=== PATIENT | male | born 1960 | race African-American/Black ===

== ENCOUNTER 2017-02-12 04:05 | Emergency (ER) | payer OTHER ==
[~2017-02-12] VITALS: Ht 180.3 cm; Wt 78.6 kg
[2017-02-12 04:13] VITALS: TEMP 36.3; Ht 180.3 cm; Wt 78.6 kg
[2017-02-12] MEDS ORDERED: SODIUM CHLORIDE 0.9% 1000ML 1,000 ML IV STA (04:35)
[2017-02-12] MEDS ORDERED: ONDANSETRON INJ 2 MG/ML 2 ML VIAL IV STA (04:35)
[2017-02-12] MEDS ORDERED: MoRPHine SULFATE 10 MG/ML CARP/VIAL IV STA (04:35)
[2017-02-12 04:44] LABS: BASO % 0.1 %; BASO ABS # 0.01 K/uL (0-0.2); COMPLETE YES; EOS % 0.2 %; HEMATOCRIT 44.5 % (42-52); IG% 0.3 %; LYMPH % 14.3 %; LYMPH ABS # 1.44 K/uL (1.2-3.4); MEAN CELL VOLUME 84.4 fL (80-100); MEAN CORPUSCULAR HEMOGLOBIN 28.5 pg (25-34); MEAN CORPUSCULAR HGB CONC 33.7 g/dl (32-36); MEAN PLATELET VOLUME 10.6 fL (7.4-10.4); MONO % 3.9 %; NEUT % 81.2 %; PLATELET COUNT 302 K/uL (130-400); RED BLOOD COUNT 5.27 M/uL (4.7-6.1); WHITE BLOOD COUNT 10.08 K/uL (4.8-10.8)
[2017-02-12] MEDS ORDERED: OPTIRAY 320 IV PRN (04:45)
--- NOTE | 2017-02-12 05:08 | EMERGENCY ROOM VISIT NOTE ---
History First contact with patient: 04:23 Chief Complaint: ABDOMINAL PAIN Stated Complaint: ABDOMINAL PAIN/ EMISIS Nursing Triage Summary: pt presents by ems with c/o of abd pain that radiates to back that started yesterday,reports 1 episode of red tinged emesis but states drank grape juice earlier in the day, rates pain 10/10 History of Present Illness The patient is a 56 year old male who presents to the Emergency Room with complaints of abdominal pain which began yesterday. The patient reports he has had upper abdominal pain with radiation into the back which started yesterday morning when he woke up. He has been nauseous and had one episode of vomiting today. He believes there may have been a small amount of blood in the vomit, but is unsure. He states that he feels the abdominal pain as a cramping sensation and rates the discomfort a 7/10. He had some similar symptoms about 3 weeks ago which resolved without treatment. The patient does admit to fairly heavy alcohol use. He drinks at least one 24 ounce can of light beer per night , sometimes more. He denies any past medical history. He denies any fevers/ chills, chest pain/shortness of breath, changes in bowel movements or urinary symptoms. Review of Systems A complete 10 point review of systems was reviewed with the patient with pertinent positives and negatives as per history of present illness. All else were negative. Social History Smoking Status: Never Smoker Current/Historical Medications Scheduled Ciprofloxacin Hcl (Cipro), 500 MG PO BID Metronidazole (Flagyl), 500 MG PO TID Scheduled PRN Hydrocodone/Acetaminophen 5MG/325MG ([place] 5MG/325MG), 1-2 TABLET PO Q4H PRN for Pain Physical Exam Vital Signs Date Time Temp Pulse Resp B/P (MAP) Pulse Ox O2 Delivery O2 Flow Rate FiO2 02/12/17 09:12 71 18 138/85 99 02/12/17 07:35 67 16 144/92 98 Room Air 02/12/17 06:13 69 16 155/89 97 Room Air 02/12/17 04:13 36.3 64 15 177/102 99 Room Air Physical Exam VITALS: Vitals are noted on the nurse's note and reviewed by myself. Vital signs stable. GENERAL: This is a 56-year-old male, in no acute distress, nondiaphoretic, well- developed well-nourished. EARS: External auditory canals clear, tympanic membranes pearly garibay without erythema or effusion bilaterally. EYES: Pupils equal round and reactive to light and accommodation. MOUTH: Mucous membranes moist. Tonsils are not enlarged. Pharynx without erythema or exudate. NECK: Supple without nuchal rigidity. No lymphadenopathy. HEART: Regular rate and rhythm without murmurs gallops or rubs. LUNGS: Clear to auscultation bilaterally without wheezes, rales or rhonchi. No retractions or accessory muscle use. ABDOMEN: Positive bowel sounds x 4. Soft, generalized tenderness to palpation throughout the abdomen. No guarding or rebound tenderness. NEURO: Patient was alert and oriented to person place and time. Medical Decision & Procedures ER Provider Diagnostic Interpretation: CT SCAN OF THE ABDOMEN AND PELVIS WITH IV CONTRAST FINDINGS: Lung bases: The heart is normal in size and without pericardial effusion. The lung bases are clear. Liver: The contrast-enhanced liver is enlarged, measuring 19 cm in length. Liver demonstrates heterogeneous attenuation. The surface contour is normal. There is no intrahepatic biliary ductal dilatation. The hepatic veins and portal veins are patent. Mild periportal edema is observed. Gallbladder: Unremarkable. Spleen: Normal in size and attenuation. Pancreas: Unremarkable. Adrenal glands: Unremarkable. Kidneys: The contrast enhanced kidneys are normal in size and without hydronephrosis. The kidneys enhance symmetrically. Abdominal vasculature: The abdominal aorta is normal in course and caliber. Bowel: There is moderate diverticulosis of the right colon. There is inflammatory stranding identified around the cecum, likely representing mild acute diverticulitis of the right colon. No abscess is seen. No bowel obstruction is seen. The appendix is well-visualized and normal. Peritoneum: There is no intraperitoneal free air. Trace free fluid is seen in the right paracolic gutter. There is a small fat-containing umbilical hernia. Lymphadenopathy: There is a 3.4 x 2.0 cm necrotic appearing structure in the central mesentery seen on image 239. This likely represents an abnormal mesenteric lymph node. There are numerous additional mildly enlarged mesenteric lymph nodes with surrounding inflammatory stranding. A lead generation representative node is seen in the left upper quadrant on image #183 measuring 3.4 x 2.6 cm. Calcification containing nodes with stranding stranding are seen on image #215. A similar-appearing left external iliac chain node is seen on image #360. There is a 4.2 x 2.8 cm centrally necrotic appearing lymph node in the left groin seen on axial image #453. Pelvic viscera: The prostate gland is markedly enlarged and heterogeneous. There is median lobe hypertrophy. The bladder wall appears mildly thickened and trabeculated suggesting chronic outlet obstruction. Skeletal structures: There is mild lumbosacral spondylosis. No lytic or blastic lesions are seen. IMPRESSION: 1. Findings are consistent with mild acute diverticulitis of the right colon. No intraperitoneal free air is seen and there is no evidence of abscess. 2. There are numerous enlarged and abnormal appearing mesenteric lymph nodes, with similar-appearing enlarged nodes in the left iliac chain and left inguinal region. Several of these contain calcifications as well as central low attenuation which likely represents necrosis. The appearance is nonspecific, with both infectious and neoplastic etiologies in the differential. Mesenteric tuberculosis could have this appearance. Clinical correlation will be essential. 3. Hepatomegaly with evidence of periportal edema. 4. Prostatomegaly with evidence of chronic bladder outlet obstruction. 5. Additional findings as above. Laboratory Results 02/12/17 03:53 Red Blood Count 5.27, Mean Corpuscular Volume 84.4, Mean Corpuscular Hemoglobin 28.5, Mean Corpuscular Hemoglobin Concent 33.7, Mean Platelet Volume 10.6, Neutrophils (%) (Auto) 81.2, Lymphocytes (%) (Auto) 14.3, Monocytes (%) (Auto) 3.9, Eosinophils (%) (Auto) 0.2, Basophils (%) (Auto) 0.1, Neutrophils # (Auto) 8.19, Lymphocytes # (Auto) 1.44, Monocytes # (Auto) 0.39, Eosinophils # (Auto) 0.02, Basophils # (Auto) 0.01 02/12/17 03:53 Test 02/12/17 03:53 02/12/17 05:50 02/12/17 07:59 White Blood Count 10.08 K/uL (4.8-10.8) Red Blood Count 5.27 M/uL (4.7-6.1) Hemoglobin 15.0 g/dL (14.0-18.0) Hematocrit 44.5 % (42-52) Mean Corpuscular Volume 84.4 fL (80-100) Mean Corpuscular Hemoglobin 28.5 pg (25-34) Mean Corpuscular Hemoglobin Concent 33.7 g/dl (32-36) Platelet Count 302 K/uL (130-400) Mean Platelet Volume 10.6 fL (7.4-10.4) Neutrophils (%) (Auto) 81.2 % Lymphocytes (%) (Auto) 14.3 % Monocytes (%) (Auto) 3.9 % Eosinophils (%) (Auto) 0.2 % Basophils (%) (Auto) 0.1 % Neutrophils # (Auto) 8.19 K/uL (1.4-6.5) Lymphocytes # (Auto) 1.44 K/uL (1.2-3.4) Monocytes # (Auto) 0.39 K/uL (0.11-0.59) Eosinophils # (Auto) 0.02 K/uL (0-0.5) Basophils # (Auto) 0.01 K/uL (0-0.2) RDW Standard Deviation 46.1 fL (36.4-46.3) RDW Coefficient of Variation 14.9 % (11.5-14.5) Immature Granulocyte % (Auto) 0.3 % Immature Granulocyte # (Auto) 0.03 K/uL (0.00-0.02) Anion Gap 7.0 mmol/L (3-11) Est Creatinine Clear Calc Drug Dose 108.3 ml/min Estimated GFR () 115.6 Estimated GFR (Non- 99.8 BUN/Creatinine Ratio 11.8 (10-20) Calcium Level 9.0 mg/dl (8.5-10.1) Total Bilirubin 0.7 mg/dl (0.2-1) Aspartate Amino Transf (AST/SGOT) 19 U/L (15-37) Alanine Aminotransferase (ALT/SGPT) 29 U/L (12-78) Alkaline Phosphatase 80 U/L (45-117) Troponin I < 0.015 ng/ml (0-0.045) Total Protein 7.6 gm/dl (6.4-8.2) Albumin 3.7 gm/dl (3.4-5.0) Globulin 3.9 gm/dl (2.5-4.0) Albumin/Globulin Ratio 0.9 (0.9-2) Lipase 168 U/L (73-393) Chemistry Specimen Hemolysis Urine Color YELLOW Urine Appearance CLEAR (CLEAR) Urine pH 6.0 (4.5-7.5) Urine Specific [place] 1.031 (1.000-1.030) Urine Protein NEG (NEG) Urine Glucose (UA) NEG (NEG) Urine Ketones 2+ (NEG) Urine Occult Blood NEG (NEG) Urine Nitrite NEG (NEG) Urine Bilirubin NEG (NEG) Urine Urobilinogen NEG (NEG) Urine Leukocyte Esterase NEG (NEG) Bedside Lactic Acid Venous 0.71 mmol/L (0.90-1.70) Medications Administered Medications (Trade) Dose Ordered Sig/Tong Route Start Time Stop Time Status Last Admin Dose Admin Sodium Chloride 1,000 ml @ 999 mls/hr Q1H1M STAT IV 02/12/17 04:35 02/12/17 05:35 DC 02/12/17 05:48 999 MLS/HR Ondansetron HCl (Zofran Inj) 4 mg NOW STAT IV 02/12/17 04:35 02/12/17 04:37 DC 02/12/17 05:43 4 MG Morphine Sulfate (MoRPHine SULFATE INJ) 6 mg NOW STAT IV 02/12/17 04:35 02/12/17 04:37 DC 02/12/17 05:43 6 MG Tuberculin PPD 5 tu/Syringe 0.1 ml @ 0 mls/hr ONE ONCE INTRAD 02/12/17 08:15 02/12/17 08:16 DC 02/12/17 08:28 0.1 MLS/HR ECG Rate (beats per minute): 60 Rhythm: normal sinus Findings: no acute ischemic change, no ectopy Comparison ECG Date: no prior available ED Course The patient was evaluated as above. Labs were drawn and IV access was obtained. Patient was medicated with 1 L NSS, 6 mg morphine and [address] of the abdomen and pelvis was performed and read by radiology as above. The case was discussed with Dr. Tellez of radiology. Discharge instructions were reviewed with the patient. The patient verbalized understanding of my assessment and treatment plan and was discharged home in good condition. Medical Decision Differential diagnosis includes diverticulitis, appendicitis, pancreatitis, cholecystitis, small bowel obstruction, among others. The patient is a 56-year-old male who presents today complaining of upper abdominal pain and nausea. Labs revealed no leukocytosis, anemia, or concerning electrolyte abnormalities. LFTs and creatinine within normal limits. Lipase not elevated. Urinalysis was not suggestive of infection. CT scan was performed and did show acute diverticulitis. I feel is likely the cause of the patient's symptoms. However, CT also incidentally showed several necrotic lymph nodes as well as a mass concerning for malignancy or mesenteric tuberculosis. Point of care Lactic acid was obtained and was not elevated. I had a lengthy discussion with the patient. He does not seem to have any risk factors for tuberculosis. He has never been incarcerated for homeless. He does not work any healthcare facility. He has not traveled to any foreign countries. He denies any possible tuberculosis exposures. He denies any respiratory symptoms. The patient will certainly need a full workup for this, however he is not acutely ill and I feel this may be performed as an outpatient. Chest x-ray was performed does not show any pulmonary lesions. I do not feel that the patient has active TB based on this. He will have a PPD today which will be checked in 2 days. Case management was able to make the patient an appointment for follow-up with a primary care provider early next week. He will be treated with Cipro and Flagyl for his diverticulitis. Patient was informed not to drink alcohol while taking this medication. The patient's case was reviewed with Dr. Vang, ED attending physician, who agreed with my assessment and treatment plan. Based on the patient's presentation and work up, I feel the patient is stable for outpatient treatment. The patient was educated to return to the emergency department for any worsening of their current condition or new/concerning symptoms. He will follow up with [facility] primary care next week. Medication Reconcilliation Current Medication List: was personally reviewed by me Blood Pressure Screening Patient's blood pressure: Elevated blood pressure Blood pressure disposition: Elevated BP felt to be situational Impression Primary Impression: Acute diverticulitis Additional Impression: Intraabdominal mass Departure Information Dispostion Home / Self-Care Condition GOOD Prescriptions Hydrocodone/Acetaminophen 5MG/325MG ([place] 5MG/325MG) Tab 1-2 TABLET PO Q4H Y for Pain, #10 TAB For Initial Treatment Prov: Shirley Worthington PA-C 02/12/17 Metronidazole (Flagyl) 500 Mg Tab 500 MG PO TID for 10 Days, #30 TAB Prov: Shirley Worthington PA-C 02/12/17 Ciprofloxacin Hcl (CIPRO) 500 Mg Tab 500 MG PO BID for 10 Days, #20 TAB Prov: Shirley Worthington PA-C 02/12/17 Referrals Polly Bartlett D.O. (PCP) Patient Instructions My [facility] Additional Instructions You were prescribed ciprofloxacin to be taken as prescribed for 10 days. This is an antibiotic. All antibiotics have the potential to cause diarrhea. Stop this medication and contact a medical provider if you were to develop any significant adverse side effects including: wheezing, shortness of breath, passing out, vomiting, or a diffuse rash. Always take antibiotics as directed and COMPLETE the ENTIRE course regardless of the improvement of your symptoms. You were prescribed metronidazole to be taken as prescribed for 10 days. This is an antibiotic. All antibiotics have the potential to cause diarrhea. Stop this medication and contact a medical provider if you were to develop any significant adverse side effects including: wheezing, shortness of breath, passing out, vomiting, or a diffuse rash. Always take antibiotics as directed and COMPLETE the ENTIRE course regardless of the improvement of your symptoms. Do not drink any alcoholic taking this medication, Asacol severe nausea and vomiting. For pain control, you can use the following [id number] medicines (if >12 yo): - Regular strength (325mg/tab) Tylenol (acetaminophen) 2 tabs every 4-6 hours as needed. Do not exceed 12 tablets in a 24 hour period. Avoid taking more than 4 grams (4000 mg) of Tylenol per day. This includes any other sources of acetaminophen you may take on a regular basis. - Regular strength (200 mg/tab) Advil (ibuprofen) 1-2 tabs every 4-6 hours as needed. Do not exceed a dose of 3200 mg per day. You have been prescribed [place] to be used for pain control. Take 1-2 tablets every 4-6 hours as needed for pain. This is a narcotic medication. You cannot drive or consume alcohol while on this medicine. This medicine should only be used for pain that cannot be controlled with [id number] pain medicines. Return to the emergency department Wednesday or Wednesday to have your PPD (the injection in your arm) checked. Follow-up with a primary care provider as scheduled for you. Return to the emergency department with worsening pain, worsening vomiting, fevers or any other new/concerning symptoms. Problem Qualifiers
[2017-02-12 05:18] LABS: ALB/GLOB RATIO 0.9 (0.9-2); ALKALINE PHOSPHATASE 80 U/L (45-117); ALT/SGPT 29 U/L (12-78); AST/SGOT 19 U/L (15-37); BLOOD UREA NITROGEN 10 mg/dl (7-18); BUN/CREATININE RATIO 11.8 (10-20); CARBON DIOXIDE 29 mmol/L (21-32); CHLORIDE 100 mmol/L (98-107); CREATININE 0.83 mg/dl (0.60-1.40); GLUCOSE 104 mg/dl (70-99); POTASSIUM 3.5 mmol/L (3.5-5.1); SODIUM 136 mmol/L (136-145)
[2017-02-12 06:01] LABS: URINE APPEARANCE CLEAR (CLEAR); URINE BILIRUBIN NEG (NEG); URINE COLOR YELLOW; URINE NITRITE NEG (NEG); URINE SPECIFIC GRAVITY 1.031 (1.000-1.030); UROBILINOGEN NEG (NEG); ZZUR CULT IF INDIC CLEAN CATCH NO
[2017-02-12 06:03] LABS: MANUAL MICROSCOPIC REQUIRED? NO; REVIEW REQ? NO
--- NOTE | 2017-02-12 07:36 | DIAGNOSTIC IMAGING REPORT ---
CT SCAN OF THE ABDOMEN AND PELVIS WITH IV CONTRAST CLINICAL HISTORY: Generalized abdominal pain. COMPARISON STUDY: No priors. TECHNIQUE: Following the IV administration of 94 cc of Optiray 320, CT scan of the abdomen and pelvis is performed from the lung bases to the proximal femora. Images are reviewed in the axial, sagittal, and coronal planes. IV contrast was administered without complication. A dose lowering technique was utilized adhering to the principles of ALARA. CT DOSE: 371.04 mGy.cm FINDINGS: Lung bases: The heart is normal in size and without pericardial effusion. The lung bases are clear. Liver: The contrast-enhanced liver is enlarged, measuring 19 cm in length. Liver demonstrates heterogeneous attenuation. The surface contour is normal. There is no intrahepatic biliary ductal dilatation. The hepatic veins and portal veins are patent. Mild periportal edema is observed. Gallbladder: Unremarkable. Spleen: Normal in size and attenuation. Pancreas: Unremarkable. Adrenal glands: Unremarkable. Kidneys: The contrast enhanced kidneys are normal in size and without hydronephrosis. The kidneys enhance symmetrically. Abdominal vasculature: The abdominal aorta is normal in course and caliber. Bowel: There is moderate diverticulosis of the right colon. There is inflammatory stranding identified around the cecum, likely representing mild acute diverticulitis of the right colon. No abscess is seen. No bowel obstruction is seen. The appendix is well-visualized and normal. Peritoneum: There is no intraperitoneal free air. Trace free fluid is seen in the right paracolic gutter. There is a small fat-containing umbilical hernia. Lymphadenopathy: There is a 3.4 x 2.0 cm necrotic appearing structure in the central mesentery seen on image 239. This likely represents an abnormal mesenteric lymph node. There are numerous additional mildly enlarged mesenteric lymph nodes with surrounding inflammatory stranding. A accounts receivable representative node is seen in the left upper quadrant on image #183 measuring 3.4 x 2.6 cm. Calcification containing nodes with stranding stranding are seen on image #215. A similar-appearing left external iliac chain node is seen on image #360. There is a 4.2 x 2.8 cm centrally necrotic appearing lymph node in the left groin seen on axial image #453. Pelvic viscera: The prostate gland is markedly enlarged and heterogeneous. There is median lobe hypertrophy. The bladder wall appears mildly thickened and trabeculated suggesting chronic outlet obstruction. Skeletal structures: There is mild lumbosacral spondylosis. No lytic or blastic lesions are seen. IMPRESSION: 1. Findings are consistent with mild acute diverticulitis of the right colon. No intraperitoneal free air is seen and there is no evidence of abscess. 2. There are numerous enlarged and abnormal appearing mesenteric lymph nodes, with similar-appearing enlarged nodes in the left iliac chain and left inguinal region. Several of these contain calcifications as well as central low attenuation which likely represents necrosis. The appearance is nonspecific, with both infectious and neoplastic etiologies in the differential. Mesenteric tuberculosis could have this appearance. Clinical correlation will be essential. 3. Hepatomegaly with evidence of periportal edema. 4. Prostatomegaly with evidence of chronic bladder outlet obstruction. 5. Additional findings as above. Electronically signed by: Samuel Tellez M.D. 02/12/2017 7:35 AM Dictated Date/Time: 02/12/2017 7:03 AM
[2017-02-12] MEDS ORDERED: TUBERCULIN SKIN TEST 5 TU in SYRINGE 0 ML INTRAD ONE (08:15)
[2017-02-12] MEDS ORDERED: CIPR-255 PO (08:38)
[2017-02-12] MEDS ORDERED: HYDR-5688 PO (08:38)
[2017-02-12] MEDS ORDERED: METR-163 PO (08:38)
--- NOTE | 2017-02-12 08:42 | DIAGNOSTIC IMAGING REPORT ---
TWO VIEW CHEST CLINICAL HISTORY: Abnormal abdominal CT scan. Question of mesenteric tuberculosis. FINDINGS: PA and lateral chest radiographs are obtained. No prior studies are available for comparison at the time of dictation. The cardiomediastinal silhouette is unremarkable. The lungs and pleural spaces are clear. There is no pneumothorax. The bony thorax appears intact. IMPRESSION: The lungs are clear. Electronically signed by: Samuel Tellez M.D. 02/12/2017 8:41 AM Dictated Date/Time: 02/12/2017 8:38 AM
[2017-02-12 09:12] VITALS: BP 138/85; PULSE 71; O2SAT 99
== END 2017-02-12 09:12 | disposition home or self-care (01) ==
LOC: C.EDA 04:09
DX: K57.32 Diverticulitis of large intestine without perforation or abscess without bleeding (principal); R19.00 Intra-abdominal and pelvic swelling, mass and lump, unspecified site

== ENCOUNTER 2017-02-14 12:45 | Emergency (ER) | payer OTHER ==
[~2017-02-14] VITALS: Ht 180.3 cm; Wt 76.4 kg
[~2017-02-14 12:45] MED LIST: CIPR-255 PO; HYDR-5688 PO; METR-163 PO
[2017-02-14 12:48] VITALS: TEMP 36.7; Ht 180.3 cm; Wt 76.4 kg
--- NOTE | 2017-02-14 13:25 | EMERGENCY ROOM VISIT NOTE ---
History Report prepared by Keily: Dilia Fortune Under the Supervision of: Dr. Orlin King D.O. First contact with patient: 13:02 Chief Complaint: OTHER COMPLAINT Stated Complaint: CHECKING FOR TB History of Present Illness The patient is a 56 year old male who presents to the Emergency Room with complaints of needing a TB test read. He reports he had been experiencing abdominal pain recently, so after undergoing a CT scan, he had a PPD test placed. He was placed on antibiotics for an abdominal infection, which he states have helped his pain. Earlier today he noticed the PPD test placed on his right forearm was raised and red in color. The patient denies any recent cough or hemoptysis. He denies any history of time in longterm, known contacts with TB or ever living with someone with TB. He denies any recent travel. He has experienced some recent weight loss. 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 A total of 6 systems reviewed and were otherwise negative. Past Medical & Surgical Medical Problems: (1) No significant past medical history Social History Smoking Status: Never Smoker Alcohol Use: occasionally Drug Use: none Marital Status: Housing Status: lives with family Occupation Status: employed Current/Historical Medications Scheduled Ciprofloxacin Hcl (Cipro), 500 MG PO BID Metronidazole (Flagyl), 500 MG PO TID Scheduled PRN Hydrocodone/Acetaminophen 5MG/325MG (Taberg 5MG/325MG), 1-2 TABLET PO Q4H PRN for Pain Allergies Coded Allergies: No Known Allergies (Unverified , 02/12/17) Physical Exam Vital Signs Date Time Temp Pulse Resp B/P (MAP) Pulse Ox O2 Delivery O2 Flow Rate FiO2 02/14/17 14:56 86 18 165/99 97 Room Air 02/14/17 12:48 36.7 71 18 159/95 94 Room Air Physical Exam GENERAL: Patient is awake, alert, in no acute distress, patient is resting comfortably and showing no signs of anxiety EYES: The conjunctivae are clear. The pupils are round and reactive. EARS, NOSE, MOUTH AND THROAT: The nose is without any evidence of any deformity. Mucous membranes are moist tongue is midline RESPIRATORY: Normal respiratory effort is noted there is no evidence of wheezing rhonchi or rales CARDIOVASCULAR: Regular rate and rhythm noted there no murmurs rubs or gallops normal S1 normal S2 GASTROINTESTINAL: The abdomen is soft. Bowel sounds are present in all quadrants. Abdomen is nontender MUSCULOSKELETAL/EXTREMITIES: There is no evidence of gross deformity full range of motion is noted in the hips and shoulders SKIN: There is a reddened area on right forearm where PPD was placed. There is erythema about 1 to 15 cm in diameter and the area is minimally raised. There is no obvious evidence of any rash. There are no petechiae, pallor or cyanosis noted. NEUROLOGIC: Patient is awake alert and oriented x3 Medical Decision & Procedures Laboratory Results Test 02/14/17 14:32 Laboratory results per my review. ED Course 1305: The patient was evaluated in room D1. A complete history and physical examination were performed. 1400: I spoke with one of the ED health supervisor paper coating. She recommends blood work and I consult Infectious Disease. 1432: I discussed the patients case with Jose Jay Infectious Disease. She recommends follow up with his PCP and to return if his symptoms worsen. 1500: I reevaluated the patient. He is feeling well and resting comfortably. I discussed his results and discharge instructions and he verbalized complete understanding and agreement. Medical Decision Prior records/ancillary studies reviewed. Triage Nursing notes reviewed. The patient is a 56-year-old male who presented to the emergency department for an evaluation of a PPD which required reading today. This was placed 2 days ago after an abnormal CAT scan the abdomen and pelvis. The patient does not have any respiratory complaints including no fever or hemoptysis at this time. He has a normal chest x-ray. The patient had erythema and induration at the PPD site. I discussed this with the on-call infectious disease physician. At this time the patient had further blood work drawn for tuberculosis. Follow-up with his primary care physician for the results. He has a scheduled appointment this Wednesday. He was also encouraged to return to the emergency Department immediately if he develop any respiratory symptoms such as fever cough or hemoptysis difficulty breathing or if need arises. Medication Reconcilliation Current Medication List: was personally reviewed by me Blood Pressure Screening Patient's blood pressure: Elevated blood pressure Blood pressure disposition: Referred to PCP Consults Time Called: 1430 Consulting Physician: Jose Jay Infectious Disease Returned Call: 1432 I discussed the patients case with Dr. Piper, [facility] Infectious Disease. She recommends follow up with his PCP and to return if his symptoms worsen. Impression Primary Impression: Positive PPD Scribe Attestation The scribe's documentation has been prepared under my direction and personally reviewed by me in its entirety. I confirm that the note above accurately reflects all work, treatment, procedures, and medical decision making performed by me. Departure Information Dispostion Home / Self-Care Referrals Polly Bartlett D.O. (PCP) Patient Instructions My [facility], TB Screening Skin, Tuberculin purified protein derivative PPD injection Additional Instructions Continue all medications as prescribed. Follow-up with your family this week for reevaluation and for laboratory results. Return to the emergency apartment immediately if symptoms worsen or if need arises
[2017-02-14 14:56] VITALS: BP 165/99; PULSE 86; O2SAT 97
== END 2017-02-14 15:22 | disposition home or self-care (01) ==
LOC: C.EDB 12:47 → C.EDD 15:22
DX: R76.11 Nonspecific reaction to tuberculin skin test without active tuberculosis (principal); R03.0 Elevated blood-pressure reading, without diagnosis of hypertension

== ENCOUNTER → 2017-05-26 | Outpatient (CLI) | payer OTHER ==
[~2017-05-26] MED LIST changes: -METR-163 PO
--- NOTE | 2017-05-26 12:13 | DIAGNOSTIC IMAGING REPORT ---
PET/CT SKULL-THIGH HISTORY: Lymphoma LYMPHOMA TECHNIQUE: PET/CT was performed from the base of the skull through the pelvis following the intravenous administration of 15.2 mCi of F18-FDG. Non-contrast CT imaging was performed over the same range without breath-hold for attenuation correction of PET images and anatomic correlation, but not for primary interpretation as it is not of standard diagnostic quality. CT DOSE: COMPARISON: CT abdomen and pelvis 02/12/2017 FINDINGS: HEAD AND NECK: There is no FDG-avid disease or significant lymphadenopathy in the imaged portions of the head and the neck. CHEST: Physiologic activity within the myocardium. No metabolically active hilar or mediastinal adenopathy. Bulky right axillary adenopathy with the largest right axillary node measuring 3 cm. SUV characteristics are benign 0.3. Prakash pathology a more superior location as a moderate increase in metabolic activity characteristics of the 2.5 or less. Maximum linear dimension in superior right axilla is 2 cm. No significant left axillary adenopathy is appreciated. ABDOMEN/PELVIS: Within the abdomen and pelvis are unremarkable activity characteristics of liver and spleen. Numerous omental and mesenteric prakash changes are present. Celiac axis prakash pathology measures 2.4 cm with metabolic activity characteristics of the 3.5. Left central prakash pathology measures up to 3.5 cm with SUV characteristics of 11. Nodes within the left mid abdominal region are somewhat matted and extending in an inferior fashion. Additional for nodes are also appreciated. Activity characteristics of the kidneys and urinary tracts appear unremarkable. There are findings of increased metabolic activity of known pathology in the right lower quadrant SUVs of 8.4. Maximum dimension is approximately 5.6 cm. Several left pelvic sidewall nodes are present measuring up to 2.6 cm and demonstrating SUV characteristics of 8. The inguinal regions are considered negative for significant pathologic prakash change. MUSCULOSKELETAL: There is no FDG-avid or destructive bone lesion. IMPRESSION: 1. 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 2. The largest prakash complexes involving the right axilla, periaortic region, with bulky adenopathy noted throughout the omental and mesenteric regions as described above. 3. Base to the prior study this would indicate moderately progressive disease. The above report was generated using voice recognition software. It may contain grammatical, syntax or spelling errors. Electronically signed by: Festus Rendon M.D. 05/26/2017 12:12 PM Dictated Date/Time: 05/26/2017 11:52 AM
== END | disposition home or self-care (01) ==
LOC: C.PET 09:05
PROVIDERS: ATTEND Internal Medicine Hematology
DX: C83.33 Diffuse large B-cell lymphoma, intra-abdominal lymph nodes (principal)

== ENCOUNTER 2024-07-11 12:35 | Observation (INO) ==
--- NOTE | 2024-07-11 12:45 | Emergency Department Note ---
Impression & Plan Abnormal EKG, Lymphoma in remission, SOB (shortness of breath) on exertion, Bilateral lower extremity edema, Hypokalemia ED Provider Note NAME: IVANNA GARCIA AGE: 63 SEX: M : 1960 ARRIVES VIA: Walk-In INFORMANT: Patient, ED PROVIDER(S): Jimi Martin MD CHIEF COMPLAINT: Shortness of breath MEDICAL DECISION MAKING: Patient presents with the above. IV was established and blood work was obtained. I did review the patient's outpatient EKG and this was repeated here. The patient does have diffuse T wave versions in the anterior lateral leads as well as inferiorly with an associated trace elevation of V2. No obvious STEMI criteria as this is not in contiguous leads. Patient without active chest pain. IV was established and blood work was obtained. Mild leukopenia and anemia with a white count of 4.09 and hemoglobin 11.4 respectively. Platelet count is unremarkable. Kidney function unremarkable. Troponin negative BNP not elevated. Urinalysis does not show evidence of obvious infection. Patient's chest x-ray does not show obvious volume overload. DVT ultrasound negative. Given the patient's abnormal EKG do believe the patient would benefit from at minimum continued cardiac testing as well as an echocardiogram with further discussion with cardiology. I did speak with the on-call hospitalist service SHELL Munguia and the patient was admitted by Dr. Schmidt. Discussion w/ other healthcare providers: SHELL Munguia and Dr. Schmidt inpatient medicine service Prior /Outside records reviewed: None Differential diagnosis: Cardiac ischemia, aortic dissection, pulmonary embolism, pneumothorax, pneumonia, pericarditis, myocarditis, GERD, cholecystitis, pancreatitis, musculoskeletal, as well as other pathologies were considered. Diagnostics, as interpreted by me: ECG: Normal sinus rhythm, rate of 67, wide QRS, left axis deviation, slight elevation in V2 although not in contiguous leads. T wave inversions noted inferiorly and laterally. T wave inversions in lead III appear to be old although more pronounced in 2 and aVF and T wave versions in the lateral leads are new for comparison. ST elevation in V2 also a change from comparison EKG from January 14, 2022 Cardiac monitoring: An order was placed for continuous cardiac monitoring. The monitor shows a rate of 69 with sinus rhythm. Patient was placed on pulse oximetry Medical decision rules: None Imaging studies: I informally interpreted the patient's chest x-ray does not show obvious pneumonia or pneumothorax with formal report to follow. HPI: Patient presents due to concern for outpatient referral and abnormal EKG. Patient states that he does have occasional chest pains but is not necessarily exertional. The patient reports that he initially presented as he was noticing some foot swelling which was initially in the right foot but seem to progress to a be in bilateral feet and has noticed some bilateral leg swelling. Patient denies any history of prior DVT or PE. Prior history of lymphoma and does still follow with Dr. Arredondo. Patient states that he has not undergone treatment in some time. Prior history of diuretic use but has not used in about 6 months in duration. The patient states that he is noticed more exertional dyspnea in the last 2 weeks. No falls or trauma. No history of DVT or PE. He has noted some left-sided calf pain. PAST MEDICAL HISTORY: See Below PAST SURGICAL HISTORY: See Below SOCIAL HISTORY: See Below HOME MEDICATIONS: See Below ALLERGIES: See Below VITALS: See Below PHYSICAL EXAMINATION: GENERAL: NAD, non-toxic. EYE EXAM: Normal conjunctiva. PERRL, no anisocoria and EOM's grossly intact w/o pain. OROPHARYNX: Moist mucus membranes, grossly normal dentition. NECK: Trachea midline, no stridor. Supple, no nuchal rigidity, no adenopathy, non-tender. No signs of meningismus. FROM of the neck with good chin to chest and neck extension. LUNGS: Clear to auscultation. Normal chest wall mechanics. HEART: NSR, no MRG. ABDOMEN: Abdomen soft, non-tender, no masses, no rebound or guarding. BACK: No CVA TTP. SKIN: No rashes and no bruising. UPPER EXTREMITIES: Upper extremities are grossly normal. LOWER EXTREMITIES: Grossly normal, no edema. NEURO EXAM: A&O x3, cranial nerves II-XII grossly intact, normal speech, moves all 4 extremities. Past Med/Surg History Problem List (Updated 07/12/24 @ 16:32 by Jimi Martin MD) Hydronephrosis, left Abnormal EKG (Acute) Hypertensive urgency Anemia Hypokalemia (Acute) Bilateral lower extremity edema (Acute) Chest pain SOB (shortness of breath) on exertion (Acute) Lymphoma in remission (Acute) Lumbar radiculopathy Hyperlipidemia Hypertension Medical History History of diverticulitis Positive PPD Acute diverticulitis Intraabdominal mass Lymphoma Surgical History No pertinent past surgical history Social History Smoking Status: Never smoker Hx Alcohol Use: No Hx Substance Use: No Preferred Language: [place] Leonean Communication Ability: Effective Stitchdown Thread Laster Required: No Beliefs That Will Affect Care: None marital status: Current Living Situation: Significant Other Other Information That Helps Us Care for You: No Feels Safe at Home: Yes Safety Concerns: Feels Safe At This Time Assistive Devices: None Allergies Allergies Allergy/AdvReac Type Severity Reaction Status Date / Time No Known Allergies Allergy Verified 01/14/22 22:51 Home Meds Home Medications Medication Instructions Recorded Confirmed cetirizine 10 mg tablet 10 mg PO DAILY 07/11/24 07/11/24 diclofenac sodium 1 % topical gel 1 ea topical BID PRN Pain 07/11/24 07/11/24 gabapentin 100 mg capsule 200 mg PO HS 07/11/24 07/11/24 ibuprofen 800 mg tablet 800 mg PO TID 07/11/24 07/11/24 lisinopril 40 mg tablet 40 mg PO DAILY 07/11/24 07/11/24 rosuvastatin 10 mg tablet 10 mg PO HS 07/11/24 07/11/24 Results & Data (ED) Vital Signs Vital Signs - 24 hr 07/11/24 12:38 07/11/24 12:52 Temperature 36.7 C Temperature Source Temporal Artery Scan Pulse Rate 71 69 Respiratory Rate 18 Respiratory Effort / Characteristics Non-Labored Spontaneous Respiratory Depth Normal Respiratory Pattern Regular Blood Pressure 184/106 H Blood Pressure Mean 132 Pulse Oximetry 99 Oxygen Delivery Method Room Air Sepsis Recent Fever Within 48 Hours No Sepsis New/Unexplained Change in Mental Status N/A Sepsis Action Taken by Nursing No Action Required Home Medications Current Medication List: was personally reviewed by me Laboratory Data Attestation: I reviewed the patient's lab results. 07/12/24 07:36 07/12/24 07:36 Lab Results 07/11/24 07/11/24 Range/Units 13:14 15:00 WBC 4.09 L (4.8-10.8) K/ul RBC 4.12 L (4.70-6.10) M/uL Hgb 11.4 L (14.0-18.0) g/dl Hct 34.9 L (42.0-52.0) % MCV 84.7 (80.0-100.0) fL MCH 27.7 (25.0-34.0) pg MCHC 32.7 (32.0-36.0) g/dL RDW Std Deviation 50.8 H (36.4-46.3) fL RDW Coeff of Josh 16.5 H (11.5-14.5) % Plt Count 164 (130-400) K/uL MPV 9.3 L (9.4-12.4) fL Immature Gran % (Auto) 0.5 % Neut % (Auto) 63.1 % Lymph % (Auto) 28.1 % Mcdonough % (Auto) 7.6 % Eos % (Auto) 0.5 % Baso % (Auto) 0.2 % Neut # (Auto) 2.58 (1.40-6.50) K/uL Lymph # (Auto) 1.15 L (1.20-3.40) K/uL Mcdonough # (Auto) 0.31 (0.11-0.59) K/uL Eos # (Auto) 0.02 (0.00-0.50) K/uL Baso # (Auto) 0.01 (0.00-0.20) K/uL Immature Gran # (Auto) 0.02 (0.01-0.20) K/uL PT 11.3 (9.0-12.0) Seconds INR 1.0 (0.9-1.1) APTT 30 (21-31) Seconds PTT Ratio 1.1 Sodium 143 (136-145) mmol/L Potassium 3.2 L (3.5-5.1) mmol/L Chloride 107 (98-107) mmol/L Carbon Dioxide 31 (21-32) mmol/L Anion Gap 5 (3-11) BUN 11 (6-23) mg/dl Creatinine 1.05 (0.6-1.4) mg/dl Est Cr Clr Drug Dosing 84.1 ml/min eGFR 80.76 BUN/Creatinine Ratio 10.5 (10-20) Glucose 90 (70-99(Fasting)) mg/dl Calcium 8.9 (8.6-10.3) mg/dl Magnesium 1.8 (1.7-2.4) mg/dl Total Bilirubin 1.1 H (0.2-1.0) mg/dl AST 12 L (13-39) U/L ALT 12 (7-52) U/L Alkaline Phosphatase 55 (34-104) U/L Troponin I High Sens < 2.3 (0-20) pg/ml B-Natriuretic Peptide 55 (0-100) pg/ml Total Protein 6.3 (6.0-8.3) gm/dl Albumin 3.9 (3.4-5.0) gm/dl Globulin 2.4 L (2.5-4.0) gm/dl Albumin/Globulin Ratio 1.6 (0.9-2) Urine Color Yellow Urine Appearance Clear (Clear) Urine pH 6.5 (4.5-7.5) Ur Specific [place] 1.014 (1.000-1.030) Urine Protein Negative (Negative) Urine Glucose (UA) Negative (Negative) Urine Ketones 1+ H (Negative) Urine Blood Negative (Negative) Urine Nitrite Negative (Negative) Urine Bilirubin Negative (Negative) Urine Urobilinogen Negative (Negative) Ur Leukocyte Esterase Negative (Negative) Administered Medications Acetaminophen (Acetaminophen 325 Mg Tab) 650 mg PO Q4H [facility] Stop: 08/10/24 19:10 Last Admin: 07/12/24 16:20 Dose: 650 mg Documented By: Admin: 07/12/24 11:18 Dose: 650 mg Documented By: Admin: 07/12/24 06:11 Dose: 650 mg Documented By: Admin: 07/12/24 05:34 Dose: Not Given Documented By: Admin: 07/12/24 01:01 Dose: Not Given Documented By: Admin: 07/11/24 20:23 Dose: 650 mg Documented By: KRT Cetirizine HCl (Cetirizine Hcl 10 Mg Tablet) 10 mg PO DAILY JER Stop: 08/11/24 08:59 Last Admin: 07/12/24 09:54 Dose: 10 mg Documented By: AM Enoxaparin Sodium (Enoxaparin Inj 40 Mg/0.4 Ml Syr) 40 mg SQ Q24H JER Stop: 08/10/24 19:10 Last Admin: 07/11/24 20:24 Dose: 40 mg Documented By: KRT Furosemide (Furosemide Inj 20 Mg/2 Ml Vial) 20 mg IV DAILY JER Stop: 08/11/24 08:59 Last Admin: 07/12/24 09:54 Dose: 20 mg Documented By: AM Gabapentin (Gabapentin 100 Mg Cap) 200 mg PO HS JER Stop: 08/10/24 20:59 Last Admin: 07/11/24 20:26 Dose: 200 mg Documented By: KRT Hydralazine HCl (Hydralazine Hcl 20 Mg/Ml Vial) 10 mg IV Q4 PRN PRN Reason: Hypertension Stop: 08/10/24 15:51 Last Admin: 07/11/24 17:25 Dose: 10 mg Documented By: KATIUSKA Lisinopril (Lisinopril 40 Mg Tab) 40 mg PO DAILY JER Stop: 08/11/24 08:59 Last Admin: 07/12/24 09:53 Dose: 40 mg Documented By: AM Oxycodone HCl (Oxycodone Hcl Ir 5 Mg Tab (Immediate Release)) 5 mg PO Q6 PRN PRN Reason: Mod-Sev Pain (Scale 4-10) Stop: 07/25/24 19:10 Last Admin: 07/12/24 09:54 Dose: 5 mg Documented By: AM Rosuvastatin Calcium (Rosuvastatin Calcium 10 Mg Tab) 10 mg PO HS [facility] Stop: 08/10/24 20:59 Last Admin: 07/11/24 20:26 Dose: 10 mg Documented By: KRT Spironolactone (Spironolactone 12.5 Mg Tab) 12.5 mg PO DAILY JER Stop: 08/11/24 10:14 Last Admin: 07/12/24 11:16 Dose: 12.5 mg Documented By: AM Discontinued Medications Aspirin (Aspirin Chew 324 Mg) 324 mg PO NOW STA Stop: 07/11/24 14:56 Last Admin: 07/11/24 14:58 Dose: 324 mg Documented By: Furosemide (Furosemide Inj 20 Mg/2 Ml Vial) 20 mg IV ONE ONE Stop: 07/11/24 16:27 Last Admin: 07/11/24 17:27 Dose: 20 mg Documented By: KATIUSKA Ioversol (Optiray 320 125ml) 115 ml IV ONCE ONE Stop: 07/11/24 16:07 Last Admin: 07/11/24 16:07 Dose: 115 ml Documented By: NOREEN Lisinopril (Lisinopril 40 Mg Tab) 40 mg PO ONE ONE Stop: 07/11/24 15:55 Last Admin: 07/11/24 16:24 Dose: 40 mg Documented By: KATIUSKA Potassium Chloride (Potassium Chloride Crtab 20 Meq Tabcr) 40 meq PO NOW STA Stop: 07/11/24 15:58 Last Admin: 07/11/24 16:25 Dose: 40 meq Documented By: KATIUSKA Potassium Chloride (Potassium Chloride Crtab 20 Meq Tabcr) 20 meq PO TODAY@1800 ONE Stop: 07/11/24 18:01 Last Admin: 07/11/24 17:25 Dose: 20 meq Documented By: KATIUSKA Imaging Data Radiologist's Impression: Chest X-Ray 07/11/24 13:05 XR chest 1V portable CLINICAL HISTORY: Dyspnea COMPARISON STUDY: None FINDINGS: There is mild cardiomegaly without pulmonary vascular congestion. No effusion, consolidation, or pneumothorax. IMPRESSION: No acute findings. ACT 112: Negative or not required by law. Electronically signed by: Elie Rainey M.D. 07/11/2024 1:42 PM Venous Doppler Study 07/11/24 13:05 Technique: Venous ultrasound evaluation was performed utilizing grayscale, color Doppler and wave form evaluation. Images were also obtained with and without compression Findings: The left common femoral, superficial femoral, popliteal, and visualized calf veins demonstrate normal anechoic lumens with full compressibility. Normal flow is seen on color Doppler images. Expected waveforms were produced with augmentation maneuvers Impression: No evidence of left leg deep venous thrombosis Electronically signed by Roger Busch 07-11-2024 4:09 PM Chest CTA 07/11/24 15:52 Technique: Axial computed tomography images were obtained of the chest after the administration of intravenous contrast according to the CT angiogram protocol Findings: There is no definite sign of pulmonary embolism. There is subsegmental atelectasis in both lower lobes. The lungs otherwise appear clear without infiltrate or mass. There is no pleural effusion or pneumothorax. There is no sign of pulmonary fibrosis or other diffuse interstitial process. No endobronchial lesion is seen There is no mediastinal, hilar, or axillary adenopathy. The thoracic aorta appears unremarkable with no sign of aneurysm or dissection. There is no pericardial effusion There is partially visualized left hydronephrosis. No fracture is seen. No focal osseous lesion is evident Impression: 1. No definite sign of pulmonary embolism 2. Mild bilateral lower lobe atelectasis 3. Partially visualized left hydronephrosis. CT of the abdomen and pelvis could be considered for further evaluation ACT 112: Positive. There are findings on this exam that require communication between the performing entity and the patient following Patient Test Result Information Act ([place] ACT 112) guidelines. Electronically signed by Roger Busch 07-11-2024 4:35 PM Discharge Plan Visit Data Chief Complaint: Chest Pain Stated Complaint: CHEST PAIN ED Provider: Jimi Martin Discharge Problem: Abnormal EKG, Lymphoma in remission, SOB (shortness of breath) on exertion, Bilateral lower extremity edema, Hypokalemia Patient Disposition: Admitted As Inpatient Discharge Instructions Interventions: ED Discharge Assessment Last Done: 07/11/24 18:29
--- NOTE | 2024-07-11 13:43 | XRay Report ---
XR chest 1V portable CLINICAL HISTORY: Dyspnea COMPARISON STUDY: None FINDINGS: There is mild cardiomegaly without pulmonary vascular congestion. No effusion, consolidatio n, or pneumothorax. IMPRESSION: No acute findings. ACT 112: Negative or not required by law. Electronically signed by: Elie Rainey M.D. 07/11/2024 1:42 PM
[2024-07-11 13:46] LABS: Basophils # (auto) 0.01 K/uL (0.00-0.20); Basophils % (auto) 0.2 %; Eosinophils # (auto) 0.02 K/uL (0.00-0.50); Eosinophils % (auto) 0.5 %; Hematocrit (blood only) 34.9 % (42.0-52.0); Hemoglobin 11.4 g/dl (14.0-18.0); Immature Granulocytes # (auto) 0.02 K/uL (0.01-0.20); Immature Granulocytes % (auto) 0.5 %; Lymphocytes # (auto) 1.15 K/uL (1.20-3.40); Lymphocytes % (auto) 28.1 %; Mean Corpuscular Hemoglobin 27.7 pg (25.0-34.0); Mean Corpuscular Hgb Conc 32.7 g/dL (32.0-36.0); Mean Corpuscular Volume 84.7 fL (80.0-100.0); Mean Platelet Volume 9.3 fL (9.4-12.4); Monocytes # (auto) 0.31 K/uL (0.11-0.59); Monocytes % (auto) 7.6 %; Neutrophils # (auto) 2.58 K/uL (1.40-6.50); Neutrophils % (auto) 63.1 %; Partial Thromboplastin Ratio 1.1; Partial Thromboplastin Time 30 Seconds (21-31); Platelet Count 164 K/uL (130-400); Prothrombin Time 11.3 Seconds (9.0-12.0); RDW Coefficient of Variation 16.5 % (11.5-14.5); RDW Standard Deviation 50.8 fL (36.4-46.3); Red Blood Count 4.12 M/uL (4.70-6.10); White Blood Count 4.09 K/ul (4.8-10.8)
[2024-07-11 13:49] LABS: Albumin Level 3.9 gm/dl (3.4-5.0); Anion Gap 5 (3-11); Bilirubin,Total 1.1 mg/dl (0.2-1.0); Calcium 8.9 mg/dl (8.6-10.3); Carbon Dioxide 31 mmol/L (21-32); Chloride 107 mmol/L (98-107); Magnesium 1.8 mg/dl (1.7-2.4); Potassium 3.2 mmol/L (3.5-5.1); Sodium 143 mmol/L (136-145)
[2024-07-11 13:55] LABS: Alanine Aminotransferase 12 U/L (7-52); Albumin Globulin Ratio 1.6 (0.9-2); Alkaline Phosphatase 55 U/L (34-104); Aspartate Aminotransferase 12 U/L (13-39); BUN Creatinine Ratio 10.5 (10-20); Blood Urea Nitrogen 11 mg/dl (6-23); Creatinine Clr Calc Pharmacy 84.1 ml/min; Globulin 2.4 gm/dl (2.5-4.0); Glucose 90 mg/dl (70-99(Fasting)); Total Protein 6.3 gm/dl (6.0-8.3)
[2024-07-11 14:06] LABS: Troponin I High Sensitivity < 2.3 pg/ml (0-20)
[2024-07-11] MEDS: ASPIRIN CHEW 324 MG PO STA (14:58)
--- NOTE | 2024-07-11 15:02 | History & Physical Report ---
Date of Service July 11, 2024 Assessment & Plan (1) Chest pain: (2) SOB (shortness of breath) on exertion: (3) Bilateral lower extremity edema: (4) Hypertensive urgency: (5) Hypokalemia: (6) Anemia: (7) Hyperlipidemia: (8) Lumbar radiculopathy: (9) Lymphoma in remission: Plan 63 year old male with PMH of HTN, HLD, degeneration of intervertebral disc of lumbar region with radiculopathy, and lymphoma s/p bone marrow transplant who presented to the ED with an abnormal EKG at his PCP office today and is being admitted for work up of chest pain, SOB on exertion, bilateral LE edema, and hypertensive urgency. Chest pain, SOB on exertion, bilateral LE edema Differentials include NSTEMI, HF, PE, DVT, PNA EKG with T wave inversions in lateral and inferior leads Labs remarkable for anemia and hypokalemia Work up thus far includes negative CXR, venous doppler, BNP, troponin CT chest negative for PE but revealed partially visualized left hydronephrosis - ordered CT abdomen Echo pending Trend troponin IV lasix 20mg x1 and daily TEDs stockings Cardiology consult Hypertensive urgency BPs 170-180/90-100s in ED Patient did not take BP meds this am Lisinopril x1 and continue daily per home dosing PRN hydralazine per dose instructions Hypokalemia KCl 60meq x1 Recheck BMP in am Anemia Baseline Hgb 12-13 per records Patient asymptomatic Monitor, recheck CBC in am Hyperlipidemia Continue statin per home dosing Lumbar radiculopathy Follows with interventional pain MRI of lumbar spine in May 2024 demonstrating disc protrusion at L3-L4 Recently started on gabapentin - continue per home dosing Takes ibuprofen tid at home - holding while inpt Scheduled tylenol and PRN oxycodone for pain control Lymphoma in remission Surveillance Follows with Dr Xie yearly DVT Prophylaxis: subQ lovenox Code Status: FULL CODE - As per discussion at bedside with the patient. PCP: Dr Festus Coyle MD Disposition: admit to tele under observation Patient seen in collaboration with Dr Schmidt. Please see addendum. I spent a total of 75 minutes coordinating, documenting and providing care for this patient excluding time spent in the performance of separately billed services or time spent by another provider/QHP. Admission and Anticipated Discharge Date Admission Date: 07/11/2024 History of Present Illness Chief Complaint: chest pain Primary Care Provider: Marsha Mccoy MD 63 year old male with PMH of HTN, HLD, degeneration of intervertebral disc of lumbar region with radiculopathy, and lymphoma s/p bone marrow transplant who presented to the ED with an abnormal EKG at his PCP office today. Patient states he noticed lower extremity edema that has been worsening over the last month. He called his PCP office to see if he could get a refill on his lasix (previously took for lymphoma but has not taken in over a year) and it was advised that he be seen. His PCP referred him to the ED after patient explained he has been having chest pain and SOB concerning for angina with an abnormal EKG in the office. Patient reports that he has been having intermittent left lower chest pain only when taking a deep breath for the last week. He has also been having SOB with exertion for the last month. He walks as much as he is able to with his lumbar back pain and found himself getting increasingly SOB when walking uphill. The SOB improves when he slows his pace down. His lower extremity edema started in his left leg about a month ago and has since progressed to his right leg as well. He notes that the edema improves when he elevates his legs. He has had persistent left leg pain from his hip to knee related to his lumbar disc protrusion that he uses ibuprofen and voltaren gel for. He was recently prescribed gabapentin for this but notes no other changes in his medications. He has not had any recent surgery or travel. He denies fevers, chills, cough, cold symptoms, abdominal pain, N/V/D, dysuria and hematochezia. He denies any recent sick contacts. He lives at home with his and two sons. Allergies Allergy/AdvReac Type Severity Reaction Status Date / Time No Known Allergies Allergy Verified 01/14/22 22:51 Home Medications Medication Instructions Recorded Confirmed Type cetirizine 10 mg tablet 10 mg PO DAILY 07/11/24 07/11/24 History diclofenac sodium 1 % topical gel 1 ea topical BID PRN Pain 07/11/24 07/11/24 History gabapentin 100 mg capsule 200 mg PO HS 07/11/24 07/11/24 History ibuprofen 800 mg tablet 800 mg PO TID 07/11/24 07/11/24 History lisinopril 40 mg tablet 40 mg PO DAILY 07/11/24 07/11/24 History rosuvastatin 10 mg tablet 10 mg PO HS 07/11/24 07/11/24 History Past Med/Surg History Problem List (Updated 07/11/24 @ 16:37 by SHELL Sanz) Hypertensive urgency Anemia Hypokalemia Bilateral lower extremity edema Chest pain SOB (shortness of breath) on exertion Lymphoma in remission Lumbar radiculopathy Hyperlipidemia Hypertension Medical History (Updated 07/11/24 @ 16:37 by SHELL Sanz) History of diverticulitis Positive PPD Acute diverticulitis Intraabdominal mass Lymphoma Surgical History No pertinent past surgical history Social History (Updated 07/11/24 @ 16:34 by SHELL Sanz) Smoking Status: Never smoker Hx Alcohol Use: No Hx Substance Use: No Preferred Language: Chinese marital status: Current Living Situation: Spouse Feels Safe at Home: Yes Assistive Devices: None Review of Systems Review of Systems: All systems reviewed & are unremarkable except as noted in HPI & below Physical Exam Physical Exam: General/Psych: WD/WN, sitting up in bed, NAD, conversing easily, euthymic affect Head: normocephalic, atraumatic Eyes: normal inspection, PERRL, conjunctivae pink, anicteric sclerae ENT: external ear and nose normal, oropharynx normal Neck: normal visual inspection, trachea midline, no thyromegaly Respiratory: normal respiratory effort, lungs clear to auscultation, no wheeze/rales/rhonchi, no accessory muscle use Cardiovascular: regular rate and rhythm, no murmur/rub/gallop, no JVD Extremities: no cyanosis or clubbing, normal peripheral pulses, 1+ pitting edema of right LE and 2+ pitting edema of left LE Abdomen/GI: normal bowel sounds, soft, nontender, no hepatosplenomegaly Neurologic/MSK: A+Ox3, motor strength 5/5, moves all extremities Skin: no rashes, normal color, warm and dry Results & Data Results & Data Vital Signs (Past 12 Hours) Vital Signs Temp Pulse Resp BP Pulse Ox O2 Del Method 07/11/24 14:48 56 L 14 173/97 H 96 Room Air 07/11/24 14:20 59 L 14 96 Room Air 07/11/24 13:59 96 Room Air 07/11/24 13:59 96 Room Air 07/11/24 13:14 64 20 167/114 H 98 Room Air 07/11/24 12:52 69 07/11/24 12:38 36.7 C 71 18 184/106 H 99 Room Air Laboratory Results Short CBC 07/11/24 Range/Units 13:14 WBC 4.09 L (4.8-10.8) K/ul Hgb 11.4 L (14.0-18.0) g/dl Hct 34.9 L (42.0-52.0) % Plt Count 164 (130-400) K/uL BMP 07/11/24 13:14 Sodium 143 Potassium 3.2 L Chloride 107 Carbon Dioxide 31 BUN 11 Creatinine 1.05 Glucose 90 Calcium 8.9 Liver Function 07/11/24 Range/Units 13:14 Total Bilirubin 1.1 H (0.2-1.0) mg/dl AST 12 L (13-39) U/L ALT 12 (7-52) U/L Alkaline Phosphatase 55 (34-104) U/L Albumin 3.9 (3.4-5.0) gm/dl Urine 07/11/24 Range/Units 15:00 Urine Color Yellow Urine Appearance Clear (Clear) Urine pH 6.5 (4.5-7.5) Ur Specific Merrill 1.014 (1.000-1.030) Urine Protein Negative (Negative) Urine Glucose (UA) Negative (Negative) I have independently reviewed and interpreted patient's admitting labs including CBC, CMP, PTT, PT/INR, mag, troponin, BNP, UA. Medications Administered Current Inpatient Medications Furosemide (Furosemide Inj 20 Mg/2 Ml Vial) 20 mg IV ONE ONE Stop: 07/11/24 16:27 Hydralazine HCl (Hydralazine Hcl 20 Mg/Ml Vial) 10 mg IV Q4 PRN PRN Reason: Hypertension Stop: 08/10/24 15:51 Potassium Chloride (Potassium Chloride Crtab 20 Meq Tabcr) 20 meq PO TODAY@1800 ONE Stop: 07/11/24 18:01 ECG Additional Comments: I have independently reviewed and interpreted patient's admitting EKG which re vealed: NSR at a rate of 67bpm with T wave inversion in II, III, aVF, V5, V6 Code Status & VTE Plan Code Status Full Code Supervising Physician Co-Signing Physician Notes 63-year-old male with PMH of HLD, HTN, degenerative disc disease, diffuse large B-cell lymphoma, bone marrow transplant status presents to the ED at referral of outpatient office for abnormal EKG iso chest pain. Patient with occasional chest pains, not necessarily exertional, worse w/ deep breath and comes as left lower chest tightness. Per patient, he is off of chemotherapy for about 3-4 years and off of diuretics for about 1 year. Patient reporting exertional dyspnea for more than 2 weeks. Also complains of LE swelling following that. He states he had BLE swelling started before he was started on gabapentin about a week ago [employer]. He denies fall/flu like illness/fever. He denies acute changes in bowel or bladder habit. Labs and imagings reviewed. CBC/renal function fairly WNL, potassium 3.2replete 60 mill equivalent, INR 1.0, magnesium 1.8, LFT WNL, troponin less than 2.3, CXR with no acute finding. EKG with T wave abnormality query lateral ischemia. Active problems: Chest pain ro ACS vs ro PE vs ro infection: pt w/ occasional chest pain, noted to have St elevation in V2 and TWI in lat and inf lead. trop neg. trend trop, get echo, tele monitor, npo midnight, cardio consult, CTA Chest. Likely CHF unspecified: 2019 ECHO w/ EF of 57% and nl ventricular fxn, BNP here nl, symptoms are PALOMINO and BLE swelling, will get echo, possibly start him on lasix, start w/ 20 mg iv lasix daily. Mild bicytopenia: iso ho B cell lymphome, deemed in remission, follows dr xie. HTN urgency: iv hydralazine prn, c/w home lisinopril, will be adding iv lasix 20 mg daily for now. Chr back pain: recent MRI from OP reviewed (may 2024) - Left extraforaminal disc protrusion at L3-L4 abutting the exiting nerve root. c/w home gabapentin, tylenol elise, oxy prn. avoid nsaids until more cardiac tests results are available. On exam: GENERAL: Alert and oriented x3. NAD, on RA. HEENT: No pallor, no icterus. Pupils equal, round and reactive to light. Oral mucosa moist. NECK: No JVD, no neck masses. HEART: S1 and S2 heard. Regular rate and rhythm. No murmur, no gallop. RESPIRATORY SYSTEM: Normal AP diameter. No accessory muscle use. No wheezing, no crackles. decreased bb breath sounds. ABDOMEN: Soft, bowel sounds present, nontender, no distention. CENTRAL NERVOUS SYSTEM: No facial droop. Speech is clear. Obeys simple commands. Moves extremities. EXTREMITIES: no erythema seen. BLE pitting edema 1-2+ (L> R) I have seen and examined the patient and have discussed the case with the provider above. I agree with the assessment and plan as stated. Time spent independently: 30 min.
--- NOTE | 2024-07-11 15:19 | Electrocardiogram Report ---
Test Reason : Blood Pressure : */* mmHG Vent. Rate : 67 BPM Atrial Rate : 67 BPM P-R Int : 170 ms QRS Dur : 126 ms QT Int : 410 ms P-R-T Axes : 67 -33 -19 degrees QTcB Int : 433 ms Normal sinus rhythm Left axis deviation Left ventricular hypertrophy with QRS widening ( R in aVL ) Cannot rule out Septal infarct , age undetermined T wave abnormality, consider lateral ischemia Abnormal ECG When compared with ECG of 14-Jan-2022 21:38, QRS duration has increased Minimal criteria for Septal infarct are now Present T wave inversion now evident in Inferior leads T wave inversion now evident in Anterolateral leads Confirmed by Orlin Metzger ([id number]) on 07/11/2024 3:19:21 PM Referred By: Marsha Mccoy Confirmed By: Orlin Metzger
[2024-07-11] MEDS: OPTIRAY 320 125ml IV ONE (16:07)
--- NOTE | 2024-07-11 16:10 | Ultrasound Report ---
Technique: Venous ultrasound evaluation was performed utilizing grayscale, color Doppler and wave form evaluation. Images were also obtained with and without compression Findings: The left common femoral, superficial femoral, popliteal, and visualized calf veins demonstrate normal anechoic lumens with full compressibility. Normal flow is seen on color Doppler images. Expected waveforms were produced with augmentation maneuvers Impression: No evidence of left leg deep venous thrombosis Electronically signed by Roger Busch 07-11-2024 4:09 PM
[2024-07-11 16:13] LABS: Appearance Urine Clear (Clear); Bilirubin Urine Negative (Negative); Blood Urine Negative (Negative); Color Urine Yellow; Glucose Urine UA Negative (Negative); Ketones Urine 1+ (Negative); Leukocyte Esterase Urine Negative (Negative); Nitrite Urine Negative (Negative); Protein Urine Negative (Negative); Specific Gravity Urine 1.014 (1.000-1.030); Urobilinogen Urine Negative (Negative); pH Urine 6.5 (4.5-7.5)
[2024-07-11] MEDS: lisinopril 40 MG TAB PO ONE (16:24)
[2024-07-11] MEDS: POTASSIUM CHLORIDE CRTAB 20 MEQ TABCR PO STA (16:25)
--- NOTE | 2024-07-11 16:36 | CT Scan Report ---
Technique: Axial computed tomography images were obtained of the chest after the administration of intravenous contrast according to the CT angiogram protocol Findings: There is no definite sign of pulmonary embolism. There is subsegmental atelectasis in both lower lobes. The lungs otherwise appear clear without infiltrate or mass. There is no pleural effusion or pneumothorax. There is no sign of pulmonary fibrosis or other diffuse interstitial process. No endobronchial lesion is seen There is no mediastinal, hilar, or axillary adenopathy. The thoracic aorta appears unremarkable with no sign of aneurysm or dissection. There is no pericardial effusion There is partially visualized left hydronephrosis. No fracture is seen. No focal osseous lesion is evident Impression: 1. No definite sign of pulmonary embolism 2. Mild bilateral lower lobe atelectasis 3. Partially visualized left hydronephrosis. CT of the abdomen and pelvis could be considered for further evaluation ACT 112: Positive. There are findings on this exam that require communication between the performing entity and the patient following Patient Test Result Information Act ([place] ACT 112) guidelines. Electronically signed by Roger Busch 07-11-2024 4:35 PM
[2024-07-11] MEDS: hydrALAZINE HCL 20 MG/ML VIAL IV PRN (17:25)
[2024-07-11] MEDS: POTASSIUM CHLORIDE CRTAB 20 MEQ TABCR PO ONE (17:25)
[2024-07-11] MEDS: FUROSEMIDE INJ 20 MG/2 ML VIAL IV ONE (17:27)
[2024-07-11] MEDS ORDERED: NITROGLYCERIN SL 0.4 MG/TAB TAB SL PRN (19:11)
[2024-07-11] MEDS ORDERED: POLYETHYLENE (MIRALAX) 17 GM PACK PO PRN (19:11)
--- OUTSIDE RECORDS SUMMARY | 2024-07-11 19:18 | External Medical Summary | Summary of Care ---
Author Name Unknown Organization [facility] Address [address] [place] [address] Phone [phone] Care Team Providers Care Cattle Dealer Name Role Phone Lazaro Coyle MD Primary Care Provider [phone] Reason for Visit * Reason Comments eRx-Medication Refill Encounter Details Date Type Department Care Team (Late st Contact Info) Description 06/10/2024 Refill [facility] [address] [place] [address] Lazaro Coyle MD [address] [place], [place] [phone] Allergies Active Allergy Reactions Criticality Noted Date Comments Amlodipine Tachycardia 07/12/2017 documented as of this encounter (statuses as of 06/10/2024) Medications Furosemide 40 MG Oral Tablet (Lasix)Indicatio ns:Edema of lower extremity,Histor y of diffuse large B-cell lymphoma TAKE ONE-HALF TABLET BY MOUTH DAILY NEEDED FOR SWELLING 15 Tablet 1 12/25/19 22 Active Diclofenac Sodium 1 % External Gel (Voltaren)Indica tions:Greater trochanteric bursitis of left hip Apply topically to affected area 2 times a day as needed for Pain, Mild. Apply 4 grams to left hip twice a day as needed - pain, . Apply to left hip twice a day as needed 150 g 2 01/15/20 23 Active Rosuvastatin Calcium 10 MG Oral Tablet (Crestor)Indicat ions:Hyperlipide inocencio with target LDL less than 100 TAKE 1 TABLET BY MOUTH DAILY IN THE EVENING 90 Tablet 12/19/19 24 Active hydroCHLOROthiaz abdoul 25 MG Oral Tablet (Hydrodiuril)Ind ications:HTN, goal below 140/90 Take 1 Tablet by mouth in the morning. 90 Tablet 3 03/29/19 25 Active Lisinopril 40 MG Oral TabletIndication s:HTN, goal below 140/90 TAKE 1 TABLET BY MOUTH EVERY DAY IN THE MORNING 90 Tablet 1 03/31/19 25 Active Cetirizine HCl 10 MG Oral Tablet (ZyrTEC) TAKE 1 TABLET BY MOUTH EVERY DAY IN THE MORNING 90 Tablet 2 04/04/19 25 Active Ibuprofen 800 MG Oral Tablet (Motrin) TAKE 1 TABLET IN THE MORNING AND 1 TABLET AT NOON AND 1 TABLET BEFORE BEDTIME. WITH FOOD FOR PAIN. 90 Tablet 3 06/11/19 25 Active Ibuprofen 800 MG Oral Tablet (Motrin) TAKE 1 TABLET IN THE MORNING AND 1 TABLET AT NOON AND 1 TABLET BEFORE BEDTIME. WITH FOOD FOR PAIN. 90 Tablet 3 02/16/20 24 025 Discontinued documented as of this encounter (statuses as of 06/10/2024) Active Problems Problem Noted Date Diagnosed Date Hyperlipidemia with target LDL less than 100 Diffuse large cell lymphoma in remission 023 History of diffuse large B-cell lymphoma 019 Bone marrow transplant status 03/11/2018 HTN, goal below 140/90 06/30/2017 Encounter for antineoplastic chemotherapy 2017 Diffuse large B-cell lymphom a of intra-abdominal lymph nodes 05/18/2017 Cancer Staging:Clinical stage from 06/10/2017:Stage III(Diffuse large B-cell lymphoma) - Signed by Mark Arredondo MD on 06/10/2017 documented as of this encounter (statuses as of 06/10/2024) Resolved Problems Problem Noted Date Diagnosed Date Resolved Date Antineoplastic chemotherapy induced pancytopenia 02/17/2018 12/08/2021 Food insecurity 11/02/2017 02/03/2024 Overview: Per [facility] Protocol Chemotherapy-induced neuropathy 09/13/2017 12/08/2021 documented as of this encounter (statuses as of 06/10/2024) Immunizations Name Administration Dates Next Due COVID-19 mRNA, LNP-s, No Pre serve, 2-Dose Series (Pfizer) 07/10/2020,06/19/2020 DTaP Dipth/Tet/Acell Pertussis (Infanrix), Peds 10/05/2019,05/18/2019,03/06/2019 HIB PRP-T, 4 Dose, PF, IM (H iberix, ActHib) 10/05/2019,05/18/2019,03/06/2019 Hepatitis B, 20+ yrs 10/05/2019,05/18/2019,03/06 IPV - Polio Virus Vaccine (Inact) 03/28/2020,,03/06/2019 MMR - Measles/Mumps/Rubella Vaccine 03/28/2020 Meningococcal MCV4O Conjugat e Vaccine (Menveo) 05/18/2019,03/06/2019 Pneumococcal Conjugate Vacc, 13 Valent (Prevnar) 03/06/2019,11/04/2018,09/28/2018 Pneumococcal Polysaccharide PPV23 (Pneumovax) 10/05/2019 Seasonal Influenza, PF, 6 M & above, IM , (FluLaval or Fluzone) 12/11/2022,01/28/2022,12/27/2020,02/12,02/13/2019 Seasonal Influenza, Trivalen t, (IIV3), PF, (Fluzone) 01/07/2024 Zoster Vaccine Recombinant (Shingrix) 11/04/2018 ,09/28/2018 documented as of this encounter Social History Tobacco Use Types Packs/Day Years Used Date Smoking Tobacco: Never Passive Smoke Exposure: Never Smokeless Tobacco: Never Alcohol Use Standard Drinks/Week Comments No 0 (1 standard drink = 0.6 oz pur e alcohol) AUDIT-C Answer Date Recorded Frequency of Alcohol Consumption Never 03/04/2018 Average Number of Drinks Not on file 018 Frequency of Binge Drinking Not on file 02/19 PHQ-2 Answer Date Recorded PHQ Adult Total Score 0 07/02/2023 Hunger Vital Sign Answer Date Recorded Within the past 12 months, y ou worried that your food would run out before you got the money to buy more. Never true 01/07/20 24 Within the past 12 months, t he food you bought just didn't last and you didn't have money to get more. Never true 01/07/2024 Childcare Answer Date Recorded Do you feel overwhelmed with taking care of a child, family member or friend? No 01/07/2024 Does your family need help f inding childcare? (Household - for ages 0-17 years) Not on file 01/07/2024 Clothing Answer Date Recorded Have you been unable to get clothing when it was really needed? No 01/07/2024 Is your family able to get c lothes or diapers when needed? (Household - for ages 0-17 years) Not on file 01/07/2024 Personal Safety Answer Date Recorded Do you feel unsafe or have concerns for your saf ety? No 01/07/2024 Do you have concerns for you r family's safety? (Household - for ages 0-17 years) Not on file 01/07/2024 Utilities Answer Date Recorded Do you have trouble paying y our heating, water, or electric bill? No 01/07/2024 Is your family able to pay t he heat, water, or electric bill? (Household - for ages 0-17 years) Not on file 01/07/2024 Does your family have access to good internet? (Household - for ages 0-17 years) Not on file 01/07/2024 Employment Status Answer Date Recorded Are you unemployed or without regular income? No 01/07/2024 Does the household have a re gular source of income? (Household - for ages 0-17 years) Not on file 01/07/2024 Social Connections Answer Date Recorded How often do you feel lonely or isolated from th ose around you? Never 01/07/2024 Financial Resource Strain Answer Date R ecorded Do you have any trouble payi ng for your medications, or do you think you might in the future? No 01/07/2024 Does your family have troubl e paying for medicine? (Household - for ages 0-17 years) Not on file 01/07/2024 Transportation Needs Answer Date Record ed Do you have trouble getting a ride to medical visits or work? (Adult - for ages 18 years and over) Not on file 01/07/2024 Does your family have a hard time getting a ride to doctors visits? (Household - for ages 0-17 years) Not on file 01/07/2024 Has lack of transportation k ept you from medical appointments, meetings, work, or from getting things needed for daily living? Check all that apply. No 01/07/2024 Do you (or your family) have trouble finding or paying for a ride (transportation)? (Household - for ages 0-17 years) Not on file 01/07/2024 Housing Stability Answer Date Recorded Do you currently live in a s helter or have no steady place to sleep at night? No 01/07/2024 Do you think you are at risk of becoming homeless? (Adult - for ages 18 years and over) Not on file 01/07/2024 Does your family worry about paying for your home or becoming homeless? (Household - for ages 0-17 years) Not on file 1 Are you homeless or worried that you might be in the future? No 01/07/2024 Are you (or your family) aleah eless or worried that you might be in the future? (Household - for ages 0-17 years) Not on file Food Insecurity Answer Date Recorded Do you need food for this week? No 01/07/2024 Are you able to get enough f ood for your family? (Household - for ages 0-17 years) Not on file 01/07/2024 Does your family need food t his week? (Household - for ages 0-17 years) Not on file 01/07/2024 Do you always have enough fo od for your family? (Household - for ages 0-17 years) Not on file 01/07/2024 Food Insecurity Answer Date Recorded Within the past 12 months, y ou worried that your food would run out before you got the money to buy more. Never true 01/07/20 24 Within the past 12 months, t he food you bought just didn't last and you didn't have money to get more. Never true 01/07/2024 Do you need food for this week? No 01/07/2024 Sex and Gender Information Value Date Recorded Sex Assigned at Male 03/29/2024 7:30 AM EST Legal Sex Male 4:24 PM EDT Gender Identity Male 03/29/2024 7:30 AM EST Sexual Orientation Straight 03/29/2024 7: 30 AM EST documented as of this encounter Functional Status * Are you deaf or do you have serious difficulty hearing? Answer Date of Assessment Author No 02/01/2018 11:40 AM Marbella Georges RN * Are you blind or do you have serious difficulty seeing, even when wearing glasses? Answer Date of Assessment Author No 02/01/2018 11:40 AM Marbella Georges RN * Do you have serious difficulty walking or climbing stairs? (5 years old or older) Answer Date of Assessment Author No 02/01/2018 11:40 AM Marbella Georges RN * Do you have difficulty dressing or bathing? (5 years old or older) Answer Date of Assessment Author No 02/01/2018 11:40 AM Marbella Georges RN * Because of a physical, mental, or emotional condition, do you have difficulty doing errands alone such as visiting a doctor’s office or shopping? (15 years old or older) Answer Date of Assessment Author No 02/01/2018 11:40 AM Marbella Georges RN documented as of this encounter Mental Status * Because of a physical, mental, or emotional condition, do you have serious difficulty concentrating, remembering, or making decisions? (5 years old or older) Answer Entry Date Author No 02/01/2018 11:40 AM Marbella Georges RN documented in this encounter Miscellaneous Notes * Telephone Encounter - Tonny Salcedo RPh - 06/10/2024 1:03 PM EDT Signed Prescriptions: Disp Refills Ibuprofen 800 MG Oral Tablet (Motrin) 90 Tab*3 Sig: TAKE 1 TABLET IN THE MORNING AND 1 TABLET AT NOON AND 1 TABLET BEFORE BEDTIME. WITH FOOD FOR PAIN.Authorizing Provider: LAZARO COYLE User: TONNY SALCEDO documented in this encounter Plan of Treatment Upcoming Encounters Date Type Department Care Team (Latest Contact Info) Description 07/07/2024 10:00 AM EDT [facility] [address] [place] [phone] Lazaro Coyle MD [address] [place] [address] 08/02/2024 2:00 PM EDT [facility] [address] [place] [address] Lazaro Coyle MD [address] [place] [address] 09/07/2024 11:45 AM EDT Hospital Encounter ENDO [facility], Endoscopy Room [facility] [address] [facility] [address] Rosalee Edmonds MD [address] [place] [address] 09/07/2024 11:45 AM EDT - 09/07/2024 12:15 PM EDT Surgery ENDO [facility], Endoscopy Room [facility] [address] [place] [address] Rosalee Edmonds MD [address] [place] [address] COLONOSCOPY FLEXIBLE PROXIMAL DIAGNOSTIC 05/03/2025 3:00 PM EST Office Visit Hematology/Oncology [employer] [address] [place] [phone] Mark Arredondo MD [address] [facility] [place] [address] Scheduled Procedures Name Priority Associated Diagnoses Date/Ti me COLONOSCOPY FLEXIBLE PROXIMAL DIAGNOSTIC History of colon polyps Special screening for malignant neoplasms, colon 09/07/2024 11:45 AM EDT Health Maintenance Due Date Last Done Comments Cologuard 07/31/2007 Fecal Occult Blood Test 07/31/2007 Sigmoidoscopy 07/31/2007 Colonoscopy 06/17/2022 06/17/2017, 06/17/2017 Colorectal Cancer Screening 06/17/2022 *NEPHROLOGY REFERRAL DUE TO RESISTANT HTN 04/10/2024 Depression Screening 07/01/2024 07/02/2023 Pneumococcal Vaccine: 50+ Years (3 of 3 - PPSV23, PCV20 or PCV21) 10/04/2024 10/05/2019, 03/06/2019, 11/04/2018, Additional history exists Hepatitis C Screening 01/06/2025 Postpo jovany from 1980 (Patient Declined After Education) GFR 05/03/2025 05/03/2024, 03/22, 01/07/2024, Additional history exists Albumin/Creatinine Ratio 04/07/2027 04/07/2024 Diabetes Screening 05/03/2027 05/03/2024, 0 04/07/2024, 01/07/2024, Additional history exists Lipid Panel 01/06/2029 01/07/2024, 10/20, 06/16/2022, Additional history exists DTap/Tdap Vaccines (4 - Tdap) 10/04/2029 10/05/2019, 05/18/2019, 03/06/2019 RETIRED - COLONOSCOPY-EVERY 5 YRS AGES 18-100 Discontinued 06/17/2017, 06/17/2017 Zoster Vaccines Completed 11/04/2018, 09/28/2018 MENINGOCOCCAL (MENACTRA/MENVEO) Aged Out 05/18/2019, 05/18/2019, 03/06/2019, Additional history exists No longer eligible based on patient's age to complete this topic Hepatitis B Vaccine Completed 10/05/2019, 05/18/2019, 03/06/2019 COVID-19 Vaccine Discontinued 07/10/2020, 06/19/2020 Influenza Vaccine (FLU shot) Completed 01/07/2024, 12/11/2022, 01/28/2022, Additional history exists HPV (Gardasil) Vaccine Aged Out No lo nger eligible based on patient's age to complete this topic Meningitis B Vaccine (Bexsero/Trumemba) Aged Out No longer eligible based on patient's age to complete this topic documented as of this encounter Medical Devices Implanted Type Area Law Professor Device Identifier Shelf Expiration Date Model / Serial / Lot Port Power Mri W/8fr Cath - [id number] Implanted:Qty : 1 on 05/31/2017 by Nir Bailey MD at OR [facility] Right: Internal Jugular CR BARD : PERIPHERAL VASCULAR 01/19/2019 [id number] / / [id number] documented as of this encounter Advance Directives * Full Code (Latest Code Status on File) Date Activated Date Inactivated Comments 02/01/2018 1:20 PM 02/20/2018 5:00 PM This order reflects the patients wishes and were consensually agreed upon. Question Answer Comments Discussion of Advance Directives occurred with: Patient Does the patient have a Living Will? No Does the patient have Health Care Power of Attor lissette? No Care Teams Cattle Dealer Relationship Specialty Start Date End Date Lazaro Colye MD [address] [place] [address] PCP - General Family Medicine 03/03/24 documented as of this encounter
--- OUTSIDE RECORDS SUMMARY | 2024-07-11 19:18 | External Medical Summary ---
Author Name Unknown Address Unknown Organization K09:[facility] [place] [address] Laboratory Report Ordering Provider Test Date Status DESIREE PRAKASH 05/03/2024 15:05:03 Final Observation Date Value Abnormality Reference (Units ) Status SYNC LEUKOCYTES IN BLOOD BY AUTOMATED COUNT 05/03/2024 15:05:03 6.25 4.00-10.80 (K/uL) Final Segs 05/03/2024 15:05:03 59.6 40.0-75.0 (%) Final Lymphs % 05/03/2024 15:05:03 32.2 18.0-42.0 (%) Final Monos 05/03/2024 15:05:03 7.7 1.0-11.0 (%) Final Eosinophils 05/03/2024 15:05:03 0.5 0.0-6.0 (%) Final Basos 05/03/2024 15:05:03 0.0 0.0-2.0 (%) Final Absolute Segs 05/03/2024 15:05:03 3.73 1.80-7.70 (K/uL) Final Lymphs, absolute 05/03/2024 15:05:03 2.01 1.00-4.80 (K/ul) Final Monos, Abs 05/03/2024 15:05:03 0.48 0.00-1.10 (K/uL) Final Eos, Abs 05/03/2024 15:05:03 0.03 0.00-0.70 (K/uL) Final Basos, Abs 05/03/2024 15:05:03 0.00 0.00-0.20 (K/uL) Final Performing Location [facility] [place] [address]
--- OUTSIDE RECORDS SUMMARY | 2024-07-11 19:18 | External Medical Summary | Summary of Care ---
Author Name Unknown Organization [facility] Address [address] [place] [address] Phone [phone] Care Team Providers Care Psychiatric Orderly Name Role Phone Festus Coyle MD Primary Care Provider [phone] Reason for Visit * Reason Onset Date Comments Appointment 06/05/2024 Encounter Details Date Type Department Care Team (Late st Contact Info) Description 06/05/2024 Telephone [address] [place] [address] Cheryl Mccall, RT (R) Appointment Allergies Active Allergy Reactions Criticality Noted Date Comments Amlodipine Tachycardia 07/12/2017 documented as of this encounter (statuses as of 06/05/2024) Medications Furosemide 40 MG Oral Tablet (Lasix)Indication s:Edema of lower extremity,History of diffuse large B-cell lymphoma TAKE ONE-HALF TABLET BY MOUTH DAILY NEEDED FOR SWELLING 15 Tablet 1 2 Active Diclofenac Sodium 1 % External Gel (Voltaren)Indicat ions:Greater trochanteric bursitis of left hip Apply topically to affected area 2 times a day as needed for Pain, Mild. Apply 4 grams to left hip twice a day as needed - pain, . Apply to left hip twice a day as needed 150 g 2 3 Active Rosuvastatin Calcium 10 MG Oral Tablet (Crestor)Indicati ons:Hyperlipidemi a with target LDL less than 100 TAKE 1 TABLET BY MOUTH DAILY IN THE EVENING 90 Tablet 09/29/202 4 Active Ibuprofen 800 MG Oral Tablet (Motrin) TAKE 1 TABLET IN THE MORNING AND 1 TABLET AT NOON AND 1 TABLET BEFORE BEDTIME. WITH FOOD FOR PAIN. 90 Tablet 3 4 Active hydroCHLOROthiazi de 25 MG Oral Tablet (Hydrodiuril)Desire cations:HTN, goal below 140/90 Take 1 Tablet by mouth in the morning. 90 Tablet 3 5 Active Lisinopril 40 MG Oral TabletIndications :HTN, goal below 140/90 TAKE 1 TABLET BY MOUTH EVERY DAY IN THE MORNING 90 Tablet 1 5 Active Cetirizine HCl 10 MG Oral Tablet (ZyrTEC) TAKE 1 TABLET BY MOUTH EVERY DAY IN THE MORNING 90 Tablet 2 5 Active documented as of this encounter (statuses as of 06/05/2024) Active Problems Problem Noted Date Diagnosed Date [...] as of this encounter (statuses as of 06/05/2024) Resolved Problems Problem Noted Date Diagnosed Date Resolved Date Antineoplastic chemotherapy induced pancytopenia 02/17/2018 12/08/2021 Food insecurity 11/02/2017 02/03/2024 Overview: Per [facility] Protocol Chemotherapy-induced neuropathy 09/13/2017 12/08/2021 documented as of this encounter (statuses as of 06/05/2024) Immunizations Name Administration Dates Next Due COVID-19 mRNA, LNP-s, No Pre serve, 2-Dose Series ([employer]) 07/10/2020,06/19/2020 DTaP Dipth/Tet/Acell Pertussis (Infanrix), Peds 10/05/2019,05/18/2019,03/06/2019 [...] 01/07/2024 Does the household have a re lar source of income? (Household - for ages [...] of Assessment Author No 02/01/2018 11:40 AM EST Marbella Pinzon, ENEIDA * Are you blind or do you [...] encounter Miscellaneous Notes * Telephone Encounter - Cheryl Mccall RT (R) - 06/05/2024 9:16 AM EDT Name: Jaime Giordano Do you have any of the following: Pacemaker, stents, heart valves, aneurysm clips? No Have you ever worked with metal or have you ever gotten metal in your eyes? No Have you had a colonoscopy in the last 30 days? No On dialysis? No Do you have any dermals or body piercing's? No or ? Do you wear an insulin pump or diabetic monitor? no RT Dakota Aguilar) documented in this encounter Plan of Treatment Upcoming Encounters Date Type Department Care Team (Latest Contact Info) Description 06/07/2024 11:00 AM EDT Imaging Radiology [address] [place] [phone] 07/07/2024 10:00 AM EDT Office Visit [facility], [address] [place], [place] [address] Festus Coyle MD [address] [place] [address] 07/28/2024 9:00 AM EDT Office Visit [facility] [place] [address] [place] [address] Festus Coyle MD [address] [place] [address] 09/07/2024 11:45 AM EDT Hospital Encounter ENDO [facility], Endoscopy Room [facility] [address] [place], [place] [phone] Rosalee Edmonds MD [address] [place] [id number] 09/07/2024 11:45 AM EDT - 09/07/2024 12:15 PM EDT Surgery ENDO [facility], Endoscopy Room [facility] [address] [facility] [place] [phone] Rosalee Edmonds MD [address] [place] [address] COLONOSCOPY FLEXIBLE PROXIMAL DIAGNOSTIC 05/03/2025 3:00 PM EST Office Visit Hematology/Oncology [facility] [place] [address] [place], [place] [phone] Mark Arredondo MD [address] [place] [address] Scheduled Procedures Name Priority Associated Diagnoses Date/Ti [...] this encounter Medical Devices Implanted Type Area Master Cosmetologist Device Identifier Shelf Expiration Date Model / Serial / Lot Port Power Mri W/8fr Cath - [id number] Implanted:Qty : 1 on 05/31/2017 by Nir Bailey MD at OR [facility] Right: Internal Jugular CR BARD : PERIPHERAL VASCULAR 01/19/2019 [id number] / / [id number] documented as of this encounter Advance Directives [...] Power of Attor lissette? No Care Teams Psychiatric Orderly Relationship Specialty Start Date End Date Festus Coyle MD [address] [place] [address] PCP - General Family Medicine 03/03/24 documented as of this encounter
--- OUTSIDE RECORDS SUMMARY | 2024-07-11 19:18 | External Medical Summary | Summary of Care ---
Author Name Unknown Organization [facility] Address [address] [place] [address] Phone [phone] Care Team Providers Care General Merchandise Salesperson Name Role Phone Festus Coyle MD Primary Care Provider [phone] Reason for Referral * Precert (Within 10 days (routine)) - Pending Review Specialty Diagnoses / Procedures Referred By Contellie t Referred To Contact Radiology Diagnoses Left leg pain Procedures MRI L SPINE W CONTRAST Mary Garcia CRNP [address] [place] [address] Phone: tel: fax: Referral ID Status Reason Start Date Expiration Date V isits Requested Visits Authorized [id number] Pending Review 05/10/2024 999 999 Reason for Visit * Reason Comments Follow Up 1y Encounter Details Date Type Department Care Team (Late st Contact Info) Description 05/03/2024 2:30 PM EST Office Visit [facility]ematology/On[facility] [place] [address] [facility] [phone] Mary Garcia CRNP [address] [place] [id number] Left leg pain*; Diffuse large B-cell lymphoma of intra-abdominal lymph nodes (HCC) Allergies Active Allergy Reactions Criticality Noted Date Comments Amlodipine Tachycardia 07/12/2017 documented as of this encounter (statuses as of 05/04/2024) Medications Furosemide 40 MG Oral Tablet (Lasix)Indication [...] MOUTH DAILY IN THE EVENING 90 Tablet 4 Active Ibuprofen 800 MG Oral Tablet [...] as of this encounter (statuses as of 05/04/2024) Active Problems Problem Noted Date Diagnosed Date [...] as of this encounter (statuses as of 05/04/2024) Resolved Problems Problem Noted Date Diagnosed Date Resolved Date Antineoplastic chemotherapy induced pancytopenia 02/17/2018 12/08/2021 Food insecurity 11/02/2017 02/03/2024 Overview: Per [facility] Protocol Chemotherapy-induced neuropathy 09/13/2017 12/08/2021 documented as of this encounter (statuses as of 05/04/2024) Immunizations Name Administration Dates Next Due COVID-19 [...] AM EST documented as of this encounter Last Filed Vital Signs Vital Sign Reading Time Taken Comments Blood Pressure 144/86 05/03/2024 2:28 PM EST Pulse 81 05/03/2024 2:28 PM EST Temperature 36.5 °C (97.7 °F) 05/03/2024 2:28 PM ES T Respiratory Rate 16 05/03/2024 2:28 PM EST Oxygen Saturation 97% 05/03/2024 2:28 PM EST Inhaled Oxygen Concentration - - Weight 89.3 kg (196 lb 12.8 oz) 05/03/2024 2:28 PM EST Height - - Body Mass Index 29.27 03/29/2024 7:27 AM EST documented in this encounter Functional Status * Are you [...] Marbella Georges RN documented in this encounter Progress Notes * Mary Garcia CRNP - 05/03/2024 2:30 PM EST Hematology/Oncology Outpatient Clinic note [facility] Name: Jaime Giordano Date: 05/03/2024 CHIEF COMPLAINT: Jaime Giordano is a 63 year old male patient here today for f/u visit. DIAGNOSIS: Diffuse large B-cell lymphoma, germinal center subtype (left inguinal region, intra-abdominal lymphadenopathy, right axillary lymphadenopathy) - BCL 6 rearrangement--> detected - MYC rearrangement-> detected This suggest evidence of double hit lymphoma. -MYC amplification--> not detected -t (14;18) translocation--> not detected CURRENT TREATMENT: Surveillance PRIOR TREATMENT: D+41 s/p BEAM/PBSCT for NHL (double hit in near CR1)- Day 0- 02/07/18. EPOCH-R with Neulasta support- started 06/21/17 09/13/2017--> has come the clinic for 5th cycle of chemotherapy with EPOCH-R (decided to hold chemotherapy because of active MRSA infection in the left axilla, he was treated with Bactrim antibiotic) 09/13/2017--> he has neuropathy symptoms involving the upper extremities involving the both hands, causing some trouble doing routine activities including buttoning and buttoning. I would like to discontinue vincristine as a part of the chemotherapy protocol. He underwent BEAM and then had PBSCT on 02/07/18. DIAGNOSTIC WORKUP: Earlier in January, he complained of the abdominal pain, [facility], -CT scan of the abdomen pelvis done with intravenous contrast on 02/12/2017--> enlarged liver measuring up to 19 cm, no focal liver lesion noted no biliary ductal dilatation noted, echo diverticulitis involving the right-sided colon noted. Numerous enlarged an abnormal appearing mesenteric lymphnodes, left iliac chain lymph node, left inguinal regional lymph node noted. Some lymph nodes showsevidence of necrosis and calcification. (3.4 x 2 cm central mesenteric lymph node, 4.4 x 2.6 cm left upper quadrant lymph node, left the external iliac lymph node measuring 4.2 x 3.8 cm) no splenomegaly no bone lesions noted, enlarged prostate noted. He was treated with the antibiotic treatment for the diverticulitis with improvement of the abdominal pain. Seen by Dr. Bailey recently, underwent excisional biopsy of the left inguinal lymph node on 04/12/2017, final pathology--> diffuse large B-cell lymphoma, germinal center subtype, proliferation rate is about 50%. -BCL 6 rearrangement--> detected - MYC rearrangement-> detected This suggest evidence of double hit lymphoma. -MYC amplification--> not detected -t (14;18) translocation--> not detected -Bone marrow examination --> No lymphoma involvement (05/25/2017) PET-CT scan done on 05/26/2017 at [facility] showed metabolically active right axillary lymphadenopathy measuring 3 cm, no hilar or mediastinal lymphadenopathy noted, metabolic activeomental and mesenteric melissa masses, celiac axis lymph node measuring 2.4 cm, multiple intra-abdominal lymph nodes noted, right lower quadrant lymphadenopathy measuring 5.6 cm, left pelvic sidewall lymphadenopathy measuring 2.6 cm. No definite inguinal lymphadenopathy. No bone lesions. HIV negative -PET-CT scan done after 4 cycles of chemotherapy (09/08/2017)--> single right suprahilar lymph node measuring 1.3 x 1.1 cm with SUV of 3.6 (it was 1.2 x 0.8 cm earlier with SUV of 2.6), decrease inthe right axillary lymph node now measuring 3.1 x 1.5 cm which is not metabolic active, (it was 5 x2.8 cm earlier). No FDG avid the mediastinal hilar lymphadenopathy. Left lower lobe 1.4 cm nodular focus which is not metabolic active, no pleural pericardial effusion noted, left axillary cutaneous focus appears to be infectious injury (on physical examination he has signs of infection , MRSA infection) interval decrease in size of retroperitoneal, mesenteric, pelvic and left inguinal lymph nodes which are not metabolic active, dominant mesenteric lymph node measuring 3 x 1.5 cm (it was 4.6 x 2.9 cm earlier close. Diffuse bone marrow uptake related to the Neulasta injection. HISTORY OF PRESENT ILLNESS: Jaime Giordano is a 63 year old male with a history as outlined above. Currently here for f/u visit today. Last visit with Dr. Arredondo 08/25/22 He denies fever, chills or night sweats. No reported weight loss. No headaches or dizziness. Denieschest pain. Mild shortness of breath with exertion. Denies abdominal pain,cramping,constipation or diarrhea. No urinary issues. Has had pain in left leg and lower lower back for "awhile". Pain in left leg is increasing. Pain rated 8/10. Pain radiates down left leg and ends in the left knee. Burning sensation in left knee area. Rates pain 8/10. Using Voltaren and Ibuprofen. Pain is also noted in left lower back. Left leg has been giving out "a lot over last week" No urinary incontinence. Past Medical History: Diagnosis Date Diffuse large B cell lymphoma (HCC) Hypertension No known health problems Past Surgical History: Procedure Laterality Date BX LYMPH NODE-SUPERFIC Left 04/12/2017 BIOPSY LYMPH NODE OPEN SUPERFICIAL performed by Nir Bailey MD at OR [facility] COLONOSCOPY COLONOSCOPY, DIAGNOSTIC (RECTUM) 06/17/2017 adenomatous polyp, diverticulosis, repeat 5 yrs/COLONOSCOPY FLEXIBLE PROXIMAL DIAGNOSTIC performed by Hilda Luevano DO at ENDOSCOPY [facility] INSER TUNN ACC DEV;5 YRS/OLDER 05/31/2017 INSERT TUNNELED CENTRAL VENOUS ACCESS WITH SUBQ PORT performed by Nir Bailey MD at OR [facility] PROCEDURE - GENERAL Left 04/26/2023 removal of chemo port from the left chest. REMOVAL OF TONSILS, UNDER AGE 14 Social History Socioeconomic History Marital status: Spouse name: Not on file Number of children: Not on file Years of education: Not on file Highest education level: Not on file Occupational History Not on file Tobacco Use Smoking status: Never Passive exposure: Never Smokeless tobacco: Never Vaping Use Vaping status: Not on file Substance and Sexual Activity Alcohol use: No Drug use: No Sexual activity: Never Other Topics Concern Not on file Social History Narrative Not on file Social Needs Financial Resource Strain: Low Risk (01/07/2024) Financial Resource Strain Do you have any trouble paying for your medications, or do you think you might in the future? (Adult - for ages 18 years and over): No Does your family have trouble paying for medicine? (Household - for ages 0-17 years): Not on file Food Insecurity: Not on file (01/07/2024) Transportation Needs: No Transportation Needs (01/07/2024) Transportation Needs Do you have trouble getting a ride to medical visits or work? (Adult - for ages 18 years and over):Not on file Does your family have a hard time getting a ride to doctors’ visits? (Household - for ages 0-17 years): Not on file Has lack of transportation kept you from medical appointments, meetings, work, or from getting things needed for daily living? Check all that apply. (Adult - for ages 18 years and over): No Do you (or your family) have trouble finding or paying for a ride (transportation)? (Household - for ages 0-17 years): Not on file Social Connections: Socially Integrated (01/07/2024) Social Connections How often do you feel lonely or isolated from those around you? (Adult - for ages 18 years and over): Never Housing Stability: Low Risk (01/07/2024) Housing Stability Do you currently live in a mcfp or have no steady place to sleep at night? (Adult - for ages 18 years and over): No Do you think you are at risk of becoming homeless? (Adult - for ages 18 years and over): Not on file Does your family worry about paying for your home or becoming homeless? (Household - for ages 0-17 years): Not on file Are you homeless or worried that you might be in the future? (Adult - for ages 18 years and over): No Are you (or your family) homeless or worried that you might be in the future? (Household - for ages0-17 years): Not on file Review of patient's allergies indicates: Allergen Reactions Amlodipine Tachycardia Current Outpatient Medications Medication Sig Dispense Refill Furosemide 40 MG Oral Tablet (Lasix) TAKE ONE-HALF TABLET BY MOUTH DAILY NEEDED FOR SWELLING 15 Tablet 1 Diclofenac Sodium 1 % External Gel (Voltaren) Apply topically to affected area 2 times a day as needed for Pain, Mild. Apply 4 grams to left hip twice a day as needed - pain, . Apply to left hip twice a day as needed 150 g 2 Rosuvastatin Calcium 10 MG Oral Tablet (Crestor) TAKE 1 TABLET BY MOUTH DAILY IN THE EVENING 90 Tablet 0 Ibuprofen 800 MG Oral Tablet (Motrin) TAKE 1 TABLET IN THE MORNING AND 1 TABLET AT NOON AND 1 TABLET BEFORE BEDTIME. WITH FOOD FOR PAIN. 90 Tablet 3 hydroCHLOROthiazide 25 MG Oral Tablet (Hydrodiuril) Take 1 Tablet by mouth in the morning. 90 Tablet 3 Lisinopril 40 MG Oral Tablet TAKE 1 TABLET BY MOUTH EVERY DAY IN THE MORNING 90 Tablet 1 Cetirizine HCl 10 MG Oral Tablet (ZyrTEC) TAKE 1 TABLET BY MOUTH EVERY DAY IN THE MORNING 90 Tablet2 No current facility-administered medications for this visit. REVIEW OF SYSTEMS: Review of Systems Constitutional: Positive for fatigue. Negative for appetite change, chills and fever. HENT: Negative for mouth sores, sore throat and trouble swallowing. Respiratory: Positive for shortness of breath. Negative for chest tightness and cough. Short of breath with going up hills--early [place] Cardiovascular: Negative for chest pain, leg swelling and palpitations. Gastrointestinal: Negative for abdominal pain, blood in stool, constipation, diarrhea, nausea and vomiting. Genitourinary: Negative for difficulty urinating. Musculoskeletal: Positive for back pain and gait problem. Skin: Negative. Neurological: Positive for gait problem. Negative for dizziness, headaches and light-headedness. Rarely headache on/ off Persistent left leg pain since 11/11. Using Voltaren gel and Ibuprofen Pain from left lower back that radiates into left leg Pain increasing Left leg giving out on him No N/T in left food Burning sensation in left knee Rates pain 10/29 Hematological: Does not bruise/bleed easily. Psychiatric/Behavioral: Negative for sleep disturbance. OBJECTIVE: Filed Vitals: 05/03/24 1428 BP: 144/86 Pulse: 81 Resp: 16 Temp: 36.5 °C (97.7 °F) TempSrc: Tympanic SpO2: 97% Weight: 89.3 kg (196 lb 12.8 oz) Wt Readings from Last 5 Encounters: 05/03/24 89.3 kg (196 lb 12.8 oz) 03/29/24 90.9 kg (200 lb 4.8 oz) 01/07/24 91 kg (200 lb 9.6 oz) 07/02/23 87 kg (191 lb 12.8 oz) 04/23/23 86.8 kg (191 lb 6.4 oz) PHYSICAL EXAM: ECOG: Performance Status 0 = 100% Normal Activity General Appearance: Normal - Healthy appearing patient in no acute distress HEENT: Normal - No oral or pharyngeal masses, ulceration or thrush noted, no sinus tenderness Lymph Nodes: Normal - No palpable lymph nodes in the neck or supraclavicular areas Lungs/Thorax: Normal - Clear to auscultation Heart: Normal - Regular rate and rhythm, normal S1, S2, no appreciable murmurs, rubs, gallops Pulses/Extremities: Normal - 2+ throughout and symmetrical, no edema Abdomen: Normal - Soft, nontender, bowel sounds present, no appreciable hepatosplenomegaly, no palpable masses Musculoskeletal: Normal - No pain on palpation over bony prominence, no joint or bony deformity Neurologic: Normal - Grossly intact Strength LE 5+ Reflexes equal bilateral LABS: pending IMAGING: MRI L Spine ordered IMPRESSION: Diffuse large B-dyllan lymphoma Left lower back pain with radiation of pain into left leg -lab today -MRI lumbar spine in near future. -RTC 1 year Arnulfo GOFF documented in this encounter Nursing Notes * Bella Yeager LPN - 05/03/2024 2:29 PM EST Patient identifed by name and birthdate Do you have any concerns about pain management for today's visit? Yes. Patient instructed to discuss pain concerns with provider during the visit today Living Will or Advance Directive for Health Care as noted on the problem list. [facility] is a way you can talk to your provider on line through e-mail. Would you like to sign up? I can activate it for you? ALREADY ACTIVE Filed Vitals: 05/03/24 1428 BP: 144/86 Pulse: 81 Resp: 16 Temp: 36.5 °C (97.7 °F) TempSrc: Tympanic SpO2: 97% Weight: 89.3 kg (196 lb 12.8 oz) Patient was instructed to not get up on the exam table/exam chair until directed and assisted by their provider; patient is to remain seated in the chair/ wheelchair/ exam table/ exam chair for fall prevention and safety reasons. Patient is aware to have assistance to step down off exam table/exam chair with personnel. Patient voiced full comprehension of instructions. documented in this encounter Plan of Treatment Upcoming Encounters Date Type Department Care Team (Latest Contact Info) Description 05/17/2024 3:15 PM EST Imaging Radiology [address] [place] [phone] 07/07/2024 10:20 AM EDT [facility] [address] [place] [phone] Festus Coyle MD [address] [place] [address] 07/28/2024 9:00 AM EDT [facility] [address] [place] [phone] Festus Coyle [facility] [address] [facility] [place] [address] 09/07/2024 11:45 AM EDT Hospital Encounter ENDO [facility], Endoscopy Room [facility] [address] [place] [phone] Rosalee Edmonds MD [address] [place] [address] [place] [id number] 09/07/2024 11:45 AM EDT - 09/07/2024 12:15 PM EDT Surgery ENDO [facility], Endoscopy Room [facility] [address] [facility] [place] [phone] Rosalee Edmonds MD [address] [place] [phone] COLONOSCOPY FLEXIBLE PROXIMAL DIAGNOSTIC 05/03/2025 3:00 PM EST [facility] [place] [facility] [place] [phone] Mark Arredondo MD [address] [place] [address] Scheduled Orders Name Type Priority Associated Diagnoses Orde r Schedule MRI L SPINE W CONTRAST Medical Imaging Routine Left leg pain Expected: 05/10/2024, Expires: 05/31/2025 Scheduled Procedures Name Priority Associated Diagnoses Date/Ti [...] this encounter Medical Devices Implanted Type Area Audiovisual Tech Device Identifier Shelf Expiration Date Model / Serial / Lot Port Power Mri W/8fr Cath - [id number] Implanted:Qty : 1 on 05/31/2017 by Nir Bailey MD at [facility] Right: Internal Jugular CR BARD : PERIPHERAL VASCULAR 01/19/2019 [id number] / / [id number] documented as of this encounter Results * (ABNORMAL) COMPREHENSIVE METABOLIC PANEL (05/03/2024 3:05 PM EST) BUN 36(H) 6 - 20 mg/dL 05/03/2024 3:41 PM EST [facility] CREATININE 1.4(H) 0.6 - 1.2 mg/dL 05/03/2024 3:41 PM EST [facility] EGFR 56(L) >=60 mL/min 05/03/2024 3:41 PM EST [facility] Comment:eGFR is calculated b ased on the CKD-EPI 2020 equation. SODIUM 139 135 - 146 mmol/L 05/03/2024 3:41 PM EST [facility] POTASSIUM 4.1 3.5 - 5.1 mmol/L 05/03/2024 3:41 PM EST [facility] CHLORIDE 101 98 - 107 mmol/L 05/03/2024 3:41 PM [facility] 56-02 CO2 28 22 - 32 mmol/L 05/03/2024 3:41 PM [facility] 56-02 ANION GAP 10 7 - 15 mmol/L 05/03/2024 3:41 PM EST [facility] 56-02 GLUCOSE 92 70 - 120 mg/dL 05/03/2024 3:41 PM [facility] 56-02 Albumin 4.4 3.8 - 5.0 g/dL 05/03/2024 3:41 PM [facility] 56-02 AST 22 10 - 50 U/L 05/03/2024 3:41 PM [facility] 56-02 Alkaline Phosphatase 74 35 - 130 U/L 05/03/2024 3:41 PM [facility] 56-02 Bilirubin, Total 0.5 <=1.2 mg/dL 05/03/2024 3:41 PM [facility] 56- CALCIUM 9.8 8.4 - 10.2 mg/dL 05/03/2024 3:41 PM [facility] 56-02 Protein 7.5 6.0 - 8.3 g/dL 05/03/2024 3:41 PM [facility] 56-02 ALT 30 10 - 50 U/L 05/03/2024 3:41 PM [facility] 56-02 Blood Venous blood specimen / Unknown Venipuncture / Unknown 05/03/2024 3:05 PM EST 05/03/2024 3:05 PM EST us Mary GOFF LAB BLOOD ORDERABLES Jo l Result [facility] 56-[address] [place] [address] * LD (05/03/2024 3:05 PM EST) LD 141 <=250 U/L 05/04/2024 3:3 1 AM EST [facility] Blood Venous blood specimen / Unknown Venipuncture / Unknown 05/03/2024 3:05 PM EST 05/03/2024 3:05 PM EST us Mary Garcia SHELL LAB BLOOD ORDERABLES Jo l Result [facility] [address] [facility] [place] [id number] documented in this encounter Visit Diagnoses Diagnosis Left leg pain- Primary Pain in limb Diffuse large B-cell lymphoma of intra-abdominal lymph nodes (HCC) Other malignant lymphomas of intra-abdominal lymph nodes History of colon polyps Personal history of colonic polyps Special screening for malignant neoplasms, colon documented in this encounter Advance Directives * Full Code [...] Power of Attor lissette? No Care Teams General Merchandise Salesperson Relationship Specialty Start Date End Date Festus Coyle MD [address] [facility] [place] [address] PCP - General Family Medicine 03/03/24 documented as of this encounter
--- OUTSIDE RECORDS SUMMARY | 2024-07-11 19:18 | External Medical Summary ---
Author Name Unknown Address Unknown Organization K[facility] [address] [place] [address] Laboratory Report Ordering Provider Test Date Status DESIREE PRAKASH 05/03/2024 15:05:03 Final Observation Date Value Abnormality Reference (Units ) Status BUN 05/03/2024 15:05:03 36 Above high normal 6-20 (mg/dL) Final Creatinine 05/03/2024 15:05:03 1.4 Above high normal 0.6-1.2 (mg/dL) Final Glomerular filtration rate/1.73 sq M.predicted [Volume Rate/Area] in Serum, Plasma or Blood by Creatinine-based formula (CKD-EPI) 05/03/2024 15:05:03 56 Below low normal >=60 (mL/min) Final eGFR is calculated based on the CKD-EPI 2020 equation. Sodium 05/03/2024 15:05:03 139 135-146 (m mol/L) Final Potassium 05/03/2024 15:05:03 4.1 3.5-5.1 (m mol/L) Final Cl 05/03/2024 15:05:03 101 98-107 (mm ol/L) Final CO2 05/03/2024 15:05:03 28 22-32 (mmo l/L) Final Anion gap 05/03/2024 15:05:03 10 7-15 (mmol /L) Final Glucose 05/03/2024 15:05:03 92 70-120 (mg /dL) Final Albumin 05/03/2024 15:05:03 4.4 3.8-5.0 (g /dL) Final AST (Aspartate aminotransferase) 05/03/2024 15:05:03 22 10-50 (U/L) Final Alk Phos 05/03/2024 15:05:03 74 35-130 (U/ L) Final Bilirubin, Total 05/03/2024 15:05:03 0.5 <=1 .2 (mg/dL) Final Calcium 05/03/2024 15:05:03 9.8 8.4-10.2 ( mg/dL) Final Protein 05/03/2024 15:05:03 7.5 6.0-8.3 (g /dL) Final ALT (Alanine aminotransferase) 05/03/2024 15:05:03 30 10-50 (U/L) Final Performing Location [facility] [address] [place] [address]
--- OUTSIDE RECORDS SUMMARY | 2024-07-11 19:18 | External Medical Summary | Summary of Care ---
Author Name Unknown Organization [facility] Address [address] [place] [address] Phone [phone] Care Team Providers Care Fisher Trawl Net Name Role Phone Festus Coyle MD Primary Care Provider [phone] Reason for Referral * Evaluate & Treat - Unlimited Visits (Within 10 days (routine)) - Pending Review Specialty Diagnoses / Procedures Referred By Raúl adhikari Referred To Contact Physical Therapy / Physical Medicine And Rehab Diagnoses Lumbar radiculopathy Degeneration of intervertebral disc of lumbar region with discogenic back pain and lower extremity pain Jordon Foote DO [address] [place] [address] Phone: tel: fax: Referral ID Status Reason Start Date Expiration Date Visits Requested Visits Authorized [id number] Pending Review Specialty Services Required 07/05/2024 [id number] Question Answer Referral Priority Within 10 days (routine) Where should this appointment be scheduled? External Comments Evaluate and treat for left L3 and L4 radiculopathy. Please try gentle corina exercises, massage therapy, core optimization/postural retraining, nerve glides (only as tolerated), heat/cold therapy and TENS trial or as otherwise indicated. * Precert (Within 10 days (routine)) - Pending Review Specialty Diagnoses / Procedures Referred By Raúl adhikari Referred To Contact Pain Medicine Diagnoses Lumbar radiculopathy Degeneration of intervertebral disc of lumbar region with discogenic back pain and lower extremity pain Procedures INJECT DX/THER SUBSTANCE INTERLAMINAR LUMBAR/SACRAL W IMAGE GUIDE Jordon Foote DO [address] [place] [address] Phone: tel: fax: Referral ID Status Reason Start Date Expiration Date V isits Requested Visits Authorized [id number] Pending Review 07/06/2024 [id number] Reason for Visit * Reason Comments Back Pain * Evaluate & Treat - Unlimited Visits (Within 10 days (routine)) - Pending Review Specialty Diagnoses / Procedures Referred By Raúl t Referred To Contact Pain Management / Pain Medicine Diagnoses Left leg pain Mary Garcia, SHE[facility] [address] [facility] [place] [address] Phone: tel: fax: Referral ID Status Reason Start Date Expiration Date Visits Requested Visits Authorized [id number] Pending Review Specialty Services Required 06/12/2024 [id number] Encounter Details Date Type Department Care Team (Latest Contact Info) Description 07/05/2024 8:45 AM EDT Office Visit [facility] [address] [place] [address] Jordon Foote DO [address] [place] [phone] Lumbar radiculopathy*; Degeneration of intervertebral disc of lumbar region with discogenic back pain and lower extremity pain Allergies Active Allergy Reactions Criticality Noted Date Comments Amlodipine Tachycardia 07/12/2017 documented as of this encounter (statuses as of 07/05/2024) Medications Furosemide 40 MG Oral Tablet (Lasix)Indications :Edema of lower extremity,History of diffuse large B-cell lymphoma TAKE ONE-HALF TABLET BY MOUTH DAILY NEEDED FOR SWELLING 15 Tablet 1 2 Active Diclofenac Sodium 1 % External Gel (Voltaren)Indicati ons:Greater trochanteric bursitis of left hip Apply topically to affected area 2 times a day as needed for Pain, Mild. Apply 4 grams to left hip twice a day as needed - pain, . Apply to left hip twice a day as needed 150 g 2 3 Active Rosuvastatin Calcium 10 MG Oral Tablet (Crestor)Indicatio ns:Hyperlipidemia with target LDL less than 100 TAKE 1 TABLET BY MOUTH DAILY IN THE EVENING 90 Tablet 4 Active hydroCHLOROthiazid e 25 MG Oral Tablet (Hydrodiuril)Indic ations:HTN, goal below 140/90 Take 1 Tablet by mouth in the morning. 90 Tablet 3 5 Active Lisinopril 40 MG Oral TabletIndications: HTN, goal below 140/90 TAKE 1 TABLET BY MOUTH EVERY DAY IN THE MORNING 90 Tablet 1 5 Active Cetirizine HCl 10 MG Oral Tablet (ZyrTEC) TAKE 1 TABLET BY MOUTH EVERY DAY IN THE MORNING 90 Tablet 2 5 Active Ibuprofen 800 MG Oral Tablet (Motrin) TAKE 1 TABLET IN THE MORNING AND 1 TABLET AT NOON AND 1 TABLET BEFORE BEDTIME. WITH FOOD FOR PAIN. 90 Tablet 3 5 Active Gabapentin 100 MG Oral Capsule (Neurontin)Indicat ions:Lumbar radiculopathy,Dege neration of intervertebral disc of lumbar region with discogenic back pain and lower extremity pain Take 2 capsules by mouth at night x 1 week. After one week, can increase dose to 2 capsules by mouth twice daily. 120 Capsule 3 5 Active documented as of this encounter (statuses as of 07/05/2024) Active Problems Problem Noted Date Diagnosed Date [...] as of this encounter (statuses as of 07/05/2024) Resolved Problems Problem Noted Date Diagnosed Date Resolved Date Antineoplastic chemotherapy induced pancytopenia 02/17/2018 12/08/2021 Food insecurity 11/02/2017 02/03/2024 Overview: Per [facility] Protocol Chemotherapy-induced neuropathy 09/13/2017 12/08/2021 documented as of this encounter (statuses as of 07/05/2024) Immunizations Name Administration Dates Next Due COVID-19 [...] documented in this encounter Progress Notes * Jordon Foote, - 07/05/2024 9:00 AM EDT Interventional Pain Consult Dear Mary GOFF, thank you for your kind referral of Jaime Giordano. Chief Complaint: Chief Complaint Patient presents with Back Pain History of Present Illness: As you know, Jaime Giordano is a very pleasant 63 year old male with a past medical history significant for Past Medical History: Diagnosis Date Diffuse large B cell lymphoma (HCC) Hypertension No known health problems who was referred to the pain clinic for evaluation for lumbar radiculopathy. The pain is located in the lower back, and it does radiate to the left upper leg and knee. He states this is associated with the feeling of his leg giving out due to pain and weakness. He describes it as a ripping, burning sensation. The pain started about 1-2 months ago, after no noticeable injury. Aggravating factors include: bending at the waist, putting socks on. Alleviating factors include: avoidance of positions and movement. The pain is present 100 % of time. His current pain score is 7/10. His pain at its least is 7 / 10. His worst pain is 10 / 10. Reports separate headaches as well, has not brought this up with PCP. Reports weakness. Denies numbness. Denies bowel or bladder incontinence. Denies symptoms of saddle anesthesia. Denies fevers/chills/night sweats. Denies unintentional weight loss. Current Pertinent Medications: ibuprofen Medications Trialed for this Issue Previously: Acetaminophen: Yes, explain: helped a little Steroids: No, explain: NSAIDS: Yes, explain: Anticonvulsants: No, explain: Muscle Relaxants: No, explain: Topical Agents: Yes, explain: diclofenac helped Anti-Depressants: No, explain: Opioids: No, explain: Other: Pertinent Medications Poorly Tolerated Previously: denies Interventional Pain Procedures: denies Pertinent Surgeries: denies Physical Therapy: denies Other Therapies: denies Psychosocial Factors: He admits feeling depressed. He admits feeling anxiety. He denies} any suicidal or homicidal ideation. [facility]. He denies tobacco use. He denies} alcohol use. He denies personal history of substance abuse. He denies family history of substance abuse. He denies pending litigation, worker's compensation, or disability claims related to reported issue. Review of Systems: A comprehensive 14-pt ROS were of reviewed with the patient including difficulty with sleep, snoring, aspiration history, dysphagia, stomach pain, nausea and vomiting, severe headaches, confusion, open skin lesions or wounds, chest pain, shortness of breath, excessive thirst, somnolence, dysuria, incomplete bladder emptying, easy bruising, recent clotting problems or bleeding, depression or rushed thoughts. These were all negative unless noted previously. Past Medical History: Diagnosis Date Diffuse large B cell lymphoma (HCC) Hypertension No known health problems Past Surgical History: Procedure Laterality Date BX LYMPH NODE-SUPERFIC Left 04/12/2017 BIOPSY LYMPH NODE OPEN SUPERFICIAL performed by Nir Bailey MD at OR [facility] COLONOSCOPY COLONOSCOPY, DIAGNOSTIC (RECTUM) 06/17/2017 adenomatous polyp, diverticulosis, repeat 5 yrs/COLONOSCOPY FLEXIBLE PROXIMAL DIAGNOSTIC performed by Hilda Luevano DO at ENDOSCOPY [facility] INSER TUNN ACC DEV;5 YRS/OLDER 05/31/2017 INSERT TUNNELED CENTRAL VENOUS ACCESS WITH SUBQ PORT performed by Nir Bailey MD at [facility] PROCEDURE - GENERAL Left 04/26/2023 removal [...] 0-17 years): Not on file Food Insecurity: No Food Insecurity (01/07/2024) Food Insecurity Worried About Running Out of Food in the Last Year: Never true Ran Out of Food in the Last Year: Never true Do you need food for this week? (Adult - for ages 18 years and over): No Transportation Needs: No Transportation Needs (01/07/2024) Transportation [...] Stability Do you currently live in a half-way or have no steady place to sleep [...] - for ages0-17 years): Not on file Amlodipine Current Outpatient Medications Medication Sig Dispense Refill [...] DAILY IN THE EVENING 90 Tablet 0 hydroCHLOROthiazide 25 MG Oral Tablet (Hydrodiuril) Take 1 Tablet by mouth in the morning. 90 Tablet 3 Lisinopril 40 MG Oral Tablet TAKE 1 TABLET BY MOUTH EVERY DAY IN THE MORNING 90 Tablet 1 Cetirizine HCl 10 MG Oral Tablet (ZyrTEC) TAKE 1 TABLET BY MOUTH EVERY DAY IN THE MORNING 90 Tablet2 Ibuprofen 800 MG Oral Tablet (Motrin) TAKE 1 TABLET IN THE MORNING AND 1 TABLET AT NOON AND 1 TABLET BEFORE BEDTIME. WITH FOOD FOR PAIN. 90 Tablet 3 Gabapentin 100 MG Oral Capsule (Neurontin) Take 2 capsules by mouth at night x 1 week. After one week, can increase dose to 2 capsules by mouth twice daily. 120 Capsule 3 No current facility-administered medications for this visit. Family History Problem Relation Name Age of Onset Cancer Father throat cancer Pertinent Labs/Test Results: INR ( ) Date Value 05/23/2018 1.06 No results found for: "CREATININE" No results found for: "HGBA1C", "[id number]" No results found for: "AMPHETAMINE", "BARBITURATES", "BENZODIAZEPINES", "BUPRENORPHINE", "METHADONE", "OPIATES", "OXYCODONE", "PHENCYCLIDINE", "CANNABINOIDS", "TOX SCREEN", "URINE", "TOX SCREEN-SERUM", "TOX SCREEN, URINE" Imaging: I personally reviewed the imaging and my findings were . MRI L SPINE W WO CONTRAST EXAM: MRI LUMBAR SPINE WITHOUT AND WITH CONTRAST HISTORY: radicular left leg pain COMPARISON: None. TECHNIQUE: Multiplanar multisequence MRI of the lumbar spine without and with intravenous contrast was performed and reviewed. FINDINGS: VERTEBRAE: Straightening with maintained alignment. Vertebral body heights are maintained. Type 1 Modic/active endplate changes at L4-L5. CONUS/CAUDA EQUINA: The cauda equina and conus medullaris are of normal morphology and signal characteristics. The conus terminates appropriately. DISC LEVEL L1-L2: Normal disc. No canal or foraminal stenosis. L2-L3: Normal disc. No canal or foraminal stenosis. L3-L4: Posterior annular fissure with left extraforaminal disc protrusion with abutment of the leftexiting nerve root. Mild left foraminal stenosis. L4-L5: Disc bulge and facet arthrosis with mild canal and foraminal stenosis. L5-S1: Normal disc. No canal or foraminal stenosis. PARAVERTEBRAL SOFT TISSUES: Unremarkable. No abnormal enhancement after intravenous gadolinium. Dilated left renal pelvis. IMPRESSION: Left extraforaminal disc protrusion at L3-L4 abutting the exiting nerve root. Mild degenerative changes at other levels. Objective Physical Exam: Vital Signs: There were no vitals taken for this visit. There is no height or weight on file to calculate BMI. General: No apparent distress. Eyes: pupils equal and round, sclera white, pupils midsize. ENT: mucous membranes moist Resp: Non-labored breathing CV: Extremities warm and well-perfused. Psych: Oriented; affect warm, insight good. Skin: No rashes or lesions appreciated on exposed skin Neuromuscular Exam: Inspection: Rises from a seated position with difficulty. There is not evidence of erythema, edema in the extremities. Gait: Ambulates unassisted; gait is antalgic. Palpation: Palpation does reveal midline lumbar tenderness; There is lumbar paraspinal tenderness bilaterally regions. Trigger points were not identified. PSIS tenderness: none GTB tenderness: none Spine range of motion: There is pain with lumbar extension There is pain with lumbar oblique extension to the right There is pain with lumbar oblique extension to the left There is pain with lumbar flexion Range of motion is grossly intact at the hips, knees and ankles bilaterally. Motor: Motor strength exam reveals: Lower extremities: Right Left Hip flexion: L1,L2,L3 5/5 4/5 Add hips: L2L3 5/5 5/5 Knee flexion: S1 5/5 5/5 Knee extension: L3,L4 5/5 4/5 Dorsiflexion: L4,L5 5/5 5/5 Plantarflexion: S1 5/5 5/5 EHL: L5 5/5 5/5 Sensory: Sensory exam to light touch is reduced in the left L3 and L4 dermatomes. Reflexes: Deep tendon reflexes, Right 1+ patellar, 1+ Achilles, Left 1+ patellar, 1+ Achilles, No ankle clonus. Sitting straight leg test Negative on the right Positive on the left. Assessment: Jaime Giordano is a 63 year old year-old male with: Lumbar radiculopathy (Primary) - INJECT DX/THER SUBSTANCE INTERLAMINAR LUMBAR/SACRAL W IMAGE GUIDE; Future; Expected date: 07/06/2024 - PHYSICAL THERAPY REFERRAL OP - Gabapentin 100 MG Oral Capsule (Neurontin); Take 2 capsules by mouth at night x 1 week. After oneweek, can increase dose to 2 capsules by mouth twice daily. Degeneration of intervertebral disc of lumbar region with discogenic back pain and lower extremity pain - INJECT DX/THER SUBSTANCE INTERLAMINAR LUMBAR/SACRAL W IMAGE GUIDE; Future; Expected date: 07/06/2024 - PHYSICAL THERAPY REFERRAL OP - Gabapentin 100 MG Oral Capsule (Neurontin); Take 2 capsules by mouth at night x 1 week. After oneweek, can increase dose to 2 capsules by mouth twice daily. Plan: Will plan left L4/5 interlaminar epidural steroid injection, cephalad in the window. The risks, benefits and alternatives to the procedure were reviewed at length and the patient was provided the opportunity to ask questions which were answered to their voiced understanding. Following this comprehensive discussion, the patient opted to proceed. 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 Pre-procedural guidance provied. NSAIDs/supps x 3 days. START gabapentin 200mg po QHS with advancement to BID provided. Risks, benefits, alternatives to pharmacotherapy reviewed at length including the most common side effects. The patient was provided the opportunity to ask questions which were answered to his voiced understanding. The patient has opted to proceed following this discussion. PT referral issued. Evaluate and treat for left L3 and L4 radiculopathy. Please try gentle corina exercises, massage therapy, core optimization/postural retraining, nerve glides (only as tolerated), heat/cold therapy and TENS trial or as otherwise indicated. Will consider oral steroids, message sent to PCP and oncologist to clarify if this is safe for him.Would be prednisone 50x 5 days with taper with famotidine GI prophylaxis. I spent a total of 40-54 minutes (exact time 47 mins) on the date of service in preparation, delivery, and documentation of the care provided to Jaime Giordano excluding any time spent in the performance of separately billed services or time spent by another provider/QHP. Jordon Foote DO [facility] [address] [facility] [place] [phone] documented in this encounter Nursing Notes * Sherry Tamez LPN - 07/05/2024 8:47 AM EDT Patient here for low back and left leg pain Leg "give out" No PT MRI in chart Uses ibuprofen and tylenol daily Difficulty putting socks on No hx of spine surgery/inj's documented in this encounter Plan of Treatment Upcoming Encounters Date Type Department Care Team (Latest Contact Info) Description 07/07/2024 10:00 AM EDT Office Visit [facility], [place] [phone] Festus Coyle MD [address] [place] [address] 08/02/2024 2:00 PM EDT Office Visit [facility], [place] [address] [place] [phone] Festus Coyle MD [address] [place] [address] 09/07/2024 11:45 AM EDT Hospital Encounter ENDO [facility], Endoscopy Room [facility] [address] [place] [address] Rosalee Edmonds MD [address] [place] [id number] 09/07/2024 11:45 AM EDT - 09/07/2024 12:15 PM EDT Surgery ENDO [facility], Endoscopy Room [facility] [address] [place] [phone] Rosalee Edmonds MD [address] [place] [address] COLONOSCOPY FLEXIBLE PROXIMAL DIAGNOSTIC 10/16/2024 Hospital Encounter OR [facility], Operating Room [facility] [address] [place] [address] [place] [address] Jordon Foote DO [address] [place] [phone] 05/03/2025 3:00 PM EST Office Visit Hematology/Oncology [employer] [address] [place] [phone] Mark Arredondo MD [address] [facility] [place] [address] Scheduled Orders Name Type Priority Associated Diagnoses Orde r Schedule INJECT DX/THER SUBSTANCE INTERLAMINAR LUMBAR/SACRAL W IMAGE GUIDE Procedures Routine Lumbar radiculopathy Degeneration of intervertebral disc of lumbar region with discogenic back pain and lower extremity pain Expected: 07/06/2024, Expires: 11/04/2024 Scheduled Procedures Name Priority Associated Diagnoses Date/Ti me COLONOSCOPY FLEXIBLE PROXIMAL DIAGNOSTIC History of colon polyps Special screening for malignant neoplasms, colon 09/07/2024 11:45 AM EDT INJECTION SPINE LUMBAR OR SACRAL Lumbar radiculopathy Scheduled Referrals Name Type Priority Associated Diagnoses Orde r Schedule PHYSICAL THERAPY REFERRAL OP Referral Within 10 days (routine) Lumbar radiculopathy Degeneration of intervertebral disc of lumbar region with discogenic back pain and lower extremity pain Ordered: 07/05/2024 Health Maintenance Due Date Last Done Comments Cologuard 07/31/2007 Fecal Occult Blood Test 07/31/2007 Sigmoidoscopy 07/31/2007 Colonoscopy 06/17/2022 06/17/2017, 06/17/2017 Colorectal Cancer Screening 06/17/2022 Depression Screening 07/01/2024 07/02/2023 Pneumococcal Vaccine: 50+ [...] this encounter Medical Devices Implanted Type Area Complaint Analyst Device Identifier Shelf Expiration Date Model / Serial / Lot Port Power Mri W/8fr Cath - [id number] Implanted:Qty : 1 on 05/31/2017 by Nir Bailey MD at [facility] Right: Internal Jugular CR BARD : PERIPHERAL VASCULAR 01/19/2019 [id number] / / [id number] documented as of this encounter Visit Diagnoses Diagnosis Lumbar radiculopathy- Primary Thoracic or lumbosacral neuritis or radiculitis, unspecified Degeneration of intervertebral disc of lumbar region with discogenic back pain and lower extremity pain History of colon polyps Personal history of [...] Power of Attor lissette? No Care Teams Fisher Trawl Net Relationship Specialty Start Date End Date Festus Coyle MD [address] [place] [address] PCP - General Family Medicine 07/05/24 documented as of this encounter
--- OUTSIDE RECORDS SUMMARY | 2024-07-11 19:18 | External Medical Summary ---
Author Name Unknown Address Unknown Organization K09:[facility] [place] [address] Laboratory Report Ordering Provider Test Date Status DESIREE PRAKASH 05/03/2024 15:05:03 Final Observation Date Value Abnormality Reference (Units ) Status WBC, Total 05/03/2024 15:05:03 6.25 4.00-10.8 0 (K/uL) Final RBC 05/03/2024 15:05:03 4.64 4.50-5.25 (M/uL) Final Hemoglobin 05/03/2024 15:05:03 12.8 Below low normal 14 .0-16.8 (g/dL) Final HCT 05/03/2024 15:05:03 39.3 Below low normal 40. 0-48.4 (%) Final MCV 05/03/2024 15:05:03 84.7 82.0-99.5 (fL) Final MCH 05/03/2024 15:05:03 27.6 27.0-34.0 (pg) Final MCHC 05/03/2024 15:05:03 32.6 32.0-36.0 (g/dL) Final RDW 05/03/2024 15:05:03 15.2 11.5-15.5 (%) Final Platelets 05/03/2024 15:05:03 148 140-400 (K /uL) Final MPV 05/03/2024 15:05:03 10.2 6.6-11.1 ( fL) Final Performing Location [facility] [place] [address]
--- OUTSIDE RECORDS SUMMARY | 2024-07-11 19:18 | External Medical Summary | Summary of Care ---
Author Name Unknown Organization [facility] Address [address] [place] [address] Phone [phone] Care Team Providers Care Amortization Clerk Name Role Phone Festus Coyle MD Primary Care Provider [phone] Reason for Referral * Evaluate & Treat - Unlimited Visits (Within 10 days (routine)) - Pending Review Specialty Diagnoses / Procedures Referred By Raúl adhikari Referred To Contact Pain Management / Pain Medicine Diagnoses Left leg pain Mary Garcia, MEDICAL RECORDS FIELD TECHNICIAN [address] [place] [address] Phone: tel: fax: Referral ID Status Reason Start Date Expiration Date Visits Requested Visits Authorized [id number] Pending Review Specialty Services Required 06/12/2024 999 999 Question Answer Referral Priority Within 10 days (routine) Where should this appointment be scheduled? [facility] Reason for referral? Interventional Pain Management - (Injection) What condition is the patient being referred for? Lumbar Radiculopathy What is the preferred location to have this test performed? [facility] Comments Patient Name: Jaime Giordano Date of : 1960 Department Phone Number: MRI or CT (if unable to have a MRI) is recommended if any of the following apply: 1. Patient has neck or back pain with radiation to extremities. A previous MRI will be accepted if symptoms unchanged since prior MRI. 2. Spinal surgery since last MRI. If yes, order a MRI with and without contrast. 3. Hx or ongoing cancer treatment. Patient will need spine x-ray (Ap/Lat) for axial neck or back pain if not done previously. Fax No. [facility] [phone] or contact front desk admin [phone] Fax No. [facility] [phone] or contact front desk admin [phone] Fax No. [facility] [phone] or contact front desk admin [phone] Encounter Details Date Type Department Care Team (Late st Contact Info) Description 06/12/2024 Orders Only Hematology/Oncology, [facility] [address] [facility] [place] [address] Mary Garcia CRNP 400 [facility] [place] [phone] Left leg pain* Allergies Active Allergy Reactions Criticality Noted Date Comments Amlodipine Tachycardia 07/12/2017 documented as of this encounter (statuses as of 06/13/2024) Medications Furosemide 40 MG Oral Tablet (Lasix)Indication [...] IN THE EVENING 90 Tablet 4 Active hydroCHLOROthiazi de 25 MG Oral [...] FOR PAIN. 90 Tablet 3 5 Active documented as of this encounter (statuses as of 06/13/2024) Active Problems Problem Noted Date Diagnosed Date [...] as of this encounter (statuses as of 06/13/2024) Resolved Problems Problem Noted Date Diagnosed Date Resolved Date Antineoplastic chemotherapy induced pancytopenia 02/17/2018 12/08/2021 Food insecurity 11/02/2017 02/03/2024 Overview: Per [facility] Protocol Chemotherapy-induced neuropathy 09/13/2017 12/08/2021 documented as of this encounter (statuses as of 06/13/2024) Immunizations Name Administration Dates Next Due COVID-19 [...] Marbella Georges RN documented in this encounter Plan of Treatment Upcoming Encounters Date Type Department Care Team (Latest Contact Info) Description 07/07/2024 10:00 AM EDT [facility] [address] [facility] [place] [phone] Festus Coyle MD [address] [place] [address] 08/02/2024 2:00 PM EDT [facility] [place] [address] [facility] [place] [phone] Festus Coyle MD 226 [facility] [place] [address] 09/07/2024 11:45 AM EDT Hospital Encounter ENDO [facility], Endoscopy Room [facility] [address] [place] [phone] Rosalee Edmonds MD [address] [place] [phone] 09/07/2024 11:45 AM EDT - 09/07/2024 12:15 PM EDT Surgery ENDO [facility], Endoscopy Room [facility] [address] [place] [address] Rosalee Edmonds MD [address] [place] [address] COLONOSCOPY FLEXIBLE PROXIMAL DIAGNOSTIC 05/03/2025 3:00 PM EST Office Visit Hematology/Oncology [place]y [place] [address] [place] [phone] Mark Arredondo MD [address] [place] [address] Scheduled Procedures Name Priority Associated Diagnoses Date/Ti me COLONOSCOPY FLEXIBLE PROXIMAL DIAGNOSTIC History of colon polyps Special screening for malignant neoplasms, colon 09/07/2024 11:45 AM EDT Scheduled Referrals Name Type Priority Associated Diagnoses Orde r Schedule PAIN MEDICINE REFERRAL OP Referral Within 10 days (routine) Left leg pain Ordered: 06/12/2024 Health Maintenance Due Date Last Done Comments [...] this encounter Medical Devices Implanted Type Area Rfp Writer Device Identifier Shelf Expiration Date Model / Serial / Lot Port Power Mri W/8fr Cath - [id number] Implanted:Qty : 1 on 05/31/2017 by Nir Bailey MD at OR [facility] Right: Internal Jugular CR BARD : PERIPHERAL VASCULAR 01/19/2019 [id number] / / [id number] documented as of this encounter Visit Diagnoses Diagnosis Left leg pain- Primary Pain in limb History of colon polyps Personal history of [...] Power of Attor lissette? No Care Teams Amortization Clerk Relationship Specialty Start Date End Date Festus Coyle MD [address] [place] [address] PCP - General Family Medicine 03/03/24 documented as of this encounter
--- OUTSIDE RECORDS SUMMARY | 2024-07-11 19:18 | External Medical Summary | Summary of Care ---
Author Name Unknown Organization [facility] Address [address] [place] [address] Phone [phone] Care Team Providers Care General Ophthalmologist Name Role Phone Festus Coyle MD Primary Care Provider [phone] Encounter Details Date Type Department Care Team (Late st Contact Info) Description 03/07/2024 Telephone Pre Surgery Center, 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 Apply 4 grams to left hip twice a day as needed - pain, . Apply to left hip twice a day as needed 150 g 2 01/15/20 23 Active Rosuvastatin Calcium 10 MG Oral Tablet (Crestor)Indica tions:Hyperlipi demia with target LDL less than 100 TAKE 1 TABLET BY MOUTH DAILY IN THE EVENING 90 Tablet 12/19/19 24 Active Ibuprofen 800 MG Oral Tablet (Motrin) TAKE 1 TABLET IN THE MORNING AND 1 TABLET AT NOON AND 1 TABLET BEFORE BEDTIME. WITH FOOD FOR PAIN. 90 Tablet 3 02/16/20 24 Active Cetirizine HCl 10 MG Oral Tablet (ZyrTEC) TAKE 1 TABLET BY MOUTH EVERY DAY IN THE MORNING 90 Tablet 3 02/12/20 23 025 Discontinued(Re fill) Lisinopril 40 MG Oral TabletIndicatio ns:HTN, goal below 140/90 Take 1 Tablet by mouth in the morning. 90 Tablet 3 04/23/19 24 025 Discontinued documented as of this encounter (statuses as of 06/07/2024) Active Problems Problem Noted Date Diagnosed Date [...] as of this encounter (statuses as of 06/07/2024) Resolved Problems Problem Noted Date Diagnosed Date Resolved Date Antineoplastic chemotherapy induced pancytopenia 02/17/2018 12/08/2021 Food insecurity 11/02/2017 02/03/2024 Overview: Per [facility] Protocol Chemotherapy-induced neuropathy 09/13/2017 12/08/2021 documented as of this encounter (statuses as of 06/07/2024) Immunizations Name Administration Dates Next Due COVID-19 mRNA, LNP-s, No Pre serve, 2-Dose Series (AppSlingr) 07/10/2020,06/19/2020 DTaP Dipth/Tet/Acell Pertussis (Infanrix), Peds 10/05/2019,05/18/2019,03/06/2019 [...] No 01/07/2024 Does the household have a [facility] source of income? (Household - for ages [...] encounter Miscellaneous Notes * Telephone Encounter - Samantha Matias RN - 03/10/2024 8:12 AM EST Called patient for pre anesthesia evaluation for upcoming procedure ,no answer. Left message on machine /request return call * Telephone Encounter - Samantha Matias RN - 03/07/2024 8:21 AM EST Called patient for pre anesthesia evaluation for upcoming procedure ,no answer. Left message on machine /request return call documented in this encounter Plan of Treatment Upcoming Encounters Date Type Department Care Team (Latest Contact Info) Description 06/07/2024 11:00 AM EDT Imaging Radiology [address] [place] [phone] 07/07/2024 10:00 AM EDT Office Visit [address] [place] [phone] Festus Coyle MD [address] [place] [address] 08/02/2024 2:00 PM EDT Office Visit [facility] [address] [facility] [place], [place] [address] Festus Coyle MD [address] [place] [address] 09/07/2024 11:45 AM EDT Hospital Encounter ENDO [facility], Endoscopy Room [facility] [address] [place], [place] [phone] Rosalee Edmonds MD [address] [place] [address] 09/07/2024 11:45 AM EDT - 09/07/2024 12:15 PM EDT Surgery ENDO [facility], Endoscopy Room [facility] [address] [facility] [place] [phone] Rosalee Edmonds MD [address] [place] [address] COLONOSCOPY FLEXIBLE PROXIMAL DIAGNOSTIC 05/03/2025 3:00 PM EST Office Visit Hematology/Oncology [facility] 200 [facility] [place] [address] Mark Arredondo MD 200 [facility] [place] [address] Scheduled Procedures Name Priority Associated Diagnoses Date/Ti [...] this encounter Medical Devices Implanted Type Area Application Manager Device Identifier Shelf Expiration Date Model / Serial / Lot Port Power Mri W/8fr Cath - [id number] Implanted:Qty : 1 on 05/31/2017 by Nir Bailey MD at OR [facility] Right: Internal Jugular CR BARD : PERIPHERAL VASCULAR 01/19/2019 [id number] / / [id number] documented as of this encounter Advance Directives [...] of Attor lissette? No Care Teams General Ophthalmologist Relationship Specialty Start Date End Date Festus Colye MD [address] [facility] [place] [address] PCP - General Family Medicine 03/03/24 documented as of this encounter
--- OUTSIDE RECORDS SUMMARY | 2024-07-11 19:18 | External Medical Summary ---
Author Name Unknown Address Unknown Organization K01:[facility] [address] [place] [address] Laboratory Report Ordering Provider Test Date Status DESIREE PRAKASH 05/03/2024 15:05:03 Final Observation Date Value Abnormality Reference (Units ) Status LDH 05/03/2024 15:05:03 141 <=250 (U/L ) Final Performing Location [facility] [address] [place] [address]
--- OUTSIDE RECORDS SUMMARY | 2024-07-11 19:18 | External Medical Summary | Summary of Care ---
Author Name Unknown Organization [facility] Address [address] [place] [address] Phone [phone] Care Team Providers Care Medical Records Technician Name Role Phone Festus Coyle MD Primary Care Provider [phone] Reason for Visit * Reason Onset Date Comments Referral 06/12/2024 Encounter Details Date Type Department Care Team (Late st Contact Info) Description 06/12/2024 Telephone Access Center, [place] [address] [facility] *DO NOT REMOVE THIS DEPARTMENT* [place] [phone] Services, Scheduling [address] [place] [address] Referral Allergies Active Allergy Reactions Criticality Noted Date Comments Amlodipine Tachycardia 07/12/2017 documented as of this encounter (statuses as of 06/14/2024) Medications Furosemide 40 MG Oral Tablet (Lasix)Indication [...] as of this encounter (statuses as of 06/14/2024) Active Problems Problem Noted Date Diagnosed Date [...] as of this encounter (statuses as of 06/14/2024) Resolved Problems Problem Noted Date Diagnosed Date Resolved Date Antineoplastic chemotherapy induced pancytopenia 02/17/2018 12/08/2021 Food insecurity 11/02/2017 02/03/2024 Overview: Per [facility] Protocol Chemotherapy-induced neuropathy 09/13/2017 12/08/2021 documented as of this encounter (statuses as of 06/14/2024) Immunizations Name Administration Dates Next Due COVID-19 mRNA, LNP-s, No Pre serve, 2-Dose Series (WellnessFX) 07/10/2020,06/19/2020 DTaP Dipth/Tet/Acell Pertussis (Infanrix), Peds 10/05/2019,05/18/2019,03/06/2019 [...] encounter Miscellaneous Notes * Telephone Encounter - Sherry Gaming OSA - 06/12/2024 2:46 PM EDT PLEASE TRIAGE REFERRAL documented in this encounter Plan of Treatment Upcoming Encounters Date Type Department Care Team (Latest Contact Info) Description 07/07/2024 10:00 AM EDT [facility] [place] [phone] Festus Coyle MD [address] [place] [address] 08/02/2024 2:00 PM EDT [facility] [place] [phone] Festus Coyle MD [address] [place] [address] 09/07/2024 11:45 AM EDT Hospital Encounter ENDO [facility], Endoscopy Room [facility] [address] [place] [phone] Rosalee Edmonds MD [address] [place] [address] 09/07/2024 11:45 AM EDT - 09/07/2024 12:15 PM EDT Surgery ENDO [facility], Endoscopy Room [facility] [address] [place] [phone] Rosalee Edmonds MD [address] [place] [address] COLONOSCOPY FLEXIBLE PROXIMAL DIAGNOSTIC 05/03/2025 3:00 PM EST Office Visit Hematology/Oncology Christy Christina [place] 200 [facility] [place] [phone] Mark Arredondo MD 200 [facility] [place] [address] Scheduled Procedures Name Priority Associated Diagnoses Date/Ti [...] this encounter Medical Devices Implanted Type Area Pipe Fitter Gas Pipe Device Identifier Shelf Expiration Date Model / Serial / Lot Port Power Mri W/8fr Cath - [id number] Implanted:Qty : 1 on 05/31/2017 by Nir Bailey MD at OR [facility] Right: Internal Jugular CR BARD : PERIPHERAL VASCULAR 01/19/2019 [id number] / / [id number] documented as of this encounter Advance Directives [...] Power of Attor lissette? No Care Teams Medical Records Technician Relationship Specialty Start Date End Date Festus Coyle MD [address] [place] [address] PCP - General Family Medicine 03/03/24 documented as of this encounter
--- OUTSIDE RECORDS SUMMARY | 2024-07-11 19:18 | External Medical Summary | Summary of Care ---
Author Name Unknown Organization [facility] Address [address] [place] [address] Phone [phone] Care Team Providers Care Medical Health Researcher Name Role Phone Festus Coyle MD Primary Care Provider [phone] Reason for Referral * Precert (Within 10 days (routine)) - Pending Review Specialty Diagnoses / Procedures Referred By Contellie t Referred To Contact Radiology Diagnoses Left leg pain Procedures MRI L SPINE W CONTRAST Mary Garcia CRNP [address] [place] [address] Phone: tel: fax: Referral ID Status Reason Start Date Expiration Date V isits Requested Visits Authorized [id number] Pending Review 05/10/2024 999 999 Reason for Visit * Reason Comments Follow Up 1y Encounter Details Date Type Department Care Team (Late st Contact Info) Description 05/03/2024 2:30 PM EST Office Visit Hematology/Oncology [facility] [place] [facility] [phone] Mary Garcia CRNP [address] [place] [address] Left leg pain*; Diffuse [...] 2:30 PM EST Hematology/Oncology Outpatient Clinic note [address] [address] Name: Jaime Giordano Date: 05/03/2024 CHIEF COMPLAINT: [...] the abdominal pain, he was seen at [facility] ER, -CT scan of the abdomen pelvis [...] (05/25/2017) PET-CT scan done on 05/26/2017 at [facility] showed metabolically active right axillary lymphadenopathy [...] SUPERFICIAL performed by Nir Bailey MD at [facility] COLONOSCOPY COLONOSCOPY, DIAGNOSTIC (RECTUM) 06/17/2017 adenomatous polyp, diverticulosis, repeat 5 yrs/COLONOSCOPY FLEXIBLE PROXIMAL DIAGNOSTIC performed by Hilda Luevano DO at ENDOSCOPY [facility] INSER TUNN ACC DEV;5 YRS/OLDER 05/31/2017 INSERT TUNNELED CENTRAL VENOUS ACCESS WITH SUBQ PORT performed by Nir Bailey MD at [facility] PROCEDURE - GENERAL Left 04/26/2023 removal of [...] Stability Do you currently live in a custodial or have no steady place to sleep [...] Description 05/17/2024 3:15 PM EST Imaging Radiology [address] [place] [phone] 07/07/2024 10:20 AM EDT [facility] [place] [place] [address] [place] [phone] Festus Coyle MD [address] [place] [address] 07/28/2024 9:00 AM EDT [facility] [place] [address] [place] [phone] Festus Coyle MD [address] [address] 09/07/2024 11:45 AM EDT Hospital Encounter ENDO [facility], Endoscopy Room [facility] [address] [place] [phone] Rosalee Edmonds MD [address] [place] [address] 09/07/2024 11:45 AM EDT - 09/07/2024 12:15 PM EDT Surgery ENDO [facility], Endoscopy Room [facility] [address] [place] [address] Rosalee Edmonds MD [address] [place] [address] COLONOSCOPY FLEXIBLE PROXIMAL DIAGNOSTIC 05/03/2025 3:00 PM EST Office [facility] 200 [facility] [place] [phone] Mark Arredondo MD [address] [place] [address] Pending Results Name Type Priority Associated Diagnoses Date /Time LD Lab Routine Diffuse large B-cell lymphoma of intra-abdominal lymph nodes (HCC) 05/03/2024 3:05 PM EST Scheduled Orders Name Type Priority Associated Diagnoses Orde r Schedule MRI L SPINE W CONTRAST Medical Imaging Routine Left leg pain Expected: 05/10/2024, Expires: 05/31/2025 LD Lab Routine Diffuse large B-cell lymphoma of intra-abdominal lymph nodes (HCC) Expected: 05/03/2024, Expires: 05/03/2025 Scheduled Procedures Name Priority Associated Diagnoses Date/Ti [...] Additional history exists Lipid Panel 01/06/2029 01/07/2024, 08/, 06/16/2022, Additional history exists DTap/Tdap Vaccines (4 [...] this encounter Medical Devices Implanted Type Area Fixing Carpenter Device Identifier Shelf Expiration Date Model / Serial / Lot Port Power Mri W/8fr Cath - [id number] Implanted:Qty : 1 on 05/31/2017 by Nir Bailey MD at OR [facility] Right: Internal Jugular CR BARD : PERIPHERAL VASCULAR 01/19/2019 [id number] / / [id number] documented as of this encounter Results * (ABNORMAL) COMPREHENSIVE METABOLIC PANEL (05/03/2024 3:05 PM EST) BUN 36(H) 6 - 20 mg/dL 05/03/2024 3:41 PM EST [facility] 56-02 CREATININE 1.4(H) 0.6 - 1.2 mg/dL 05/03/2024 3:41 PM EST [facility]-02 EGFR 56(L) >=60 mL/min 05/03/2024 3:41 PM [facility] 56- Comment:eGFR is calculated b ased on the CKD-EPI 2020 equation. SODIUM 139 135 - 146 mmol/L 05/03/2024 3:41 PM [facility] 56- POTASSIUM 4.1 3.5 - 5.1 mmol/L 05/03/2024 3:41 PM [facility] 56- CHLORIDE 101 98 - 107 mmol/L 05/03/2024 3:41 PM [facility] 56- CO2 28 22 - 32 mmol/L 05/03/2024 3:41 PM [facility] 56 ANION GAP 10 7 - 15 mmol/L 05/03/2024 3:41 PM [facility] 56- GLUCOSE 92 70 - 120 mg/dL 05/03/2024 3:41 PM [facility] 56- Albumin 4.4 3.8 - 5.0 g/dL 05/03/2024 3:41 PM [facility] 56- AST 22 10 - 50 U/L 05/03/2024 3:41 PM [facility] 56- Alkaline Phosphatase 74 35 - 130 U/L 05/03/2024 3:41 PM [facility] 56- Bilirubin, Total 0.5 <=1.2 mg/dL 05/03/2024 3:41 PM [facility] 56- CALCIUM 9.8 8.4 - 10.2 mg/dL 05/03/2024 3:41 PM [facility] 56- Protein 7.5 6.0 - 8.3 g/dL 05/03/2024 3:41 PM [facility] 56- ALT 30 10 - 50 U/L 05/03/2024 3:41 PM [facility] 56- Blood Venous blood specimen / Unknown Venipuncture / Unknown 05/03/2024 3:05 PM EST 05/03/2024 3:05 PM EST us Mary GOFF LAB BLOOD ORDERABLES Jo l Result [facility] [address] [place] [address] documented in this encounter Visit Diagnoses Diagnosis [...] of Attor lissette? No Care Teams Medical Health Researcher Relationship Specialty Start Date End Date Festus Coyle MD [address] [facility] [place] [address] PCP - General Family Medicine 03/03/24 documented as of this encounter
--- OUTSIDE RECORDS SUMMARY | 2024-07-11 19:18 | External Medical Summary | Summary of Care ---
Author Name Unknown Organization [facility] Address [address] [place] [address] Phone [phone] Care Team Providers Care Plate Finisher Name Role Phone Festus Coyle MD Primary Care Provider [phone] Reason for Visit * Reason Comments Outpatient Testing Encounter Details Date Type Department Care Team (Late st Contact Info) Description 05/03/2024 3:00 PM EST Laboratory Laboratory [facility] [address] [place] [address] [facility] [address] [place] [address] Diffuse large B-cell lymphoma of intra-abdominal lymph [...] mRNA, LNP-s, No Pre serve, 2-Dose Series (Pro V[employer]V) 07/10/2020,06/19/2020 DTaP Dipth/Tet/Acell Pertussis (Infanrix), Peds 10/05/2019,05/18/2019,03/06/2019 [...] No 01/07/2024 Does the household have a [facility] source of income? (Household - for ages [...] Description 05/17/2024 3:15 PM EST Imaging Radiology [facility] 1st [facility] [place] [address] [facility] [place] [address] 07/07/2024 10:20 AM EDT [facility] [place] [phone] Festus Coyle MD [address] [place] [address] 07/28/2024 9:00 AM EDT [facility] [place] [phone] Festus Coyle MD [address] [place] [address] 09/07/2024 11:45 AM EDT Hospital Encounter ENDO [facility], Endoscopy Room [facility] [address] [place] [phone] Rosalee Edmonds MD [address] [place] [address] 09/07/2024 11:45 AM EDT - 09/07/2024 12:15 PM EDT Surgery ENDO [facility], Endoscopy Room [facility] [address] [place] [phone] Rosalee Edmonds MD [address] [place] [address] COLONOSCOPY FLEXIBLE PROXIMAL DIAGNOSTIC 05/03/2025 3:00 PM EST Office Visit Hematology/Oncology [facility] [place] [address] [facility] [place] [phone] Mark Arredondo MD [address] [place] [address] Pending Results Name Type Priority Associated Diagnoses Date /Time LD Lab Routine Diffuse large B-cell lymphoma of intra-abdominal lymph nodes (HCC) 05/03/2024 3:05 PM EST Scheduled Procedures Name Priority Associated Diagnoses Date/Ti [...] this encounter Medical Devices Implanted Type [employer] Device Identifier Shelf Expiration Date Model / Serial / Lot Port Power Mri W/8fr Cath - [id number] Implanted:Qty : 1 on 05/31/2017 by Nir Bailey MD at OR [facility] Right: Internal Jugular CR BARD : PERIPHERAL VASCULAR 01/19/2019 [id number] / / [id number] documented as of this encounter Procedures Procedure Name Priority Date/Time Associated Diagnosis Comments DIFFERENTIAL, AUTOMATED Routine 05/03/2024 3:05 PM EST Diffuse large B-cell lymphoma of intra-abdominal lymph nodes (HCC) COMPREHENSIVE METABOLIC PANEL STAT 05/03/2024 3:05 PM EST Diffuse large B-cell lymphoma of intra-abdominal lymph nodes (HCC) CBC Routine 05/03/2024 3:05 PM EST Diffuse large B-cell lymphoma of intra-abdominal lymph nodes (HCC) CBC Routine 05/03/2024 3:05 PM EST Diffuse large B-cell lymphoma of intra-abdominal lymph nodes (HCC) documented in this encounter Results * DIFFERENTIAL, AUTOMATED (05/03/2024 3:05 PM EST) Pathologist [facility] WBC 6.25 4.00 - 10.80 K/uL 05/03/2024 3:22 PM EST LABORATORY [place] 56-02 Neutrophils % 59.6 40.0 - 75.0 % 05/03/2024 3:22 PM EST [facility] [place] 56-02 Lymphocytes % 32.2 18.0 - 42.0 % 05/03/2024 3:22 PM EST [facility] [place] 56-02 Monocytes % 7.7 1.0 - 11.0 % 05/03/2024 3:22 PM EST [facility] 56-02 Eosinophils % 0.5 0.0 - 6.0 % 05/03/2024 3:22 PM EST [facility] [place] 56-02 Basophils % 0.0 0.0 - 2.0 % 05/03/2024 3:22 PM EST [facility] [place] 56-02 Absolute Neutrophils 3.73 1.80 - 7.70 K/uL 05/03/2024 3:22 PM EST [facility] [place] 56-02 Absolute Lymphocytes 2.01 1.00 - 4.80 K/ul 05/03/2024 3:22 PM EST [facility] [place] 56-02 Absolute Monocytes 0.48 0.00 - 1.10 K/uL 05/03/2024 3:22 PM EST [facility] [place] 56-02 Absolute Eosinophils 0.03 0.00 - 0.70 K/uL 05/03/2024 3:22 PM EST [facility] [place] 56-02 Absolute Basophils 0.00 0.00 - 0.20 K/uL 05/03/2024 3:22 PM EST [facility] [place] 56-02 Blood Venous blood specimen / Unknown Venipuncture / Unknown 05/03/2024 3:05 PM EST 05/03/2024 3:05 PM EST Mary GOFF LAB BLOOD ORDERABLES Jo l Result [facility] 56-[address] [place] [address] * (ABNORMAL) CBC (05/03/2024 3:05 PM EST) Pathologist [facility] WBC 6.25 4.00 - 10.80 K/uL 05/03/2024 3:22 PM EST [facility] 56 RBC 4.64 4.50 - 5.25 M/uL 05/03/2024 3:22 PM EST [facility] 56 HGB 12.8(L) 14.0 - 16.8 g/dL 05/03/2024 3:22 PM EST [facility] 56 HCT 39.3(L) 40.0 - 48.4 % 05/03/2024 3:22 PM EST [facility] 56- MCV 84.7 82.0 - 99.5 fL 05/03/2024 3:22 PM EST [facility] 56-02 MCH 27.6 27.0 - 34.0 pg 05/03/2024 3:22 PM EST [facility] 56-02 MCHC 32.6 32.0 - 36.0 g/dL 05/03/2024 3:22 PM EST [facility] 56-02 RDW 15.2 11.5 - 15.5 % 05/03/2024 3:22 PM EST [facility] 56-02 PLT 148 140 - 400 K/uL 05/03/2024 3:22 PM EST [facility] 56-02 MPV 10.2 6.6 - 11.1 fL 05/03/2024 3:22 PM [facility] 56-02 Blood Venous blood specimen / Unknown Venipuncture / Unknown 05/03/2024 3:05 PM EST 05/03/2024 3:05 PM EST Mary GOFF LAB BLOOD ORDERABLES Jo l Result [facility] [address] [place] [address] * (ABNORMAL) COMPREHENSIVE METABOLIC PANEL (05/03/2024 3:05 PM EST) BUN 36(H) 6 - 20 mg/dL 05/03/2024 3:41 PM [facility] 56 CREATININE 1.4(H) 0.6 - 1.2 mg/dL 05/03/2024 3:41 PM [facility] 56 EGFR 56(L) >=60 mL/min 05/03/2024 3:41 PM [facility] 56 Comment:eGFR is calculated b ased on the CKD-EPI 2020 equation. SODIUM 139 135 - 146 mmol/L 05/03/2024 3:41 PM [facility] 56 POTASSIUM 4.1 3.5 - 5.1 mmol/L 05/03/2024 3:41 PM [facility] 56 CHLORIDE 101 98 - 107 mmol/L 05/03/2024 3:41 PM [facility] 56 CO2 28 22 - 32 mmol/L 05/03/2024 3:41 PM [facility] 56 ANION GAP 10 7 - 15 mmol/L 05/03/2024 3:41 PM [facility] 56 GLUCOSE 92 70 - 120 mg/dL 05/03/2024 3:41 PM [facility] 56 Albumin 4.4 3.8 - 5.0 g/dL 05/03/2024 3:41 PM [facility] 56 AST 22 10 - 50 U/L 05/03/2024 3:41 PM [facility] 56- Alkaline Phosphatase 74 35 - 130 U/L 05/03/2024 3:41 PM [facility] 56- Bilirubin, Total 0.5 <=1.2 mg/dL 05/03/2024 3:41 PM [facility] 56 CALCIUM 9.8 8.4 - 10.2 mg/dL 05/03/2024 3:41 PM [facility] 56 Protein 7.5 6.0 - 8.3 g/dL 05/03/2024 3:41 PM [facility] 56- ALT 30 10 - 50 U/L 05/03/2024 3:41 PM EST [facility] 56- Blood Venous blood specimen / Unknown Venipuncture / Unknown 05/03/2024 3:05 PM EST 05/03/2024 3:05 PM EST us Mary Heron GOFF LAB BLOOD ORDERABLES Jo l Result [facility] 56- [address] [place] [address] documented in this encounter Visit Diagnoses Diagnosis Diffuse large B-cell lymphoma of intra-abdominal lymph [...] Power of Attor lissette? No Care Teams Plate Finisher Relationship Specialty Start Date End Date Festus Coyle MD [address] [facility] [place] [address] PCP - General Family Medicine 03/03/24 documented as of this encounter
--- OUTSIDE RECORDS SUMMARY | 2024-07-11 19:18 | External Medical Summary | Summary of Care ---
Author Name Unknown Organization [facility] Address [address] [place] [address] Phone [phone] Care Team Providers Care Stage Electrician Name Role Phone Festus Coyle MD Primary Care Provider [phone] Reason for Visit * Reason Comments Follow Up Patient is here toda y for a routine follow up. Patient states while taking medication for BP he is having dizziness, headaches and anxiety, states he has noticed these symptoms for the last week. He did not take the medication today and so far has not had any symptoms. Encounter Details Date Type Department Care Team (Late st Contact Info) Description 06/19/2024 11:00 AM EDT Office Visit [facility] [address] [facility] [place] [address] Festus Coyle MD [address] [place] [address] Medication side effect*; HTN, goal below 140/90; Headache disorder Allergies Active Allergy Reactions Criticality Noted Date Comments Amlodipine Tachycardia 07/12/2017 documented as of this encounter (statuses as of 06/20/2024) Medications Furosemide 40 MG Oral Tablet (Lasix)Indication [...] as of this encounter (statuses as of 06/20/2024) Active Problems Problem Noted Date Diagnosed Date [...] as of this encounter (statuses as of 06/20/2024) Resolved Problems Problem Noted Date Diagnosed Date Resolved Date Antineoplastic chemotherapy induced pancytopenia 02/17/2018 12/08/2021 Food insecurity 11/02/2017 02/03/2024 Overview: Per [facility] Protocol Chemotherapy-induced neuropathy 09/13/2017 12/08/2021 documented as of this encounter (statuses as of 06/20/2024) Immunizations Name Administration Dates Next Due COVID-19 mRNA, LNP-s, No Pre serve, 2-Dose Series ([employer]) 07/10/2020,06/19/2020 DTaP Dipth/Tet/Acell Pertussis (Infanrix), Peds 10/05/2019,05/18/2019,03/06/2019 [...] Sign Reading Time Taken Comments Blood Pressure 98/71 06/19/2024 11:07 AM EDT Pulse 82 06/19/2024 11:07 AM EDT Temperature 36.2 °C (97.2 °F) 06/19/2024 11:05 AM E DT Respiratory Rate 16 06/19/2024 11:05 AM EDT Oxygen Saturation 98% 06/19/2024 11:05 AM EDT Inhaled Oxygen Concentration - - Weight 87.2 kg (192 lb 4.8 oz) 06/19/2024 11:05 AM EDT Height 172.7 cm (5' 8") 06/19/2024 11:05 AM EDT Body Mass Index 29.24 06/19/2024 11:05 AM EDT documented in this encounter Functional Status * [...] documented in this encounter Progress Notes * Festus Coyle MD - 06/19/2024 5:00 PM EDT Images from the original note were not included. Subjective Jaime Giordano is a 63 year old male that presents for Follow Up (Patient is here today for a routine follow up. /Patient states while taking medication for BP he is having dizziness, headaches and anxiety, states he has noticed these symptoms for the last week. He did not take the medication today and so far has not had any symptoms. ) History of Present Illness Objective BP 98/71 (BP Site: Right Arm, BP Position: Standing, BP Cuff Size: Regular) | Pulse 82 | Temp 97.2 °F (36.2 °C) (Tympanic) | Resp 16 | Ht 5' 8" (1.727 m) | Wt 192 lb 4.8 oz (87.2 kg) | SpO2 98% | BMI 29.24 kg/m² | BSA 2.05 m² Physical Exam General: alert, healthy, and no distress Head: Normocephalic, No masses, lesions, tenderness or abnormalities Heart: regular rate & rhythm, no murmur, and no gallops Lungs: chest symmetric with normal AP diameter, no chest deformities noted, no chest wall tenderness, lungs clear to auscultation Extremities: less than 2 second capillary refill, no joint deformities, effusion, or inflammation Results Assessment and Plan Assessment & Plan Visit Diagnoses and Orders 1. HTN, goal below 140/90 2. Headache disorder 3. Medication side effect Stay off HCTZ. Reassess at his scheduled visit in 2 weeks. Wrap-Up Check-out note: Cancel June with me. Franky for 1 month later I spent a total of 20-29 minutes (exact time 20 mins) on the date of service in preparation, delivery, and documentation of the care provided to Jaime Giordano excluding any time spent in the performance of separately billed services. Text in this note was generated using an ambient documentation service. I discussed the use of a device to record and summarize our discussion today. All persons present during the encounter consented to its use. documented in this encounter Nursing Notes * Sandy Guerra LPN - 06/19/2024 11:04 AM EDT The patient has been properly identified by confirmation of name and date of . Chief Complaint Patient presents with Follow Up Patient is here today for a routine follow up. Patient states while taking medication for BP he is having dizziness, headaches and anxiety, stateshe has noticed these symptoms for the last week. He did not take the medication today and so far has not had any symptoms. documented in this encounter Plan of Treatment Upcoming Encounters Date Type Department Care Team (Latest Contact Info) Description 07/07/2024 10:00 AM EDT Office Visit [facility] Lita [address] [place] [phone] Festus Coyle MD [address] [place] [address] 08/02/2024 2:00 PM EDT Office Visit [facility] Lita [place] [address] [place] [address] Festus Coyle MD [address] [place] [address] 09/07/2024 11:45 AM EDT Hospital Encounter ENDO [facility], Endoscopy Room [facility] [address] [place], [place] [address] Rosalee Edmonds MD [address] [place] [address] 09/07/2024 11:45 AM EDT - 09/07/2024 12:15 PM EDT Surgery ENDO [facility], Endoscopy Room [facility] [address] [place] [address] Rosalee Edmonds MD [address] [place] [address] COLONOSCOPY FLEXIBLE PROXIMAL DIAGNOSTIC 05/03/2025 3:00 PM EST Office Visit Hematology/Oncology [place] [address] [facility] [place] [address] Mark Arredondo MD [address] [facility] [place] [address] Scheduled Procedures Name Priority Associated Diagnoses Date/Ti [...] this encounter Medical Devices Implanted Type Area [employer] Customs And Border Officer Device Identifier Shelf Expiration Date Model / Serial / Lot Port Power Mri W/8fr Cath - [id number] Implanted:Qty : 1 on 05/31/2017 by Nir Bailey MD at OR [facility] Right: Internal Jugular CR BARD : PERIPHERAL VASCULAR 01/19/2019 [id number] / / [id number] documented as of this encounter Visit Diagnoses Diagnosis Medication side effect- Primary Unspecified adverse effect of unspecified drug, medicinal and biological substance HTN, goal below 140/90 Unspecified essential hypertension Headache disorder Headache History of colon polyps Personal history of [...] Power of Attor lissette? No Care Teams Stage Electrician Relationship Specialty Start Date End Date Festus Coyle MD [address] [place] [address] PCP - General Family Medicine 03/03/24 documented as of this encounter
--- OUTSIDE RECORDS SUMMARY | 2024-07-11 19:19 | External Medical Summary | Summary of Care ---
Author Name Unknown Organization [facility] Address [address] [place] [address] Phone [phone] Care Team Providers Care Regulator Assembler Name Role Phone Festus Coyle MD Primary Care Provider [phone] Encounter Details Date Type Department Care Team (Late st Contact Info) Description 03/29/2024 Telephone [facility] [place] [address] [facility] [place] [address] Festus Coyle MD [address] [place], [place] [phone] Allergies Active Allergy Reactions Criticality Noted Date Comments Amlodipine Tachycardia 07/12/2017 documented as of this encounter (statuses as of 03/29/2024) Medications Furosemide 40 MG Oral Tablet (Lasix)Indication [...] as needed 150 g 2 3 Active Cetirizine HCl 10 MG Oral Tablet (ZyrTEC) TAKE 1 TABLET BY MOUTH EVERY DAY IN THE MORNING 90 Tablet 3 3 Active Lisinopril 40 MG Oral TabletIndications :HTN, goal below 140/90 Take 1 Tablet by mouth in the morning. 90 Tablet 3 4 Active Rosuvastatin Calcium 10 MG Oral Tablet [...] the morning. 90 Tablet 3 5 Active documented as of this encounter (statuses as of 03/29/2024) Active Problems Problem Noted Date Diagnosed Date [...] as of this encounter (statuses as of 03/29/2024) Resolved Problems Problem Noted Date Diagnosed Date Resolved Date Antineoplastic chemotherapy induced pancytopenia 02/17/2018 12/08/2021 Food insecurity 11/02/2017 02/03/2024 Overview: Per [facility] Protocol Chemotherapy-induced neuropathy 09/13/2017 12/08/2021 documented as of this encounter (statuses as of 03/29/2024) Immunizations Name Administration Dates Next Due COVID-19 mRNA, LNP-s, No Pre serve, 2-Dose Series ([employer]) 07/10/2020,06/19/2020 DTaP Dipth/Tet/Acell Pertussis (Infanrix), Peds 10/05/2019,05/18/2019,03/06/2019 [...] ages 0-17 years) Not on file 01/07/2024 Sex and Gender Information Value Date [...] Assessment Author No 02/01/2018 11:40 AM Marbella Georges, ENEIDA * Do you have serious difficulty walking [...] encounter Miscellaneous Notes * Telephone Encounter - Joyce Crystal OSA - 03/29/2024 8:25 AM EST Please call patient to reschedule his Colonoscopy as he had on in February that was cancelled. Thank you. documented in this encounter Plan of Treatment Upcoming Encounters Date Type Department Care Team (Late st Contact Info) Description 04/07/2024 9:30 AM EST Nurse Only Ancillary Department, Lita [address] [place] [phone] Lita Nurse [address] [place] [address] 04/07/2024 9:50 AM EST Laboratory Laboratory, Lita Ramirez [address] [place] [phone] [facility] Laboratory [place] [address] 05/03/2024 2:30 PM EST Office Visit [facility]ematology[facility] [phone] Mary Garcia CRNP [address] [place] [address], [place] [address] 07/07/2024 10:20 AM EDT [facility] [place] [address] [place] [address] Festus Coyle MD [address] [place] [address] 07/28/2024 9:00 AM EDT [facility] [address] [place] [address] Festus Coyle MD [address] [place] [id number] Health Maintenance Due Date Last Done Comments Albumin/Creatinine Ratio 1980 Cologuard 07/31/2007 Fecal Occult Blood Test 07/31/2007 Sigmoidoscopy 07/31/2007 Colonoscopy 06/17/2022 06/17/2017, 06/17/2017 Colorectal Cancer Screening 06/17/2022 Depression Screening 07/01/2024 07/02/2023 Pneumococcal Vaccine: 50+ Years (3 of 3 - PPSV23, PCV20 or PCV21) 10/04/2024 10/05/2019, 03/06/2019, 11/04/2018, Additional history exists GFR 01/06/2025 01/07/2024, 10/20, 09/04/2022, Additional history exists Hepatitis C Screening 01/06/2025 Postpo jovany from 1980 (Patient Declined After Education) Diabetes Screening 01/06/2027 01/07/2024, 0 10/29/2022, 09/04/2022, Additional history exists Lipid Panel 01/06/2029 01/07/2024, [...] this encounter Medical Devices Implanted Type Area Vulcanized Fiber Unit Operator Device Identifier Shelf Expiration Date Model / Serial / Lot Port Power Mri W/8fr Cath - [id number] Implanted:Qty : 1 on 05/31/2017 by Nir Bailey MD at OR [facility] Right: Internal Jugular CR BARD : PERIPHERAL VASCULAR 01/19/2019 [id number] / / [id number] documented as of this encounter Advance Directives [...] Power of Attor lissette? No Care Teams Regulator Assembler Relationship Specialty Start Date End Date Festus Coyle MD [address] [place] [address] PCP - General Family Medicine 03/03/24 documented as of this encounter
--- OUTSIDE RECORDS SUMMARY | 2024-07-11 19:19 | External Medical Summary | Summary of Care ---
Author Name Unknown Organization [facility] Address [address] [place] [address] Phone [phone] Care Team Providers Care Six Horse Hitch Driver Name Role Phone Lazaro Coyle MD Primary Care Provider [phone] Reason for Visit * Reason Comments eRx-Medication Refill Encounter Details Date Type Department Care Team (Late st Contact Info) Description 03/30/2024 [facility] [address] [place] [address] Lazaro Coyle MD [address] [place], [place] [id number] HTN, goal below 140/90 Allergies Active Allergy Reactions Criticality Noted Date Comments Amlodipine Tachycardia 07/12/2017 documented as of this encounter (statuses as of 03/31/2024) Medications Furosemide 40 MG Oral Tablet (Lasix)Indicatio [...] needed 150 g 2 01/15/20 23 Active Cetirizine HCl 10 MG Oral Tablet (ZyrTEC) TAKE 1 TABLET BY MOUTH EVERY DAY IN THE MORNING 90 Tablet 3 02/12/20 23 Active Rosuvastatin Calcium 10 MG Oral Tablet (Crestor)Indicat ions:Hyperlipide inocencio with target LDL less than 100 TAKE 1 TABLET BY MOUTH DAILY IN THE EVENING 90 Tablet 12/19/19 24 Active Ibuprofen 800 MG Oral Tablet (Motrin) TAKE 1 TABLET IN THE MORNING AND 1 TABLET AT NOON AND 1 TABLET BEFORE BEDTIME. WITH FOOD FOR PAIN. 90 Tablet 3 02/16/20 24 Active hydroCHLOROthiaz abdoul 25 MG Oral Tablet (Hydrodiuril)Ind ications:HTN, goal below 140/90 Take 1 Tablet by mouth in the morning. 90 Tablet 3 03/29/19 25 Active Lisinopril 40 MG Oral TabletIndication s:HTN, goal below 140/90 TAKE 1 TABLET BY MOUTH EVERY DAY IN THE MORNING 90 Tablet 1 03/31/19 25 Active Lisinopril 40 MG Oral TabletIndication s:HTN, goal below 140/90 Take 1 Tablet by mouth in the morning. 90 Tablet 3 04/23/19 24 025 Discontinued documented as of this encounter (statuses as of 03/31/2024) Active Problems Problem Noted Date Diagnosed Date [...] as of this encounter (statuses as of 03/31/2024) Resolved Problems Problem Noted Date Diagnosed Date Resolved Date Antineoplastic chemotherapy induced pancytopenia 02/17/2018 12/08/2021 Food insecurity 11/02/2017 02/03/2024 Overview: Per [facility] Protocol Chemotherapy-induced neuropathy 09/13/2017 12/08/2021 documented as of this encounter (statuses as of 03/31/2024) Immunizations Name Administration Dates Next Due COVID-19 [...] Author No 02/01/2018 11:40 AM EST Marbella Pinzon RN * Are you blind or do [...] encounter Miscellaneous Notes * Telephone Encounter - Mariama Roy [facility] - 03/31/2024 10:06 AM EST Signed Prescriptions: Disp Refills Lisinopril 40 MG Oral Tablet 90 Tab*1 Sig: TAKE 1 TABLET BY MOUTH EVERY DAY IN THE MORNINGAuthorizing Provider: LAZARO COYLE User: MARIAMA ROY- * Telephone Encounter - Mariama Roy [facility] - 03/31/2024 10:03 AM EST BP high at last ov on 03/29/2024, hctz added patient forgot to take Lisinopril the day of ov, per Dr. Coyle: HTN, goal below 140/90-accelerated. Add hydrochlorothiazide 25 mg daily that he can take in the morning with his lisinopril 40 mg daily. Of note is he did not tolerate amlodipine in the past due to tachycardia. Recommended he tried to reduce sodium/salt in his diet. He will need a basic metabolic panel as well as urine for microalbumin in about a week's time after starting hydrochlorothiazide andwill also do a nurse blood pressure check at that time. I highly encouraged him to buy a home automated blood pressure monitor Thank you, Doron Roy, PharmD Clinical Pharmacist [facility] 03/31/24 10:05 AM [phone] documented in this encounter Plan of Treatment Upcoming Encounters Date Type Department Care Team (Latest Contact Info) Description 04/07/2024 9:30 AM EST Nurse Only Ancillary Department, Lita Ramirez [address] [place] [address] Lita Nurse [address] [place] [address] 04/07/2024 9:50 AM EST Laboratory Laboratory, Lita Ramirez [address] [place] [address] Lita Laboratory [address] [place] [address] 05/03/2024 2:30 PM EST Office Visit Hematology/Oncolog y [facility] [place] [address] [facility] [phone] Mary Garcia CRNP [address] [place] [address] [address] [place] [address] 07/07/2024 10:20 AM EDT Office Visit Family [facility], Lita [address] [place] [address] Lazaro Coyle MD [address] [place] [address] 07/28/2024 9:00 AM EDT [facility] [address] [place] [phone] Lazaro Coyle MD [address] [place] [address] 09/07/2024 11:45 AM EDT Hospital Encounter ENDO [facility], Endoscopy Room [facility] [address] [place] [phone] Rosalee Edmonds MD [address] [place] [address] 09/07/2024 11:45 AM EDT - 09/07/2024 12:15 PM EDT Surgery ENDO [facility], Endoscopy Room [facility] [address] [place] [address] Rosalee Edmonds MD [address] [place] [address] COLONOSCOPY FLEXIBLE PROXIMAL DIAGNOSTIC Scheduled Procedures Name Priority Associated Diagnoses Date/Ti [...] this encounter Medical Devices Implanted Type Area Research Mechanic Device Identifier Shelf Expiration Date Model / Serial / Lot Port Power Mri W/8fr Cath - [id number] Implanted:Qty : 1 on 05/31/2017 by Nir Bailey MD at OR [facility] Right: Internal Jugular CR BARD : PERIPHERAL VASCULAR 01/19/2019 [id number] / / [id number] documented as of this encounter Visit Diagnoses Diagnosis HTN, goal below 140/90 Unspecified essential hypertension History of colon polyps Personal history of [...] Power of Attor lissette? No Care Teams Six Horse Hitch Driver Relationship Specialty Start Date End Date Lazaro Coyle MD [address] [place] [address] PCP - General Family Medicine 03/03/24 documented as of this encounter
--- OUTSIDE RECORDS SUMMARY | 2024-07-11 19:19 | External Medical Summary | Summary of Care ---
Author Name Unknown Organization [facility] Address [address] [place] [address] Phone [phone] Care Team Providers Care Bailing Machine Operator Name Role Phone Festus Coyle MD Primary Care Provider [phone] Encounter Details Date Type Department Care Team (Late st Contact Info) Description 04/12/2024 Population Health External Data Unspecified Department Allergies Active Allergy Reactions Criticality Noted Date Comments Amlodipine Tachycardia 07/12/2017 documented as of this encounter (statuses as of 04/12/2024) Medications Furosemide 40 MG Oral Tablet (Lasix)Indication [...] as of this encounter (statuses as of 04/12/2024) Active Problems Problem Noted Date Diagnosed Date [...] as of this encounter (statuses as of 04/12/2024) Resolved Problems Problem Noted Date Diagnosed Date Resolved Date Antineoplastic chemotherapy induced pancytopenia 02/17/2018 12/08/2021 Food insecurity 11/02/2017 02/03/2024 Overview: Per [facility] Protocol Chemotherapy-induced neuropathy 09/13/2017 12/08/2021 documented as of this encounter (statuses as of 04/12/2024) Immunizations Name Administration Dates Next Due COVID-19 mRNA, LNP-s, No Pre serve, 2-Dose Series ([employer]) 07/10/2020,06/19/2020 DTaP Dipth/Tet/Acell Pertussis (Infanrix), Peds 10/05/2019,05/18/2019,03/06/2019 [...] 02/01/2018 11:40 AM Marbella Georges, ENEIDA * Because of a physical, mental, or [...] Department Care Team (Latest Contact Info) Description 05/03/2024 2:30 PM EST Office Visit Hematology/Oncology [facility] [place] [facility] [phone] Mary Garcia CRNP [address] [place] [address] 07/07/2024 10:20 AM EDT [facility] [place] [phone] Festus Coyle MD [address] [facility] [place] [address] 07/28/2024 9:00 AM EDT Office Visit [facility] Lita [address] [place] [phone] Festus Coyle MD 226 [facility] [place] [address] 09/07/2024 11:45 AM EDT Hospital Encounter ENDO [facility], Endoscopy Room [facility] [address] [place] [phone] Rosalee Edmonds MD [address] [place] [address] [place] [address] 09/07/2024 11:45 AM EDT - 09/07/2024 12:15 PM EDT Surgery ENDO [facility], Endoscopy Room [facility] [address] [place] [address] Rosalee Edmonds MD [address] [place] [address] COLONOSCOPY FLEXIBLE PROXIMAL DIAGNOSTIC Scheduled Procedures Name [...] from 1980 (Patient Declined After Education) GFR 04/07/2025 04/07/2024, 12/20, 10/29/2022, Additional history exists Albumin/Creatinine Ratio 04/07/2027 04/07/2024 Diabetes Screening 04/07/2027 04/07/2024, 1 , 10/29/2022, Additional history exists Lipid Panel 01/06/2029 01/07/2024, [...] this encounter Medical Devices Implanted Type Area Tree Killer Device Identifier Shelf Expiration Date Model / Serial / Lot Port Power Mri W/8fr Cath - [id number] Implanted:Qty : 1 on 05/31/2017 by Nir Bailey MD at OR [facility] Right: Internal Jugular CR BARD : PERIPHERAL VASCULAR 01/19/2019 [id number] / / [id number] documented as of this encounter Advance Directives [...] Power of Attor lissette? No Care Teams Bailing Machine Operator Relationship Specialty Start Date End Date Festus Coyle MD [address] [place] [address] PCP - General Family Medicine 03/03/24 documented as of this encounter
--- OUTSIDE RECORDS SUMMARY | 2024-07-11 19:19 | External Medical Summary | Summary of Care ---
Author Name Unknown Organization [facility] Address [address] [place] [address] Phone [phone] Care Team Providers Care Auditing Coder Name Role Phone Festus Coyle MD Primary Care Provider [phone] Encounter Details Date Type Department Care Team (Late st Contact Info) Description 03/13/2024 Telephone Pre Surgery Center, [facility] [address] [facility] [place] [address] Rosalee Edmonds MD [facility] [place] [address] Allergies Active Allergy Reactions Criticality Noted Date Comments Amlodipine Tachycardia 07/12/2017 documented as of this encounter (statuses as of 03/14/2024) Medications Furosemide 40 MG Oral Tablet (Lasix)Indicatio ns:Edema of lower extremity,Histor y of diffuse large B-cell lymphoma TAKE ONE-HALF TABLET BY MOUTH DAILY NEEDED FOR SWELLING 15 Tablet 1 2 Active Additional Information Patient not taking.Reported on 07/02/2023 Diclofenac Sodium 1 % External Gel (Voltaren)Indica [...] 3 3 Active Lisinopril 40 MG Oral TabletIndication s:HTN, [...] FOR PAIN. 90 Tablet 3 4 Active documented as of this encounter (statuses as of 03/14/2024) Active Problems Problem Noted Date Diagnosed Date [...] as of this encounter (statuses as of 03/14/2024) Resolved Problems Problem Noted Date Diagnosed Date Resolved Date Antineoplastic chemotherapy induced pancytopenia 02/17/2018 12/08/2021 Food insecurity 11/02/2017 02/03/2024 Overview: Per [facility] Protocol Chemotherapy-induced neuropathy 09/13/2017 12/08/2021 documented as of this encounter (statuses as of 03/14/2024) Immunizations Name Administration Dates Next Due COVID-19 mRNA, LNP-s, No Pre serve, 2-Dose Series ([employer]) 07/10/2020,06/19/2020 DTaP Dipth/Tet/Acell Pertussis (Infanrix), Peds 10/05/2019,05/18/2019,03/06/2019 [...] No 01/07/2024 Does the household have a [facility] hospital[facility] source of income? (Household - for [...] Information Value Date Recorded Sex Assigned at Not on file Legal Sex Male 4:24 PM EDT Gender Identity Not on file Sexual Orientation Not on file documented as of this encounter Functional Status [...] encounter Miscellaneous Notes * Telephone Encounter - Lili Grimes OSA - 03/14/2024 9:55 AM EST Lmm for pt to return call by 03/20/24 by GARRETT Mccarty 03/14/2024 9:56 AM * Telephone Encounter - Samantha Matias RN - 03/13/2024 8:28 AM EST Called patient for pre anesthesia evaluation for upcoming procedure scheduled for 03-21-24 ,no answer. Left message on machine /request return call /TE to GI schedulers documented in this encounter Plan of Treatment Upcoming Encounters Date Type Department Care Team (Latest Contact Info) Description 03/21/2024 9:30 AM EST Hospital Encounter ENDO [facility], Endoscopy Room [facility] [address] [place] [address] Rosalee Edmonds MD [address] [place] [address] 03/21/2024 9:30 AM EST - 03/21/2024 10:00 AM EST Surgery ENDO [facility], Endoscopy Room [facility] [address] [place] [phone] Rosalee Edmonds MD [address] [place] [id number] COLONOSCOPY FLEXIBLE PROXIMAL DIAGNOSTIC 07/07/2024 10:20 AM EDT Office Visit [facility], [address] [place] [address] Festus Coyle MD [address] [place] [address] Scheduled Procedures Name Priority Associated Diagnoses Date/Ti me COLONOSCOPY FLEXIBLE PROXIMAL DIAGNOSTIC History of colon polyps Special screening for malignant neoplasms, colon 03/21/2024 9:30 AM EST Health Maintenance Due Date Last Done Comments Albumin/Creatinine Ratio 1980 Cologuard 07/31/2007 Fecal Occult Blood Test 07/31/2007 Sigmoidoscopy 07/31/2007 Colonoscopy 06/17/2022 06/17/2017, 06/17/2017 Colorectal Cancer Screening 06/17/2022 Depression Screening 07/01/2024 07/02/2023 Pneumococcal Vaccine: Pediatrics (0 to 5 Years) and At-Risk Patients (6 to 64 Years) (3 of 3 - PPSV23, PCV20 or [...] this encounter Medical Devices Implanted Type Area Solder Making Supervisor Device Identifier Shelf Expiration Date Model / Serial / Lot Port Power Mri W/8fr Cath - [id number] Implanted:Qty : 1 on 05/31/2017 by Nir Bailey MD at OR [facility] Right: Internal Jugular CR BARD : PERIPHERAL VASCULAR 01/19/2019 [id number] / / [id number] documented as of this encounter Advance Directives [...] Power of Attor lissette? No Care Teams Auditing Coder Relationship Specialty Start Date End Date Festus Coyle MD [address] [place] [address] PCP - General Family Medicine 03/03/24 documented as of this encounter
--- OUTSIDE RECORDS SUMMARY | 2024-07-11 19:19 | External Medical Summary | Summary of Care ---
Author Name Unknown Organization [facility] Address [address] [place] [address] Phone [phone] Care Team Providers Care Fruit Harvest Machine Operator Name Role Phone Festus Coyle MD Primary Care Provider [phone] Reason for Visit * Reason Onset Date Comments Nurse Documentation 04/07/2024 Encounter Details Date Type Department Care Team (Late st Contact Info) Description 04/07/2024 Telephone [facility] [address] [place] [address] Festus Coyle MD [address] [place] [address] Nurse Documentation Allergies Active Allergy Reactions Criticality Noted Date Comments Amlodipine Tachycardia 07/12/2017 documented as of this encounter (statuses as of 04/13/2024) Medications Furosemide 40 MG Oral Tablet (Lasix)Indication [...] as of this encounter (statuses as of 04/13/2024) Active Problems Problem Noted Date Diagnosed Date [...] as of this encounter (statuses as of 04/13/2024) Resolved Problems Problem Noted Date Diagnosed Date Resolved Date Antineoplastic chemotherapy induced pancytopenia 02/17/2018 12/08/2021 Food insecurity 11/02/2017 02/03/2024 Overview: Per [facility] Protocol Chemotherapy-induced neuropathy 09/13/2017 12/08/2021 documented as of this encounter (statuses as of 04/13/2024) Immunizations Name Administration Dates Next Due COVID-19 mRNA, LNP-s, No Pre serve, 2-Dose Series ([employer]) 07/10/2020,06/19/2020 DTaP Dipth/Tet/Acell Pertussis (Infanrix), Peds 10/05/2019,05/18/2019,03/06/2019 [...] No 01/07/2024 Does the household have a [facility] source of income? (Household - for ages [...] encounter Miscellaneous Notes * Telephone Encounter - Rox Calabrese LPN - 04/13/2024 1:33 PM EST Called pt. He is aware and verbalized understanding. * Telephone Encounter - Elena Veras PA-C - 04/13/2024 12:18 PM EST That looks better Please continue with what he has been doing My name is Elena Veras PA-C, I am a [facility] Inbox[facility] helping your PCP (primary care provider) with their electronic inbox. Elena Veras PA-C 04/13/2024 12:18 PM * Telephone Encounter - Lexi Soto LPN - 04/12/2024 1:19 PM EST Contacted patient and he was told of below message and did get a cuff and has been taking his BP 3 times a day. BP today was 132/76 * Telephone Encounter - Festus Coyle MD - 04/07/2024 1:30 PM EST Notify: I recommend he do nurse BP check again 1 week or he can purchase a home BP monitor. * Telephone Encounter - Lexi Soto LPN - 04/07/2024 9:37 AM EST Pt here for nurse visit for blood pressure check due to medication change and elevated blood pressure at last office visit. B/P 142/98 Pulse 80 BP Readings from Last 4 Encounters: 03/29/24 (!) 185/116 01/07/24 132/92 07/02/23 162/98 04/23/23 142/88 Telephone encounter made about this visit to provider. Patient aware that our office will call them back if there is a change with their medication or treatment, otherwise, no phone call will be made back to the patient. documented in this encounter Plan of Treatment Upcoming Encounters Date Type Department Care Team (Latest Contact Info) Description 05/03/2024 2:30 PM EST Office Visit Hematology/Oncology [facility] [place] [address] [facility] [phone] Mary Garcia, SHELL [address] [facility] [place] [address] 07/07/2024 10:20 AM EDT [facility] [address] [place] [address] Festus Coyle MD [address] [place] [id number] 07/28/2024 9:00 AM EDT [facility] [address] [place] [address] Festus Coyle MD [address] [place] [address] 09/07/2024 11:45 AM EDT Hospital Encounter ENDO [facility], Endoscopy Room [facility] [address] [place] [phone] Rosalee Edmonds MD [address] [place], [place] [phone] 09/07/2024 11:45 AM EDT - 09/07/2024 12:15 PM EDT Surgery ENDO [facility], Endoscopy Room [facility] [address] [place] [address] Rosalee Edmonds MD [address] [place], [place] [id number] COLONOSCOPY FLEXIBLE PROXIMAL DIAGNOSTIC Scheduled Procedures Name [...] this encounter Medical Devices Implanted Type Area Builder'S Labourer Device Identifier Shelf Expiration Date Model / Serial / Lot Port Power Mri W/8fr Cath - [id number] Implanted:Qty : 1 on 05/31/2017 by Nir Bailey MD at OR [facility] Right: Internal Jugular CR BARD : PERIPHERAL VASCULAR 01/19/2019 [id number] / / [id number] documented as of this encounter Advance Directives [...] Power of Attor lissette? No Care Teams Fruit Harvest Machine Operator Relationship Specialty Start Date End Date Festus Coyle MD [address] [place] [address] PCP - General Family Medicine 03/03/24 documented as of this encounter
--- OUTSIDE RECORDS SUMMARY | 2024-07-11 19:19 | External Medical Summary | Summary of Care ---
Author Name Unknown Organization [facility] Address [address] [place] [address] Phone [phone] Care Team Providers Care Plastic And Reconstructive Surgeon Name Role Phone Lazaro Coyle MD Primary Care Provider [phone] Reason for Visit * Reason Onset Date Comments Medication Refill 04/03/2024 Encounter Details Date Type Department Care Team (Late st Contact Info) Description 04/03/2024 Refill [facility] [place] [address] [facility] [place] [address] Marsha Mccoy MD 226 [facility] [place] [address] Allergies Active Allergy Reactions Criticality Noted Date Comments Amlodipine Tachycardia 07/12/2017 documented as of this encounter (statuses as of 04/04/2024) Medications Furosemide 40 MG Oral Tablet (Lasix)Indicatio [...] FOR PAIN. 90 Tablet 3 4 Active hydroCHLOROthiaz abdoul 25 MG Oral Tablet (Hydrodiuril)Ind ications:HTN, goal below 140/90 Take 1 Tablet by mouth in the morning. 90 Tablet 3 5 Active Lisinopril 40 MG Oral TabletIndication s:HTN, goal below 140/90 TAKE 1 TABLET BY MOUTH EVERY DAY IN THE MORNING 90 Tablet 1 5 Active Cetirizine HCl 10 MG Oral Tablet (ZyrTEC) TAKE 1 TABLET BY MOUTH EVERY DAY IN THE MORNING 90 Tablet 2 5 Active Cetirizine HCl 10 MG Oral Tablet (ZyrTEC) TAKE 1 TABLET BY MOUTH EVERY DAY IN THE MORNING 90 Tablet 3 3 04/03/19 25 Discontin ued(Refil l) documented as of this encounter (statuses as of 04/04/2024) Active Problems Problem Noted Date Diagnosed Date [...] as of this encounter (statuses as of 04/04/2024) Resolved Problems Problem Noted Date Diagnosed Date Resolved Date Antineoplastic chemotherapy induced pancytopenia 02/17/2018 12/08/2021 Food insecurity 11/02/2017 02/03/2024 Overview: Per [facility] Protocol Chemotherapy-induced neuropathy 09/13/2017 12/08/2021 documented as of this encounter (statuses as of 04/04/2024) Immunizations Name Administration Dates Next Due COVID-19 [...] encounter Miscellaneous Notes * Telephone Encounter - Chanda Burgos RPh - 04/04/2024 11:38 AM ESTSigned Prescriptions: Disp Refills Cetirizine HCl 10 MG Oral Tablet (ZyrTEC) 90 Tab*2 Sig: TAKE 1 TABLET BY MOUTH EVERY DAY IN THE MORNINGAuthorizing Provider: LAZARO COYLE User: PETER BURGOS A documented in this encounter Plan of Treatment Upcoming Encounters Date Type Department Care Team (Latest Contact Info) Description 04/07/2024 9:30 AM EST Nurse Only Ancillary Department, Lita Ramirez [address] [place] [address] [place] [address] 04/07/2024 9:50 AM EST Laboratory Laboratory, [place] [address] [place], Laboratory [place] [address] 05/03/2024 2:30 PM EST Office Visit Hematology/Oncolog y [facility] [place] [address] [facility], [place] [address] Mary Garcia CRNP [address] [place] [address] 07/07/2024 10:20 AM EDT [facility] [address] Lazaro Coyle MD [address] [place], [place] [address] 07/28/2024 9:00 AM EDT [facility] [place] [phone] Lazaro Coyle MD [address] [place] [address] 09/07/2024 11:45 AM EDT Hospital Encounter ENDO [facility], Endoscopy Room [facility] [address] [place] [address] Rosalee Edmonds MD [address] [place] [address] [place] [address] 09/07/2024 11:45 AM EDT - 09/07/2024 12:15 PM EDT Surgery ENDO [facility], Endoscopy Room [facility] [address] [place] [address] Rosalee Edmonds MD [address] [...] this encounter Medical Devices Implanted Type Area Telemetry Nurse Device Identifier Shelf Expiration Date Model / Serial / Lot Port Power Mri W/8fr Cath - [id number] Implanted:Qty : 1 on 05/31/2017 by Nir Bailey MD at [facility] Right: Internal Jugular CR BARD : PERIPHERAL VASCULAR 01/19/2019 [id number] / / [id number] documented as of this encounter Advance Directives [...] Power of Attor lissette? No Care Teams Plastic And Reconstructive Surgeon Relationship Specialty Start Date End Date Lazaro Coyle MD [address] [place] [address] PCP - General Family Medicine 03/03/24 documented as of this encounter
--- OUTSIDE RECORDS SUMMARY | 2024-07-11 19:19 | External Medical Summary | Summary of Care ---
Author Name Unknown Organization [facility] Address [address] [place] [address] Phone [phone] Care Team Providers Care Topper Packer Name Role Phone Festus Coyle MD Primary Care Provider [phone] Reason for Visit * Reason Onset Date Comments Nurse Documentation 04/07/2024 Encounter Details Date Type Department Care Team (Late st Contact Info) Description 04/07/2024 Telephone [facility] [address] [place] [address] Festus Coyle MD [address] [place] [address] Nurse Documentation Allergies Active Allergy [...] mRNA, LNP-s, No Pre serve, 2-Dose Series (MusicIP) 07/10/2020,06/19/2020 DTaP Dipth/Tet/Acell Pertussis (Infanrix), Peds 10/05/2019,05/18/2019,03/06/2019 [...] No 01/07/2024 [facility] the [facility] [...] encounter Miscellaneous Notes * Telephone Encounter - Lexi Soto LPN [...] 05/03/2024 2:30 PM EST Office [facility] [place] [facility] [address] Mary Garcia CRNP [address] [place] [address] 07/07/2024 10:20 AM EDT Office Visit [facility] [place] [address] [place] [address] Festus Coyle MD [address] [facility] [place] [address] 07/28/2024 9:00 AM EDT Office Visit [facility] Lita Jaz[place] [address] [place] [address] Festus Coyle MD [address] [facility] [place] [address] 09/07/2024 11:45 AM EDT Hospital Encounter ENDO [facility], Endoscopy Room [facility] [address] [place] [phone] Rosalee Edmonds MD [address] [place] [address] 09/07/2024 11:45 AM EDT - 09/07/2024 12:15 PM EDT Surgery ENDO [facility], Endoscopy Room [facility] [address] [place] [phone] Rosalee Edmonds MD [address] [place] [id number] COLONOSCOPY FLEXIBLE PROXIMAL DIAGNOSTIC Scheduled Procedures Name [...] this encounter Medical Devices Implanted Type Area Medical I D Sales Device Identifier Shelf Expiration Date Model / Serial / Lot Port Power Mri W/8fr Cath - [id number] Implanted:Qty : 1 on 05/31/2017 by Nir Bailey MD at OR [facility] Right: Internal Jugular CR BARD : PERIPHERAL VASCULAR 01/19/2019 [id number] / / [id number] documented as of this encounter Advance Directives [...] Power of Attor lissette? No Care Teams Topper Packer Relationship Specialty Start Date End Date Festus Coyle MD [address] [facility] [place] [address] PCP - General Family Medicine 03/03/24 documented as of this encounter
--- OUTSIDE RECORDS SUMMARY | 2024-07-11 19:19 | External Medical Summary | Summary of Care ---
Author Name Unknown Organization [facility] Address [address] [place] [address] Phone [phone] Care Team Providers Care Glass Belt Sander Name Role Phone Lazaro Garibay MD Primary Care Provider [phone] Reason for Visit * Reason Comments eRx-Medication Refill Encounter Details Date Type Department Care Team (Late st Contact Info) Description 02/16/[address] [facility] [address] [place] [address] Lazaro Garibay MD [address] [place] [address] Allergies Active Allergy Reactions Criticality Noted Date Comments Amlodipine Tachycardia 07/12/2017 documented as of this encounter (statuses as of 02/16/2024) Medications Furosemide 40 MG Oral Tablet (Lasix)Indicati ons:Edema of lower extremity,Histo ry of diffuse large B-cell lymphoma TAKE ONE-HALF TABLET BY MOUTH DAILY NEEDED FOR SWELLING 15 Tablet 1 12/25/19 22 Active Additional Information Patient not taking.Reported on 07/02/2023 Diclofenac Sodium 1 % External Gel (Voltaren)Indic [...] MORNING 90 Tablet 3 02/12/20 23 Active Lisinopril 40 MG Oral TabletIndicatio ns:HTN, goal below 140/90 Take 1 Tablet by mouth in the morning. 90 Tablet 3 04/23/19 24 Active Rosuvastatin Calcium 10 MG Oral Tablet (Crestor)Indica tions:Hyperlipi demia with target LDL less than 100 TAKE 1 TABLET BY MOUTH DAILY IN THE EVENING 90 Tablet 12/19/19 24 Active Ibuprofen 800 MG Oral Tablet (Motrin) TAKE 1 TABLET IN THE MORNING AND 1 TABLET AT NOON AND 1 TABLET BEFORE BEDTIME. WITH FOOD FOR PAIN. 90 Tablet 3 02/16/20 24 Active Ibuprofen 800 MG Oral Tablet (Motrin) TAKE 1 TABLET IN THE MORNING AND 1 TABLET AT NOON AND 1 TABLET BEFORE BEDTIME. WITH FOOD FOR PAIN. 90 Tablet 2 11/17/19 24 024 Discontinued documented as of this encounter (statuses as of 02/16/2024) Active Problems Problem Noted Date Diagnosed Date [...] as of this encounter (statuses as of 02/16/2024) Resolved Problems Problem Noted Date Diagnosed Date Resolved Date Antineoplastic chemotherapy induced pancytopenia 02/17/2018 12/08/2021 Food insecurity 11/02/2017 02/03/2024 Overview: Per [facility] Protocol Chemotherapy-induced neuropathy 09/13/2017 12/08/2021 documented as of this encounter (statuses as of 02/16/2024) Immunizations Name Administration Dates Next Due COVID-19 mRNA, LNP-s, No Pre serve, 2-Dose Series (Semantics3) 07/10/2020,06/19/2020 DTaP Dipth/Tet/Acell Pertussis (Infanrix), Peds 10/05/2019,05/18/2019,03/06/2019 [...] 02/01/2018 11:40 AM Marbella Georges, ENEIDA * Are you blind or do you have serious difficulty seeing, even when wearing glasses? Answer Date of Assessment Author No 02/01/2018 11:40 AM Marbella Georges, RN * Do you have serious difficulty [...] Miscellaneous Notes * Telephone Encounter - Tonny Casillas [facility] - 02/16/2024 3:04 PM ESTSigned Prescriptions: Disp Refills Ibuprofen 800 MG Oral Tablet (Motrin) 90 Tab*3 Sig: TAKE 1 TABLET IN THE MORNING AND 1 TABLET AT NOON AND 1 TABLET BEFORE BEDTIME. WITH FOOD FOR PAIN.Authorizing Provider: LAZARO GARIBAY User: TONNY CASILLAS documented in this encounter Plan of Treatment Upcoming Encounters Date Type Department Care Team (Latest Contact Info) Description 03/21/2024 9:30 AM EST Hospital Encounter ENDO [facility], Endoscopy Room [facility] [address] [place] [phone] Rosalee Edmonds MD [address] [place] [address] 03/21/2024 9:30 AM EST - 03/21/2024 10:00 AM EST Surgery ENDO [facility], Endoscopy Room [facility] [address] [place] [phone] Rosalee Edmonds MD [address] [place] [address] COLONOSCOPY FLEXIBLE PROXIMAL DIAGNOSTIC 07/07/2024 10:20 AM EDT Office Visit [facility] [address] [facility] [address] [place] [address] Lazaro Garibay MD [address] [facility] [address] [place] [address] Scheduled Procedures Name Priority Associated Diagnoses Date/Ti [...] to 64 Years) (3 of 3 - PPSV23 or PCV20) 10/04/2024 10/05/2019, 03/06/2019, 11/04/2018, Additional history exists [...] this encounter Medical Devices Implanted Type Area Note Specialist Device Identifier Shelf Expiration Date Model / Serial / Lot Port Power Mri W/8fr Cath - [id number] Implanted:Qty : 1 on 05/31/2017 by Nir Bailey MD at [facility] Right: Internal Jugular CR BARD : PERIPHERAL VASCULAR 01/19/2019 [id number] / / [id number] documented as of this encounter Advance Directives [...] Power of Attor lissette? No Care Teams Glass Belt Sander Relationship Specialty Start Date End Date Lazaro Garibay MD [address] [facility] [place] [address] PCP - General Family Medicine 09/29/23 documented as of this encounter
--- OUTSIDE RECORDS SUMMARY | 2024-07-11 19:19 | External Medical Summary ---
Author Name Unknown Address Unknown Organization K01:[facility]ORAT[facility] - [facility] [address] [facility] [address] Laboratory Report Ordering Provider Test Date Status LANI WILLIS 04/07/2024 09:10:50 Final Observation Date Value Abnormality Reference (Units ) Status BUN 04/07/2024 09:10:50 19 6-20 (mg/dL) Final Creatinine 04/07/2024 09:10:50 1.2 0.6-1.2 (mg/dL) Final Glomerular filtration rate/1.73 sq M.predicted [Volume Rate/Area] in Serum, Plasma or Blood by Creatinine-based formula (CKD-EPI) 04/07/2024 09:10:50 68 >=60 (mL/min) Final eGFR is calculated based on the CKD-EPI 2020 equation. Sodium 04/07/2024 09:10:50 142 135-146 (m mol/L) Final Potassium 04/07/2024 09:10:50 4.0 3.5-5.1 (m mol/L) Final Cl 04/07/2024 09:10:50 102 98-107 (mm ol/L) Final CO2 04/07/2024 09:10:50 30 22-32 (mmo l/L) Final Anion gap 04/07/2024 09:10:50 10 7-15 (mmol /L) Final Glucose 04/07/2024 09:10:50 104 70-120 (mg /dL) Final Calcium 04/07/2024 09:10:50 10.1 8.4-10.2 ( mg/dL) Final Performing Location LABORATORY [facility] - [address] [facility] [address]
--- OUTSIDE RECORDS SUMMARY | 2024-07-11 19:19 | External Medical Summary | Summary of Care ---
Author Name Unknown Organization [facility] Address [address] [place] [address] Phone [phone] Care Team Providers Care Analyst Market Intelligence Name Role Phone Festus Coyle MD Primary Care Provider [phone] Encounter Details Date Type Department Care Team (Late st Contact Info) Description 04/07/2024 9:30 AM EST Nurse Only Ancillary Department, [address] [place] [phone] Lita, Nurse [facility] [place] [phone] Arrived Allergies Active Allergy Reactions Criticality Noted Date Comments Amlodipine Tachycardia 07/12/2017 documented as of this encounter (statuses as of 04/07/2024) Medications Furosemide 40 MG Oral Tablet (Lasix)Indication [...] as of this encounter (statuses as of 04/07/2024) Active Problems Problem Noted Date Diagnosed Date [...] as of this encounter (statuses as of 04/07/2024) Resolved Problems Problem Noted Date Diagnosed Date Resolved Date Antineoplastic chemotherapy induced pancytopenia 02/17/2018 12/08/2021 Food insecurity 11/02/2017 02/03/2024 Overview: Per [facility] Protocol Chemotherapy-induced neuropathy 09/13/2017 12/08/2021 documented as of this encounter (statuses as of 04/07/2024) Immunizations Name Administration Dates Next Due COVID-19 mRNA, LNP-s, No Pre serve, 2-Dose Series (Zodio) 07/10/2020,06/19/2020 DTaP Dipth/Tet/Acell Pertussis (Infanrix), Peds 10/05/2019,05/18/2019,03/06/2019 [...] Sign Reading Time Taken Comments Blood Pressure 142/98 04/07/2024 9:35 AM EST Pulse 80 04/07/2024 9:35 AM EST Temperature - - Respiratory Rate - - Oxygen Saturation - - Inhaled Oxygen Concentration - - Weight - - Height - - Body Mass Index - - documented in this encounter Functional Status * [...] documented in this encounter Progress Notes * Lexi Soto LPN - 04/07/2024 9:35 AM EST Pt here for nurse visit [...] PM EST Office Visit Hematology/Oncology [place] [address] [facility] [place] [address] Mary Garcia CRNP [address] [place] [address] [place] [address] 07/07/2024 10:20 AM EDT [facility] [place] [phone] Festus Coyle MD [address] [place] [address] 07/28/2024 9:00 AM EDT [facility] [address] [place] [phone] Festus Coyle MD [address] [place] [address] 09/07/2024 11:45 AM EDT Hospital Encounter ENDO [facility], Endoscopy Room [facility] [address] [place] [phone] Rosalee Edmonds MD [address] [place] [address] 09/07/2024 11:45 AM EDT - 09/07/2024 12:15 PM EDT Surgery ENDO [facility], Endoscopy Room [facility] [address] [place] [phone] Rosalee Edmonds MD [address] [place] [address] COLONOSCOPY FLEXIBLE PROXIMAL DIAGNOSTIC Scheduled Procedures Name [...] this encounter Medical Devices Implanted Type Area General Maintenance Mechanic Device Identifier Shelf Expiration Date Model / Serial / Lot Port Power Mri W/8fr Cath - [id number] Implanted:Qty : 1 on 05/31/2017 by Nir Bailey MD at OR [facility] Right: Internal Jugular CR BARD : PERIPHERAL VASCULAR 01/19/2019 [id number] / / [id number] documented as of this encounter Advance Directives [...] Power of Attor lissette? No Care Teams Analyst Market Intelligence Relationship Specialty Start Date End Date Festus Coyle MD [address] [place] [address] PCP - General Family Medicine 03/03/24 documented as of this encounter
--- OUTSIDE RECORDS SUMMARY | 2024-07-11 19:19 | External Medical Summary | Summary of Care ---
Author Name Unknown Organization [facility] Address [address] [place] [address] Phone [phone] Care Team Providers Care Academic Computing Director Name Role Phone Festus Coyle MD Primary Care Provider Reason for Visit * Reason Comments Outpatient Testing Encounter Details Date Type Department Care Team (Late st Contact Info) Description 04/07/2024 9:50 AM EST Laboratory Laboratory, [facility] [address] [place] [address] [facility] [address] [place] [address] HTN, goal below 140/90 Allergies Active Allergy [...] mRNA, LNP-s, No Pre serve, 2-Dose Series (Bright Things) 07/10/2020,06/19/2020 DTaP Dipth/Tet/Acell Pertussis (Infanrix), Peds 10/05/2019,05/18/2019,03/06/2019 [...] No 01/07/2024 Does the household have a [facility] source [facility] income? (Household - for ages [...] [place] [address] Lita Nurse [address] [place] [address] Arrived 05/03/2024 2:30 PM EST Office Visit Hematology/Oncology [facility] 200 [place] [address] Mary Garcia CRNP [address] [place] [address] 07/07/2024 10:20 AM EDT [facility] [address] [place] [address] Festus Coyle MD [address] [place] [address] 07/28/2024 9:00 AM EDT Office Visit [facility] Lita Eason [address] [place] [address] Festus Coyle MD [address] [facility] [place] [address] 09/07/2024 11:45 AM EDT Hospital Encounter ENDO [facility], Endoscopy Room [facility] [address] [place], [place] [phone] Rosalee Edmonds MD [address] [place] [address] 09/07/2024 11:45 AM EDT - 09/07/2024 12:15 PM EDT Surgery ENDO [facility], Endoscopy Room [facility] [address] [place] [address] Rosalee Edmonds MD [address] [place] [address] COLONOSCOPY FLEXIBLE PROXIMAL DIAGNOSTIC Pending Results Name Type Priority Associated Diagnoses Date /Time BASIC METABOLIC PANEL Lab Routine HTN, goal below 140/90 04/07/2024 9:10 AM EST ALBUMIN / CREATININE RATIO, URINE Lab Routine HTN, goal below 140/90 04/07/2024 9:10 AM EST Scheduled Procedures Name Priority Associated Diagnoses [...] this encounter Medical Devices Implanted Type Area Locomotive Crane Operator Helper Device Identifier Shelf Expiration Date Model / Serial / Lot Port Power Mri W/8fr Cath - [id number] Implanted:Qty : 1 on 05/31/2017 by Nir Bailey MD at [facility] Right: Internal Jugular CR BARD : PERIPHERAL VASCULAR 01/19/2019 [id number] / / [id number] documented as of this encounter Visit Diagnoses [...] Power of Attor lissette? No Care Teams Academic Computing Director Relationship Specialty Start Date End Date Festus Coyle MD [address] [place] [address] PCP - General Family Medicine 03/03/24 documented as of this encounter
--- OUTSIDE RECORDS SUMMARY | 2024-07-11 19:19 | External Medical Summary | Summary of Care ---
Author Name Unknown Organization [facility] Address [address] [place] [address] Phone [phone] Care Team Providers Care Dealer Relationship Manager Name Role Phone Festus Coyle MD Primary Care Provider [phone] Reason for Visit * Reason Comments Acute Encounter Details Date Type Department Care Team ([facility] st Contact Info) Description 02/23/2024 3:20 PM EST Telemedicine Family [facility] [address] [place] [phone] Lj Vasquez PA-C [address] [place] [address] Viral URI with cough* Allergies Active Allergy Reactions Criticality Noted Date Comments Amlodipine Tachycardia 07/12/2017 documented as of this encounter (statuses as of 02/24/2024) Medications Furosemide 40 MG Oral Tablet (Lasix)Indicatio [...] as of this encounter (statuses as of 02/24/2024) Active Problems Problem Noted Date Diagnosed Date [...] as of this encounter (statuses as of 02/24/2024) Resolved Problems Problem Noted Date Diagnosed Date Resolved Date Antineoplastic chemotherapy induced pancytopenia 02/17/2018 12/08/2021 Food insecurity 11/02/2017 02/03/2024 Overview: Per [facility] Protocol Chemotherapy-induced neuropathy 09/13/2017 12/08/2021 documented as of this encounter (statuses as of 02/24/2024) Immunizations Name Administration Dates Next Due COVID-19 mRNA, LNP-s, No Pre serve, 2-Dose Series (Health[employer]) 07/10/2020,06/19/2020 DTaP Dipth/Tet/Acell Pertussis (Infanrix), Peds 10/05/2019,05/18/2019,03/06/2019 [...] No 01/07/2024 Does the [facility] have a [facility]? (Household - for [...] documented in this encounter Progress Notes * Lj Vasquez PA-C - 02/23/2024 3:19 PM EST Patient location: HOME. I was in a hospital or clinic location. After connecting through miDriveo,patient was verified with two unique identifiers. 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 Methods to assure confidentiality were taken. Patient acknowledged consent and understanding of p rivacy and security of the Telemedicine visit. The patient agreed to participate. SUBJECTIVE: Jaime Giordano is an 63 year old male who presents with symptoms including congestion, cough, headache, sputum production. Onset 3 day(s), gradually worsening since that time. He hasn't tried Patient denies fever, SOB. Current Outpatient Medications Medication Sig Dispense Refill Furosemide 40 MG Oral Tablet (Lasix) TAKE ONE-HALF TABLET BY MOUTH DAILY NEEDED FOR SWELLING (Patient not taking: Reported on 07/02/2023) 15 Tablet 1 Diclofenac Sodium 1 % External Gel (Voltaren) Apply topically to affected area 2 times a day as needed for Pain, Mild. Apply 4 grams to left hip twice a day as needed - pain, . Apply to left hip twice a day as needed 150 g 2 Cetirizine HCl 10 MG Oral Tablet (ZyrTEC) TAKE 1 TABLET BY MOUTH EVERY DAY IN THE MORNING 90 Tablet3 Lisinopril 40 MG Oral Tablet Take 1 Tablet by mouth in the morning. 90 Tablet 3 Rosuvastatin Calcium 10 MG Oral Tablet (Crestor) TAKE 1 TABLET BY MOUTH DAILY IN THE EVENING 90 Tablet 0 Ibuprofen 800 MG Oral Tablet (Motrin) TAKE 1 TABLET IN THE MORNING AND 1 TABLET AT NOON AND 1 TABLET BEFORE BEDTIME. WITH FOOD FOR PAIN. 90 Tablet 3 No current facility-administered medications for this visit. Review of patient's allergies indicates: Allergen Reactions Amlodipine Tachycardia Social History Tobacco Use Smoking status: Never Passive exposure: Never Smokeless tobacco: Never Substance Use Topics Alcohol use: No Vaping/E-Cigarette Use Vaping/E-Cigarette Use Never Assessed Vaping/E-Cigarette Substances Vaping/E-Cigarette Devices Objective: There were no vitals taken for this visit. Physical Exam: General: alert and no distress ASSESSMENT: Viral URI with cough (Primary) - Symptomatic treatment with fluids, vaporizer, acetaminophen. - OTC cold medications (Coricidin HBP) as directed - Recheck as needed for persistence, worsening, appearance of new symptoms. Lj Vasquez PA-C documented in this encounter Plan of Treatment Upcoming Encounters Date Type Department Care Team (Latest Contact Info) Description 03/21/2024 9:30 AM EST Hospital Encounter [facility]O [facility], Endoscopy Room [facility] [address] [facility] [place] [phone] Rosalee Edmonds MD [address] [place] [address] 03/21/2024 9:30 AM EST - 03/21/2024 10:00 AM EST Surgery ENDO [facility], Endoscopy Room [facility] [address] [place] [phone] Rosalee Edmonds MD [address] [place] [address] COLONOSCOPY FLEXIBLE PROXIMAL DIAGNOSTIC 07/07/2024 10:20 AM EDT [facility] [address] [place] [address] Festus Coyle MD [address] [place] [address] Scheduled Procedures Name Priority Associated Diagnoses Date/Ti [...] this encounter Medical Devices Implanted Type Area Mobile Lab Technician Device Identifier Shelf Expiration Date Model / Serial / Lot Port Power Mri W/8fr Cath - [id number] Implanted:Qty : 1 on 05/31/2017 by Nir Bailey MD at OR [facility] Right: Internal Jugular CR BARD : PERIPHERAL VASCULAR 01/19/2019 [id number] / / [id number] documented as of this encounter Visit Diagnoses Diagnosis Viral URI with cough- Primary Acute upper respiratory infections of unspecified site History of colon polyps Personal history of [...] Power of Attor lissette? No Care Teams Dealer Relationship Manager Relationship Specialty Start Date End Date Festus Coyle MD 132 [facility] [place] [address] PCP - General Family Medicine 09/29/23 documented as of this encounter
--- OUTSIDE RECORDS SUMMARY | 2024-07-11 19:19 | External Medical Summary | Summary of Care ---
Author Name Unknown Organization [facility] Address [address] [place] [address] Phone [phone] Care Team Providers Care Toxicology Teacher Name Role Phone Festus Coyle MD Primary Care Provider [phone] Reason for Visit * Reason Comments Acute Pt here today due to having health concerns. Pt states he has a cold and congestion. Encounter Details Date Type Department Care Team (Late st Contact Info) Description 03/29/2024 7:40 AM EST [facility] [address] [place] [address] Festus Coyle MD [address] [place] [address] HTN, goal below 140/90*; Diffuse large B-cell lymphoma of intra-abdominal lymph nodes (HCC); Diffuse large cell lymphoma in remission Allergies Active Allergy Reactions Criticality Noted Date [...] Sign Reading Time Taken Comments Blood Pressure 185/116 03/29/2024 7:27 AM EST pt states he sometimes he forgets if he took his medication. He states he did not take it today. Pulse 68 03/29/2024 7:27 AM EST Temperature 36.4 °C (97.6 °F) 03/29/2024 7 :27 AM EST Respiratory Rate 16 03/29/2024 7:27 AM EST Oxygen Saturation 98% 03/29/2024 7:2 7 AM EST Inhaled Oxygen Concentration - - Weight 90.9 kg (200 lb 4.8 oz) 03/29/2024 7:27 AM EST Height 174.6 cm (5' 8.75") 03/29/2024 7 :27 AM EST Body Mass Index 29.79 03/29/2024 7:27 AM EST documented in this [...] Progress Notes * Festus Coyle MD - 03/29/2024 7:37 AM EST Subjective: Jaime Giordano is a 63 year old male. Chief Complaint Patient presents with Acute Pt here today due to having health concerns. Pt states he has a cold and congestion. HPI: 63-year-old seen today as a routine with known history of diffuse large B- cell lymphoma statuspost bone marrow transplant hypertension and hyperlipidemia. He had URI symptoms beginning shortly before Med. Did a video visit on March 14 he was thought to have a viral URI. Coricidin was recommended for symptomatic care. He does not feel as if he is cleared the infection completely as he still has some congestion but he knows he is much improved. Has not had fever. Has had some posterior headache. Missed a couple of his blood pressure medications just recently. He normally follows with Dr. Arredondo in Oncology on an annual basis but his appointment last summer was canceled it does not look like was ever rescheduled. He was scheduled for routine colonoscopy in February but that was canceled in it does not appear that that is been rescheduled. He did do blood work in December including a comprehensive metabolic panel lipid panel PSA and CBC which were all unremarkable. Patient Active Problem List Diagnosis Diffuse large B-cell lymphoma of intra-abdominal lymph nodes (HCC) Encounter for antineoplastic chemotherapy HTN, goal below 140/90 Bone marrow transplant status (HCC) History of diffuse large B-cell lymphoma Diffuse large cell lymphoma in remission Hyperlipidemia with target LDL less than 100 Current Outpatient Medications Medication Sig Dispense Refill [...] patient's allergies indicates: Allergen Reactions Amlodipine Tachycardia Objective: BP (!) 185/116 Comment: pt states he sometimes he forgets if he took his medication. He states he did not take it today. | Pulse 68 | Temp 97.6 °F (36.4 °C) (Infrared ) | Resp 16 | Ht 5' 8.75" (1.746 m) | Wt 200 lb 4.8 oz (90.9 kg) | SpO2 98% | BMI 29.79 kg/m² | BSA 2.1 m² Physical Exam: CONST: alert, pleasant, no acute distress HEAD: normocephalic, atraumatic NECK: supple, soft, no adenopathy Eyes - PERRLA, EOM'I OROPHARYNX: clear, no swelling or erythema, moist CV: regular rate and rhythm, no murmur CHEST: clear to auscultation bilaterally, no rales or wheezing ABD: soft, non tender, non distended, no masses or hepatosplenomegaly EXT: Trace bilateral ankle edema, no joint swelling or deformities, ASSESSMENT/PLAN: Diffuse large B-cell lymphoma of intra-abdominal lymph nodes (HCC)-she will be rescheduled to routinely see Dr. Arredondo for routine annual follow-up Diffuse large cell lymphoma in remission-see above HTN, goal below 140/90-accelerated. Add hydrochlorothiazide 25 [...] buy a home automated blood pressure monitor Colon cancer screening-will reschedule for colonoscopy 0 although no urgency See again in about 4 months' time Follow-up: Return in about 4 months (around 07/27/2024). | Check-out note: Please schedule with Dr Mark Arredondo for routine care- anytime in next 6 months Rtc about 1 week for blood work and nurse visiting for BP check Needs rescheduled for colonoscopy as his Dec apt was cancelled. Spring would be good Festus Coyle MD documented in this encounter Nursing Notes * Erica Post LPN - 03/29/2024 7:26 AM EST Chief Complaint Patient presents with Acute Pt here today due to having health concerns. Pt states he has a cold and congestion. documented in this encounter Plan of Treatment Upcoming Encounters Date Type Department Care Team (Late st Contact Info) Description 04/07/2024 9:30 AM EST Nurse Only Ancillary Department, [place] [address] [place] [address] Lita, Nurse [address] [place] [address] 04/07/2024 9:50 AM EST Laboratory Laboratory, [place] [address] [facility] [address] [place] [address] 05/03/2024 2:30 PM EST Office Visit Hematology/Oncology [facility] [address] [facility], [place] [phone] Mary Garcia CRNP [address] [place] [address] 07/07/2024 10:20 AM EDT Office Visit [facility] [place] [address] Festus Coyle MD [address] [place] [address] 07/28/2024 9:00 AM EDT Office Visit [facility] [place] [address] Festus Coyle MD [address] [place] [address] Scheduled Orders Name Type Priority Associated Diagnoses Orde r Schedule BASIC METABOLIC PANEL Lab Routine HTN, goal below 140/90 Expected: 03/29/2024 (Approximate), Expires: 03/29/2025 ALBUMIN / CREATININE RATIO, URINE Lab Routine HTN, goal below 140/90 Expected: 03/29/2024 (Approximate), Expires: 03/29/2025 Health Maintenance Due Date Last Done Comments [...] this encounter Medical Devices Implanted Type Area Device Repair Technician Device Identifier Shelf Expiration Date Model / Serial / Lot Port Power Mri W/8fr Cath - [id number] Implanted:Qty : 1 on 05/31/2017 by Nir Bailey MD at OR [facility] Right: Internal Jugular CR BARD : PERIPHERAL VASCULAR 01/19/2019 [id number] / / [id number] documented as of this encounter Visit Diagnoses Diagnosis HTN, goal below 140/90- Primary Unspecified essential hypertension Diffuse large B-cell lymphoma of intra-abdominal lymph nodes (HCC) Other malignant lymphomas of intra-abdominal lymph nodes Diffuse large cell lymphoma in remission Other malignant lymphomas, unspecified site, extranodal and solid organ sites documented in this encounter Advance Directives * [...] Power of Attor lissette? No Care Teams Toxicology Teacher Relationship Specialty Start Date End Date Festus Coyle MD [address] [place] [address] PCP - General Family Medicine 03/03/24 documented as of this encounter
--- OUTSIDE RECORDS SUMMARY | 2024-07-11 19:19 | External Medical Summary | Summary of Care ---
Author Name Unknown Organization [facility] Address [address] [place] [address] Phone [phone] Care Team Providers Care Psychology Fellow Name Role Phone Festus Cyole MD Primary Care Provider [phone] Reason for Visit * Reason Onset Date Comments Nurse Documentation 04/07/2024 Encounter Details Date Type Department Care Team (Late st Contact Info) Description 04/07/2024 Telephone [facility] [address] [place] [address] Festus Coyle MD [address] [place] [address] Nurse Documentation Allergies Active Allergy [...] mRNA, LNP-s, No Pre serve, 2-Dose Series (Souqalmal) 07/10/2020,06/19/2020 DTaP Dipth/Tet/Acell Pertussis (Infanrix), Peds 10/05/2019,05/18/2019,03/06/2019 [...] No 01/07/2024 Does the household have a [facility] source of income? (Household - for [...] encounter Miscellaneous Notes * Telephone Encounter - Elena Veras PA-C [...] 05/03/2024 2:30 PM EST Office Visit H[facility] [place] [address] [facility] [phone] Mary Garcia CRNP [address] [facility] [place] [address] 07/07/2024 10:20 AM EDT Office Visit [facility] Lita Eason [address] [place] [address] Festus Coyle MD [address] [place] [address] 07/28/2024 9:00 AM EDT Office Visit [facility] Lita [address] [place] [address] Festus Coyle MD [address] [place] [address] 09/07/2024 11:45 AM EDT Hospital Encounter [facility] Endoscopy Room [facility] [address] [facility] [place] [phone] Rosalee Edmonds MD [address] [place] [address] 09/07/2024 11:45 AM EDT - 09/07/2024 12:15 PM EDT Surgery ENDO [facility], Endoscopy Room [facility] [address] [place] [id number] Rosalee Edmonds MD [address] [place] [address] COLONOSCOPY FLEXIBLE PROXIMAL DIAGNOSTIC Scheduled Procedures Name [...] this encounter Medical Devices Implanted Type Area Audio Visual Equipment Rental Clerk Device Identifier Shelf Expiration Date Model / Serial / Lot Port Power Mri W/8fr Cath - [id number] Implanted:Qty : 1 on 05/31/2017 by Nir Bailey MD at OR [facility] Right: Internal Jugular CR BARD : PERIPHERAL VASCULAR 01/19/2019 [id number] / / [id number] documented as of this encounter Advance Directives [...] Power of Attor lissette? No Care Teams Psychology Fellow Relationship Specialty Start Date End Date Festus Coyle MD [address] [place] [address] PCP - General Family Medicine 03/03/24 documented as of this encounter
--- OUTSIDE RECORDS SUMMARY | 2024-07-11 19:19 | External Medical Summary ---
Author Name Unknown Address Unknown Organization [id number]:[facility] - [address] [place] [id number] Laboratory Report Ordering Provider Test Date Status LANI WILLIS 04/07/2024 09:10:50 Final Normal: <30 mg/g creatinine< br/>High: 30-300 mg/g creatinine
Very High: >300 mg/g creatinine
Nephrotic: >2200 mg/g creatinine Observation Date Value Abnormality Reference (Units ) Status Albumin, Urine 04/07/2024 09:10:50 <1.20 (mg/dL) Final Creatinine, Urine 04/07/2024 09:10:50 115 (mg/dL) Final Albumin/Creatinine [Mass Ratio] in Urine 04/07/2024 09:10:50 <10 <30 (mg/g Creat) Final Performing Location [facility] - [address] [place] [id number]
--- NOTE | 2024-07-11 19:29 | CT Scan Report ---
CT ABDOMEN and PELVIS without INTRAVENOUS CONTRAST HISTORY: Abdominal pain TECHNIQUE: CT abdomen and pelvis without contrast. IV CONTRAST: None ENTERIC CONTRAST: None. COMPARISON: CT abdomen pelvis February 12, 2017 FINDINGS: LIVER: No focal lesion identified in this noncontrast study. GALLBLADDER/BILIARY: Unremarkable gallbladder. No abnormal biliary dilatation. SPLEEN: Unremarkable. PANCREAS: Unremarkable. ADRENALS: Unremarkable. KIDNEYS: Evaluation for small stones is limited due to excreted contrast opacifying the renal pelvi and ureters within the septation, there is moderate left-sided hydroureteronephrosis without a definite obstructing calcified stone. There are multifocal areas of luminal narrowing of the left ureter, for sample in the proximal segment (series 2, image 37) and at the UVJ (image 65). PERITONEUM/RETROPERITONEUM. No lymphadenopathy by size criteria. No aortic aneurysm. GASTROINTESTINAL: No obstruction. Normal appendix. Colonic diverticulosis without evidence of diverticulitis. REPRODUCTIVE: Prostamegaly with enlarged nodular prostate impinging upon the urinary bladder outlet. URINARY BLADDER opacified by excreted contrast. Anterior urinary bladder diverticulum. ABDOMINAL WALL: Large right inguinal hernia containing a short segment of the large bowel. BONES: No acute findings. IMPRESSION: Moderate left-sided hydroureteronephrosis. Evaluation for small stones is limited due to excreted contrast opacifying the renal pelvi and ureters as well as the urinary bladder entirely. Within this limitation, no definite obstructing stone is detected. Multifocal areas of the ureteral narrowing are present on the left side which may be due to stricturing. Cystoscopy may be considered if there is concern for active processes at the ureteral orifices Nodular prostate gland impinging upon the urinary bladder resulting in chronic outlet obstruction. Recommend correlation with PSA. If there is concern for prostatic malignancy, MRI may be obtained with prostate protocol. Electronically signed by Rojelio Babb 07-11-2024 7:29 PM
[2024-07-11] MEDS: ACETAMINOPHEN 325 MG TAB PO SCH (20:23)
[2024-07-11] MEDS: ENOXAPARIN INJ 40 MG/0.4 ML SYR SQ SCH (20:24)
[2024-07-11] MEDS: ROSUVASTATIN CALCIUM 10 MG TAB PO SCH (20:26)
[2024-07-11] MEDS: GABAPENTIN 100 MG CAP PO SCH (20:26)
[2024-07-12 08:08] LABS: Hematocrit (blood only) 33.7 % (42.0-52.0); Hemoglobin 11.2 g/dl (14.0-18.0); Mean Corpuscular Hemoglobin 28.2 pg (25.0-34.0); Mean Corpuscular Hgb Conc 33.2 g/dL (32.0-36.0); Mean Corpuscular Volume 84.9 fL (80.0-100.0); Mean Platelet Volume 10.1 fL (9.4-12.4); Platelet Count 172 K/uL (130-400); RDW Coefficient of Variation 16.7 % (11.5-14.5); RDW Standard Deviation 52.2 fL (36.4-46.3); Red Blood Count 3.97 M/uL (4.70-6.10); White Blood Count 4.27 K/ul (4.8-10.8)
[2024-07-12 08:30] LABS: BUN Creatinine Ratio 11.2 (10-20); Calcium 8.9 mg/dl (8.6-10.3); Creatinine Clr Calc Pharmacy 74.9 ml/min; Potassium 3.6 mmol/L (3.5-5.1)
--- NOTE | 2024-07-12 08:49 | Cardiology Consultation ---
Date of Consultation July 12, 2024 Assessment & Plan (1) Hypertensive urgency: (2) Abnormal EKG: (3) Hypokalemia: (4) Bilateral lower extremity edema: Plan Patient admitted with several weeks of SOB, increased LE edema, abnormal EKG and atypical chest pain. Hypertensive urgency noted on admission -Did not take morning lisinopril yesterday -Initially treated with IV hydralazine -Resume oral lisinopril 40 mg daily -previously intolerant to amlodipine as outpatient -Previously intolerant to HCTZ 25 mg daily as outpatient (due to dizziness/orthostasis) -Hypokalemic on admission and in the past - start spironolactone 12.5 mg daily for BP and fluid management -Mild LVH on echo/grade I diastolic dysfunction Dyspnea/atypical chest pain -EKG with with widened QRS, T wave abnormality in inferior and lateral leads. Possible LVH with strain -HS troponin negative x3 -Echo with preserved LVEF, no wall motion abnormalities, mild LVH -Recommend nuclear lexiscan stress test tomorrow AM after BP improved Dyspnea/LE edema -Possibly due to recent gabapentin use. -BNP normal -Chest xray clear -Symptoms improved with IV lasix 20 mg -Appears euvolemic at this time. Weight down 5 lbs since admission with interval improvement in his SOB/edema. -Hold additional IV diuretic -spironolactone added due to HTN, edema, and chronically low potassium. Case discussed with Dr. Bartlett. Further recommendations pending his evaluation. I spent a total of 60 minutes on the date of service in preparation, delivery, and documentation of the care provided to this patient, excluding any time spent in the performance of separately billed services. Franchesca Colbert PA-C Department of Cardiology, [facility] This chart was completed in part utilizing Speech Voice Recognition Software. Grammatical errors, random word insertions, pronoun errors, and incomplete sentences are an occasional consequence of this system due to software limitations, ambient noise, and hardware issues. Any formal questions or concerns about the content, text, or information contained within the body of this dictation should be directly addressed to the provider for clarification. Supervising Physician Co-Signing Physician Notes I have personally performed a history and physical examination on the patient. I have reviewed the advance practitioner's documentation, and I agree with, and take responsibility for the plan of care. 63 year old male admitted with shortness of breath, chest discomfort, lower extremity edema. Clinically improved with IV diuresis. Edema possibly exacerbated by recent prescription of gabapentin. Echocardiogram demonstrated mild concentric left ventricular hypertrophy with preserved LV systolic function. ECG with nonspecific interventricular conduction delay, LVH with secondary ST-T wave changes. No evidence of acute coronary syndrome. Recommendations: * Hold additional IV Lasix at this time with evidence of left-sided hydronephrosis * Consider urology consultation. * Aldactone added * Resume lisinopril * Hold gabapentin * lexiscan nuclear stress test in AM I spent a total of 35 minutes on the date of service in preparation, delivery, and documentation of the care provided to this patient, excluding any time spent in the performance of separately billed services. Medhat Bartlett DO, [facility] History of Present Illness Reason for Consultation: Abnormal EKG; HTN urgency; SOB/edema; CP Requesting Physician: Hortensia Culver Attending Physician: Dr. Bartlett History of Present Illness Patient is a 63 year old male who presented to [facility] yesterday from his PCP office with complaints of intermittent pleuritic chest pain, edema, SOB, and an abnormal EKG. EKG at PCP office demonstrating NSR with LAD, widening QRS, T wave inversion in inferior and lateral leads. New compared with 2018 EKG. Upon arrival the ER, patient found to be significantly hypertensive, consistent with hypertensive urgency BP > 180/100. He apparently had not taken his antihypertensive meds that day. Treated with IV hydralazine on admission. Troponin negative x3. Repeat EKG on admission demonstrating NSR with possible LVH and T wave abnormality in inferior and lateral leads. Due to mild LE edema, he was started on IV lasix 20 mg on arrival and good diuresis noted overnight. BP trending down. Mild anemia also noted with Hbg of 11.4 (previously 12.8 in Apr) Echo completed this morning demonstrating normal LVEF at 55-60%, no wall motion abnormalities. Apical Trabeculations noted. No significant valvular disease. Grade I diastolic dysfunction. At time of consult, patient resting in bed comfortably. No orthopnea. Edema improved. No SOB at rest. He lost 5 lbs since yesterday per scales and per his report. He reports mild pleuritic chest pain, but only with certain movements and deep inspiration on occasion. He denies exertional chest pain. He admits to worsening shortness of breath with exertion and climbing hills. This is more pronounced over the last few months. His BP has been running high as an outpatient. HCTZ was added as an outpatient at 25 mg daily but he reported dizziness with positional changes and this was discontinued. He denies prior cardiovascular history. He reports history of a "hole in his heart". 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 Hypertension 2. Dyslipidemia 3. DDD and disc protusion of L3-L4 - Recently started on Gabapentin 4. history of lymphoma several years ago, in remission. Treated with chemotherapy. Allergies Allergy/AdvReac Type Severity Reaction Status Date / Time No Known Allergies Allergy Verified 01/14/22 22:51 Home Medications Medication Instructions Recorded Confirmed Type cetirizine 10 mg tablet 10 mg PO DAILY 07/11/24 07/11/24 History diclofenac sodium 1 % topical gel 1 ea topical BID PRN Pain 07/11/24 07/11/24 History gabapentin 100 mg capsule 200 mg PO HS 07/11/24 07/11/24 History ibuprofen 800 mg tablet 800 mg PO TID 07/11/24 07/11/24 History lisinopril 40 mg tablet 40 mg PO DAILY 07/11/24 07/11/24 History rosuvastatin 10 mg tablet 10 mg PO HS 07/11/24 07/11/24 History Patient History Medical History (Updated 07/12/24 @ 10:42 by Franchesca Colbert PA-C) History of diverticulitis Positive PPD Acute diverticulitis Intraabdominal mass Lymphoma Surgical History No pertinent past surgical history Social History (Updated 07/11/24 @ 16:34 by SHELL Sanz) Smoking Status: Never smoker Hx Alcohol Use: No Hx Substance Use: No Preferred Language: Mohawk Communication Ability: Effective 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 Beliefs That Will Affect Care: None marital status: Current Living Situation: Significant Other Other Information That Helps Us Care for You: No Feels Safe at Home: Yes Safety Concerns: Feels Safe At This Time Assistive Devices: Denture - Upper, Denture - Lower and Glasses Review of Systems Review of Systems: All systems reviewed & are unremarkable except as noted in HPI & below Physical Exam Constitutional: WD/WN, vitals as above average body habitus; no acute distress Neck: normal visual inspection Respiratory: normal respiratory effort; no labored breathing and no cough Auscultation: lungs clear to auscultation bilaterally and + rales; no crackles, no rhonchi and no wheezes Cardiovascular: Rate/Rhythm: regular rate and regular rhythm Heart Sounds: normal S1 and normal S2; no murmur Vessels: no JVD Extremities: + edema (trace pretibial edema b/l ) Gastrointestinal (Abdomen): normal bowel sounds, soft, nontender, no hepatosplenomegaly Neurologic: PERRL, EOMI, accommodation nl, no face palsy, no dysarthria Results & Data Vital Signs (Past 12 Hours) Vital Signs Temp Pulse Pulse Resp BP Pulse Ox O2 Del Method 07/12/24 02:43 36.5 C 76 18 125/76 98 Room Air 07/11/24 22:24 36.8 C 88 18 148/76 H 97 Room Air 07/11/24 22:04 77 07/11/24 21:00 Room Air Laboratory Results Cardiac Enzymes 07/11/24 07/11/24 07/12/24 Range/Units 13:14 19:37 00:51 AST 12 L (13-39) U/L Troponin I High Sens < 2.3 3.3 6.2 (0-20) pg/ml B-Natriuretic Peptide 55 (0-100) pg/ml Coagulation 07/11/24 Range/Units 13:14 PT 11.3 (9.0-12.0) Seconds APTT 30 (21-31) Seconds B-Natriuretic Peptide 55 (0-100) pg/ml CBC 07/11/24 07/12/24 Range/Units 13:14 07:36 WBC 4.09 L 4.27 L (4.8-10.8) K/ul RBC 4.12 L 3.97 L (4.70-6.10) M/uL Hgb 11.4 L 11.2 L (14.0-18.0) g/dl Hct 34.9 L 33.7 L (42.0-52.0) % Plt Count 164 172 (130-400) K/uL Neut # (Auto) 2.58 (1.40-6.50) K/uL Lymph # (Auto) 1.15 L (1.20-3.40) K/uL [place] # (Auto) 0.31 (0.11-0.59) K/uL Eos # (Auto) 0.02 (0.00-0.50) K/uL Baso # (Auto) 0.01 (0.00-0.20) K/uL Comprehensive Metabolic Panel 07/11/24 07/12/24 Range/Units 13:14 07:36 Sodium 143 143 (136-145) mmol/L Potassium 3.2 L 3.6 (3.5-5.1) mmol/L Chloride 107 108 H (98-107) mmol/L Carbon Dioxide 31 30 (21-32) mmol/L BUN 11 12 (6-23) mg/dl Creatinine 1.05 1.07 (0.6-1.4) mg/dl Glucose 90 90 (70-99(Fasting)) mg/dl Calcium 8.9 8.9 (8.6-10.3) mg/dl AST 12 L (13-39) U/L ALT 12 (7-52) U/L Alkaline Phosphatase 55 (34-104) U/L Total Protein 6.3 (6.0-8.3) gm/dl Albumin 3.9 (3.4-5.0) gm/dl Intake and Output 07/11/24 07/12/24 07/12/24 22:59 06:59 14:59 Intake Total 200 / 200 Output Total 1350 / 1750 400 / 1750 Balance -1150 / -1550 -400 / -1550 Intake: Oral 200 / 200 Output: Urine 1350 / 1750 400 / 1750 Other: Other Intake Source npo Weight 91.8 kg 87.2 kg Weight Measurement Method Estimated by Patient Standing Scale Diagnostic Findings Telemetry reviewed: NSR in the 80's; He had one episode of sinus tachycardia in the middle of the night in the 130-140's. EKG reviewed from admission 07/11/24: NSR, LAD LVH T wave abnormality in inferior and lateral leads Repeat EKG this morning dated 07/12/24: NSR, LVH T wave abnormality in inferior and lateral leads Echo report reviewed: Normal normal LVEF at 55-60% Mild concentric LVH Apical trabeculations LV wall motion is normal Grade I diastolic dysfunction No significant valvular pathology. Chest X-Ray 07/11/24 13:05 FINDINGS: There is mild cardiomegaly without pulmonary vascular congestion. No effusion, consolidation, or pneumothorax. IMPRESSION: No acute findings. Venous Doppler Study 07/11/24 13:05 Impression: No evidence of left leg deep venous thrombosis Chest CTA 07/11/24 15:52 Impression: 1. No definite sign of pulmonary embolism 2. Mild bilateral lower lobe atelectasis 3. Partially visualized left hydronephrosis. CT of the abdomen and pelvis could be considered for further evaluation Prior outside data reviewed: EKG reviewed from Dec 2021: NSR, normal EKG No T wave abnormalities Echo report from Apr 2018: Interpretation Summary The primary indication after review was deemed appropriate and the examination was performed. Compared to last available study, there has been no interval change. Normal LV chamber size with mild concentric LVH. Normal LV systolic function without regional wall motion abnormality. Calculated LV ejection Fraction = 57% (bi-plane method of discs). Grade I diastolic dysfunction. Mild tricuspid regurgitation Medications Administered Current Inpatient Medications Acetaminophen (Acetaminophen 325 Mg Tab) 650 mg PO Q4H JER Stop: 08/10/24 19:10 Last Admin: 07/12/24 06:11 Dose: 650 mg Cetirizine HCl (Cetirizine Hcl 10 Mg Tablet) 10 mg PO DAILY JER Stop: 08/11/24 08:59 Enoxaparin Sodium (Enoxaparin Inj 40 Mg/0.4 Ml Syr) 40 mg SQ Q24H JER Stop: 08/10/24 19:10 Last Admin: 07/11/24 20:24 Dose: 40 mg Furosemide (Furosemide Inj 20 Mg/2 Ml Vial) 20 mg IV DAILY JER Stop: 08/11/24 08:59 Gabapentin (Gabapentin 100 Mg Cap) 200 mg PO HS JER Stop: 08/10/24 20:59 Last Admin: 07/11/24 20:26 Dose: 200 mg Hydralazine HCl (Hydralazine Hcl 20 Mg/Ml Vial) 10 mg IV Q4 PRN PRN Reason: Hypertension Stop: 08/10/24 15:51 Last Admin: 07/11/24 17:25 Dose: 10 mg Lisinopril (Lisinopril 40 Mg Tab) 40 mg PO DAILY JER Stop: 08/11/24 08:59 Nitroglycerin (Nitroglycerin Sl 0.4 Mg/Tab Tab) 0.4 mg SL Q5M PRN PRN Reason: Chest Pain Stop: 08/10/24 19:10 Oxycodone HCl (Oxycodone Hcl Ir 5 Mg Tab (Immediate Release)) 5 mg PO Q6 PRN PRN Reason: Mod-Sev Pain (Scale 4-10) Stop: 07/25/24 19:10 Polyethylene Glycol (Polyethylene (Miralax) 17 Gm Pack) 17 gm PO DAILY PRN PRN Reason: Constipation Stop: 08/10/24 19:10 Rosuvastatin Calcium (Rosuvastatin Calcium 10 Mg Tab) 10 mg PO HS JER Stop: 08/10/24 20:59 Last Admin: 07/11/24 20:26 Dose: 10 mg
[2024-07-12] MEDS: lisinopril 40 MG TAB PO SCH (09:53)
[2024-07-12] MEDS: FUROSEMIDE INJ 20 MG/2 ML VIAL IV SCH (09:54)
[2024-07-12] MEDS: CETIRIZINE HCL 10 MG TABLET PO SCH (09:54)
[2024-07-12] MEDS: oxyCODONE HCL IR 5 MG TAB (IMMEDIATE RELEASE) PO PRN (09:54)
--- NOTE | 2024-07-12 10:31 | Electrocardiogram Report ---
Test Reason : Blood Pressure : */* mmHG Vent. Rate : 75 BPM Atrial Rate : 75 BPM P-R Int : 178 ms QRS Dur : 112 ms QT Int : 380 ms P-R-T Axes : 75 -46 6 degrees QTcB Int : 424 ms Normal sinus rhythm with sinus arrhythmia Left anterior fascicular block Minimal voltage criteria for LVH, may be normal variant Nonspecific ST abnormality Abnormal ECG When compared with ECG of 11-Jul-2024 12:58, Minimal criteria for Septal infarct are no longer Present ST elevation now present in Anterior leads T wave inversion no longer evident in Lateral leads Confirmed by Orlin Metzger ([id number]) on 07/12/2024 10:31:05 AM Referred By: Marsha Mccoy Confirmed By: Orlin Metzger
[2024-07-12] MEDS: SPIRONOLACTONE 12.5 MG TAB PO SCH (11:16)
--- NOTE | 2024-07-12 14:55 | Urology Consultation ---
Date of Consultation July 12, 2024 Assessment & Plan (1) Hydronephrosis, left: 63-year-old male who was referred to the hospital by his PCP for abnormal EKG, chest pain, shortness of breath and bilateral lower extremity. He was admitted on 07/11/2024 for hypertensive urgency and further workup. Workup included chest CTA which was negative for PE but revealed a partially visualized left hydronephrosis. He had CT abdomen and pelvis for further evaluation. CTAP demonstrated left hydroureteronephrosis, no urinary calculi visualized but limited due to presence of contrast; an enlarged nodular prostate and findings suggestive of bladder outlet obstruction. Urology is consulted for hydronephrosis Patient afebrile, hypertensive Labs reviewedcreatinine 1.07, WBC 4.27, hemoglobin 11.2 Urinalysis on arrival was not suspicious for infection No flank pain at present Reports bothersome LUTS at baseline CT reviewed and discussed with patient Plan: No acute intervention at this time Recommend check postvoid residual bladder scan now, and then bladder scan prn If there is evidence of urinary retention, then recommend straight catheterization or placement of Smith catheter depending on findings Recommend check PSAorder placed Recommend outpatient follow-up for further workup of bladder outlet obstruction Can consider starting Flomax while inpatient Further recommendations pending PSA results will follow History of Present Illness Reason for Consultation: hydronephrosis Requesting Physician: Dr. Jameson Attending Physician: Gaetano Jameson MD History of Present Illness This is a 63-year-old male with past medical history of hypertension, hyperlipidemia, and lymphoma status post bone marrow transplant who was referred to the ED on 07/11/2024 by his PCP for evaluation of abnormal EKG as well as symptoms of worsening bilateral lower extremity edema and intermittent chest pain and shortness of breath on exertion. Patient was admitted for hypertensive urgency and further workup of his symptoms. Workup included chest CTA which was negative for PE but revealed partially visualized left hydronephrosis. He had a CT abdomen and pelvis for further evaluation. Urology is consulted today for hydronephrosis. CTAP without contrast personally reviewed. CT showed moderate left-sided hydroureteronephrosis, no obstructing stones visualized, but somewhat limited due to contrast present. There are a few areas of possible narrowing of the left ureter in the proximal ureter and at the UPJ. Prostate is enlarged and nodular impinging upon the bladder outlet. Bladder appears distended and there is a diverticulum on the anterior bladder. Urinalysis on arrival showed 1+ ketones, otherwise negative. Labs today reviewedWBC 4.27, hemoglobin 11.2, creatinine 1.07. Patient seen and examined at bedside. He is awake and resting in bed. Denies flank or suprapubic pain at present. He feels like he is emptying his bladder okay, but occasionally has sensation of incomplete emptying. Reports hesitancy and weak stream at times. No dysuria or hematuria. Notes urinary frequency during the day. No personal history of kidney stones. Reports his daughter has had kidney stones. Denies family history prostate cancer. He thinks he has had PSA testing done in the past through PCP. No fever or chills. Allergies Allergy/AdvReac Type Severity Reaction Status Date / Time No Known Allergies Allergy Verified 01/14/22 22:51 Home Medications Medication Instructions Recorded Confirmed Type cetirizine 10 mg tablet 10 mg PO DAILY 07/11/24 07/11/24 History diclofenac sodium 1 % topical gel 1 ea topical BID PRN Pain 07/11/24 07/11/24 History gabapentin 100 mg capsule 200 mg PO HS 07/11/24 07/11/24 History ibuprofen 800 mg tablet 800 mg PO TID 07/11/24 07/11/24 History lisinopril 40 mg tablet 40 mg PO DAILY 07/11/24 07/11/24 History rosuvastatin 10 mg tablet 10 mg PO HS 07/11/24 07/11/24 History Patient History Medical History History of diverticulitis Positive PPD Acute diverticulitis Intraabdominal mass Lymphoma Surgical History No pertinent past surgical history Social History Smoking Status: Never smoker Hx Alcohol Use: No Hx Substance Use: No Preferred Language: Vietnamese Communication Ability: Effective Filling Carrier Required: No Beliefs That Will Affect Care: None marital status: Current Living Situation: Significant Other Other Information That Helps Us Care for You: No Feels Safe at Home: Yes Safety Concerns: Feels Safe At This Time Assistive Devices: None Review of Systems Review of Systems: All systems reviewed & are unremarkable except as noted in HPI & below Physical Exam Constitutional: well developed and well nourished; no acute distress Respiratory: normal respiratory effort; no respiratory distress and no labored breathing Gastrointestinal (Abdomen): Inspection/Auscultation: abdomen normal to inspection Musculoskeletal: Head/Neck/Chest: normocephalic Neurologic: moves all extremities and awake Psychiatric: Orientation: alert and oriented x 3 Results & Data Vital Signs (Past 12 Hours) Vital Signs Temp Pulse Resp BP Pulse Ox O2 Del Method 07/12/24 10:27 36.5 C 67 18 154/90 H 97 Room Air 07/12/24 10:00 Room Air 07/12/24 09:55 36.5 C 62 17 154/78 H 98 Room Air PG Care Time/CCT Total # of Minutes Spent Total Time Spent with Patient: Total time spent is greater than 50% in coordination of care (as documented) at patient's floor/unit and/or counseling patient: Coding Level of Care Code 17308 IN/OBS CONSULT LVL 5,80M Diagnoses Hydronephrosis, left N13.30
--- NOTE | 2024-07-12 16:09 | Hospitalist Progress Note ---
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 Chest pain, SOB on exertion, bilateral LE edema CT chest negative for PE but revealed partially visualized left hydronephrosis - > ordered CT abdomen CT abdomen - Moderate left-sided hydroureteronephrosis. Multifocal areas of the ureteral narrowing are present on the left side which may be due to stricturing. Cystoscopy may be considered if there is concern for active processes at the ureteral orifices Nodular prostate gland impinging upon the urinary bladder resulting in chronic outlet obstruction. Recommend correlation with PSA. If there is concern for prostatic malignancy, MRI may be obtained with prostate protocol. EKG with T wave inversions in lateral and inferior leads Labs remarkable for anemia and hypokalemia Work up thus far includes negative CXR, venous doppler, BNP, troponin Echo obtained troponin x3 negative received IV lasix in ED Ni choudhary Cardiology consulted - Hypertensive urgency, atypical chest pain, no evidence of ACS Recommendations: * Hold additional IV Lasix at this time * Aldactone added * Resume lisinopril * Hold gabapentin * lexiscan nuclear stress test in AM Hypertensive urgency BPs 170-180/90-100s in ED Patient did not take BP meds prior to admission resume lisinopril, add spironolactone, as above Hypokalemia replace and monitor Hydronephrosis, and urinary retention - Smith cath placed - urology consulted - will need further outpt follow up - PSA pending Anemia Baseline Hgb 12-13 per records Patient asymptomatic Monitor, recheck CBC in am Hyperlipidemia Continue statin per home dosing Lumbar radiculopathy Follows with interventional pain MRI of lumbar spine in May 2024 demonstrating disc protrusion at L3-L4 Recently started on gabapentin - continue per home dosing Takes ibuprofen tid at home - holding while inpt Scheduled tylenol and PRN oxycodone for pain control Lymphoma in remission Surveillance Follows with Dr Arredondo yearly DVT Prophylaxis: subQ lovenox Code Status: FULL CODE - As per discussion at bedside with the patient. PCP: Dr Festus Coyle MD Admission and Anticipated Discharge Date Admission Date: July 11, 2024 Subjective Pt seen in follow up of chest pain, abnormal ECG Currently sitting up in bed in NAD, eating currently no chest pain, shortness of breath, no abd. pain however found + hydronephrosis on CT and urinary retention confirmed on floor -> plan to place Smith, urology consulted Cardiology consulted - BP meds adjusted and plan for stress test tmrw Review of Systems Review of Systems: All systems reviewed & are unremarkable except as noted in Subjective Physical Exam Physical Exam: General/Psych: WD/WN, sitting up in bed, NAD Head: normocephalic, atraumatic Eyes: normal inspection, PERRL ENT: external ear and nose normal Neck: normal visual inspection Respiratory: normal respiratory effort, lungs clear to auscultation, no wheeze/rales/rhonchi, no accessory muscle use Cardiovascular: regular rate and rhythm Extremities: + LE edema improved Abdomen/GI: normal bowel sounds, soft, nontender Neurologic/MSK: A+Ox3, motor strength 5/5, moves all extremities Skin: warm and dry Results & Data Results & Data Vital Signs (Past 12 Hours) Vital Signs Temp Pulse Pulse Resp BP Pulse Ox O2 Del Method 07/12/24 15:42 36.8 C 68 17 155/87 H 98 Room Air 07/12/24 15:00 71 07/12/24 10:27 36.5 C 67 18 154/90 H 97 Room Air 07/12/24 10:00 Room Air 07/12/24 09:55 36.5 C 62 17 154/78 H 98 Room Air 07/12/24 08:00 71 Laboratory Results 07/12/24 07/12/24 07/12/24 Range/Units 15:56 07:36 00:51 WBC 4.27 L (4.8-10.8) K/ul RBC 3.97 L (4.70-6.10) M/uL Hgb 11.2 L (14.0-18.0) g/dl Hct 33.7 L (42.0-52.0) % MCV 84.9 (80.0-100.0) fL MCH 28.2 (25.0-34.0) pg MCHC 33.2 (32.0-36.0) g/dL RDW Std Deviation 52.2 H (36.4-46.3) fL RDW Coeff of Josh 16.7 H (11.5-14.5) % Plt Count 172 (130-400) K/uL MPV 10.1 (9.4-12.4) fL Sodium 143 (136-145) mmol/L Potassium 3.6 (3.5-5.1) mmol/L Chloride 108 H (98-107) mmol/L Carbon Dioxide 30 (21-32) mmol/L Anion Gap 5 (3-11) BUN 12 (6-23) mg/dl Creatinine 1.07 (0.6-1.4) mg/dl Est Cr Clr Drug Dosing 74.9 ml/min eGFR 78.95 BUN/Creatinine Ratio 11.2 (10-20) Glucose 90 (70-99(Fasting)) mg/dl Calcium 8.9 (8.6-10.3) mg/dl Magnesium 2.0 (1.7-2.4) mg/dl Troponin I High Sens 6.2 (0-20) pg/ml Prostate Specific Ag Pending Urine Color Urine Appearance (Clear) Urine pH (4.5-7.5) Ur Specific [place] (1.000-1.030) Urine Protein (Negative) Urine Glucose (UA) (Negative) Urine Ketones (Negative) Urine Blood (Negative) Urine Nitrite (Negative) Urine Bilirubin (Negative) Urine Urobilinogen (Negative) Ur Leukocyte Esterase (Negative) 07/11/24 07/11/24 Range/Units 19:37 15:00 WBC (4.8-10.8) K/ul RBC (4.70-6.10) M/uL Hgb (14.0-18.0) g/dl Hct (42.0-52.0) % MCV (80.0-100.0) fL MCH (25.0-34.0) pg MCHC (32.0-36.0) g/dL RDW Std Deviation (36.4-46.3) fL RDW Coeff of Josh (11.5-14.5) % Plt Count (130-400) K/uL MPV (9.4-12.4) fL Sodium (136-145) mmol/L Potassium (3.5-5.1) mmol/L Chloride (98-107) mmol/L Carbon Dioxide (21-32) mmol/L Anion Gap (3-11) BUN (6-23) mg/dl Creatinine (0.6-1.4) mg/dl Est Cr Clr Drug Dosing ml/min eGFR BUN/Creatinine Ratio (10-20) Glucose (70-99(Fasting)) mg/dl Calcium (8.6-10.3) mg/dl Magnesium (1.7-2.4) mg/dl Troponin I High Sens 3.3 (0-20) pg/ml Prostate Specific Ag Urine Color Yellow Urine Appearance Clear (Clear) Urine pH 6.5 (4.5-7.5) Ur Specific [place] 1.014 (1.000-1.030) Urine Protein Negative (Negative) Urine Glucose (UA) Negative (Negative) Urine Ketones 1+ H (Negative) Urine Blood Negative (Negative) Urine Nitrite Negative (Negative) Urine Bilirubin Negative (Negative) Urine Urobilinogen Negative (Negative) Ur Leukocyte Esterase Negative (Negative) Medications Administered Current Inpatient Medications Acetaminophen (Acetaminophen 325 Mg Tab) 650 mg PO Q4H JER Stop: 08/10/24 19:10 Last Admin: 07/12/24 11:18 Dose: 650 mg Cetirizine HCl (Cetirizine Hcl 10 Mg Tablet) 10 mg PO DAILY JER Stop: 08/11/24 08:59 Last Admin: 07/12/24 09:54 Dose: 10 mg Enoxaparin Sodium (Enoxaparin Inj 40 Mg/0.4 Ml Syr) 40 mg SQ Q24H JER Stop: 08/10/24 19:10 Last Admin: 07/11/24 20:24 Dose: 40 mg Furosemide (Furosemide Inj 20 Mg/2 Ml Vial) 20 mg IV DAILY JER Stop: 08/11/24 08:59 Last Admin: 07/12/24 09:54 Dose: 20 mg Gabapentin (Gabapentin 100 Mg Cap) 200 mg PO HS JER Stop: 08/10/24 20:59 Last Admin: 07/11/24 20:26 Dose: 200 mg Hydralazine HCl (Hydralazine Hcl 20 Mg/Ml Vial) 10 mg IV Q4 PRN PRN Reason: Hypertension Stop: 08/10/24 15:51 Last Admin: 07/11/24 17:25 Dose: 10 mg Lisinopril (Lisinopril 40 Mg Tab) 40 mg PO DAILY [facility] Stop: 08/11/24 08:59 Last Admin: 07/12/24 09:53 Dose: 40 mg Nitroglycerin (Nitroglycerin Sl 0.4 Mg/Tab Tab) 0.4 mg SL Q5M PRN PRN Reason: Chest Pain Stop: 08/10/24 19:10 Oxycodone HCl (Oxycodone Hcl Ir 5 Mg Tab (Immediate Release)) 5 mg PO Q6 PRN PRN Reason: Mod-Sev Pain (Scale 4-10) Stop: 07/25/24 19:10 Last Admin: 07/12/24 09:54 Dose: 5 mg Polyethylene Glycol (Polyethylene (Miralax) 17 Gm Pack) 17 gm PO DAILY PRN PRN Reason: Constipation Stop: 08/10/24 19:10 Rosuvastatin Calcium (Rosuvastatin Calcium 10 Mg Tab) 10 mg PO HS [facility]1983 Stop: 08/10/24 20:59 Last Admin: 07/11/24 20:26 Dose: 10 mg Spironolactone (Spironolactone 12.5 Mg Tab) 12.5 mg PO DAILY [facility] Stop: 08/11/24 10:14 Last Admin: 07/12/24 11:16 Dose: 12.5 mg
[2024-07-12] MEDS ORDERED: FUROSEMIDE INJ 20 MG/2 ML VIAL IV ONE (17:00)
[2024-07-12] MEDS: KETOROLAC TROMETHAMINE 15 MG/ML VIAL IV ONE (18:30)
[2024-07-12 23:40] VITALS: TEMP 97.9
[2024-07-13 07:25] VITALS: RESP 16
[2024-07-13 07:58] LABS: Hematocrit (blood only) 33.2 % (42.0-52.0); Hemoglobin 10.9 g/dl (14.0-18.0); Mean Corpuscular Hemoglobin 27.9 pg (25.0-34.0); Mean Corpuscular Hgb Conc 32.8 g/dL (32.0-36.0); Mean Corpuscular Volume 85.1 fL (80.0-100.0); Mean Platelet Volume 9.6 fL (9.4-12.4); Platelet Count 162 K/uL (130-400); RDW Coefficient of Variation 16.7 % (11.5-14.5); RDW Standard Deviation 51.8 fL (36.4-46.3); White Blood Count 4.58 K/ul (4.8-10.8)
[2024-07-13 08:16] LABS: BUN Creatinine Ratio 16.2 (10-20); Calcium 8.6 mg/dl (8.6-10.3); Creatinine Clr Calc Pharmacy 80.9 ml/min; Magnesium 1.9 mg/dl (1.7-2.4); Phosphorus 3.7 mg/dl (2.5-4.9); Potassium 3.2 mmol/L (3.5-5.1)
--- NOTE | 2024-07-13 08:58 | Urology Progress Note ---
Date of Service July 13, 2024 Assessment & Plan (1) Hydronephrosis, left: (2) Incomplete bladder emptying: Plan: Follow-up of hydronephrosis Suspect hydronephrosis is secondary to bladder outlet obstruction, incomplete bladder emptying Elevated PVR yesterday, Smith placed Patient afebrile, hemodynamically stable Labs reviewednormal renal function, no leukocytosis Urinalysis on arrival was not suspicious for infection PSA was within normal limits No flank pain at present Plan: No acute intervention at this time Maintain Smith catheter for approximately 2 weeks Will plan for repeat imaging with renal ultrasound as outpatient to reassess hydronephrosis Will arrange outpatient follow-up for further workup of bladder outlet obstruction Can consider starting Flomax while inpatient will sign off, please contact our service with any additional questions or concerns Admission and Anticipated Discharge Date Admission Date: July 11, 2024 Subjective Patient seen and examined at bedside this morning. He is resting in bed, arouses easily to his name. Denies pain at present. Smith catheter was placed yesterday due to elevated PVR. Tolerating Smith catheter. Denies fever, chills, nausea, or vomiting. PSA came back at 2.006. Review of Systems Constitutional: as per Subjective / HPI Genitourinary: + as per Subjective / HPI Physical Exam Constitutional: well developed and well nourished; no acute distress Respiratory: normal respiratory effort; no respiratory distress and no labored breathing Gastrointestinal (Abdomen): Inspection/Auscultation: abdomen normal to inspection Musculoskeletal: Head/Neck/Chest: normocephalic Neurologic: moves all extremities and awake Psychiatric: Orientation: alert and oriented x 3 Genitourinary: Smith draining Results & Data Vital Signs (Past 12 Hours) Vital Signs Temp Pulse Pulse Resp BP Pulse Ox O2 Del Method 07/13/24 07:00 36.6 C 63 16 126/76 97 Room Air 07/13/24 03:34 36.6 C 75 18 144/85 H 96 Room Air 07/12/24 23:37 36.6 C 68 18 155/90 H 96 Room Air 07/12/24 21:56 71 07/12/24 21:00 Room Air PG Care Time/CCT Total # of Minutes Spent Total Time Spent with Patient: Total time spent is greater than 50% in coordination of care (as documented) at patient's floor/unit and/or counseling patient: Coding Level of Care Code 77119 SUB INP/OBS CARE 235MIN Diagnoses Hydronephrosis, left N13.30 Incomplete bladder emptying R33.9
[2024-07-13] MEDS: SPIRONOLACTONE 25 MG TAB PO SCH (09:22)
[2024-07-13] MEDS: POTASSIUM CHLORIDE CRTAB 20 MEQ TABCR PO STA (09:22)
--- OUTSIDE RECORDS SUMMARY | 2024-07-13 11:10 | External Medical Summary | Summary of Care ---
Author Name Unknown Organization [facility] Address [address] [place] [address] Phone [phone] Care Team Providers Care Manager Contract Name Role Phone Festus Coyle MD Primary Care Provider [phone] Reason for Visit * Reason Comments Acute Pt has swollen legs and pain in on the left side (legs)Pt states he has chest tightness on left side. Encounter Details Date Type Department Care Team (Late st Contact Info) Description 07/11/2024 11:00 AM EDT Office Visit [facility] [address] [place] [address] Marsha Mccoy MD [address] [place], [place] [id number] Chest pain, unspecified type*; Screening for depression; HTN, goal below 140/90; SOB (shortness of breath); EKG abnormality; Degeneration of intervertebral disc of lumbar region with discogenic back pain and lower extremity pain Allergies Active Allergy Reactions Criticality Noted Date Comments Amlodipine Tachycardia 07/12/2017 documented as of this encounter (statuses as of 07/11/2024) Medications Furosemide 40 MG Oral Tablet (Lasix)Indications [...] as of this encounter (statuses as of 07/11/2024) Active Problems Problem Noted Date Diagnosed Date Degeneration of intervertebr al disc of lumbar region with discogenic back pain and lower extremity pain 07/11/2024 Hyperlipidemia with target LDL less than 100 [...] as of this encounter (statuses as of 07/11/2024) Resolved Problems Problem Noted Date Diagnosed Date Resolved Date Antineoplastic chemotherapy induced pancytopenia 02/17/2018 12/08/2021 Food insecurity 11/02/2017 02/03/2024 Overview: Per [facility] Protocol Chemotherapy-induced neuropathy 09/13/2017 12/08/2021 documented as of this encounter (statuses as of 07/11/2024) Immunizations Name Administration Dates Next Due COVID-19 [...] Passive Smoke Exposure: Never Smokeless Tobacco: Never Tobacco Cessation:Counseling Given: No Alcohol Use Standard Drinks/Week Comments No 0 (1 standard drink = 0.6 oz pur e alcohol) AUDIT-C Answer Date Recorded Frequency of Alcohol Consumption Never 03/04/2018 Average Number of Drinks Not on file 018 Frequency of Binge Drinking Not on file 02/19 PHQ-2 Answer Date Recorded PHQ Adult Total Score 10 07/11/2024 Hunger Vital Sign Answer Date Recorded Within [...] Sign Reading Time Taken Comments Blood Pressure 162/92 07/11/2024 10:55 AM EDT Pulse 65 07/11/2024 10:55 AM EDT Temperature 36.5 °C (97.7 °F) 07/11/2024 10:51 AM E DT Respiratory Rate 16 07/11/2024 10:51 AM EDT Oxygen Saturation 98% 07/11/2024 10:51 AM EDT Inhaled Oxygen Concentration - - Weight 92 kg (202 lb 14.4 oz) 07/11/2024 10:51 A M EDT Height - - Body Mass Index 30.85 06/19/2024 11:05 AM EDT documented in this [...] documented in this encounter Progress Notes * Marsha Mccoy MD - 07/11/2024 11:22 AM EDT Subjective Jaime Giordano is a 63 year old male. Chief Complaint Patient presents with Acute Pt has swollen legs and pain in on the left side (legs) Pt states he has chest tightness on left side. HPI: Text in this note was generated using an [employer] documentation service. I discussed the use of a device to record and summarize our discussion today. All persons present during the encounter consented to its use History of Present Illness The patient, with a history of back pain due to disc herniation and bulging, presents with lt chestdiscomfort and shortness of breath. The chest discomfort, located lt lower chest , is exacerbated by deep breathing and has been ongoing since last year. The patient first noticed the discomfort lastyear but did not pay it much attention until it became constant. The shortness of breath was first noticed at the beginning of the year and is particularly noticeable when walking uphill. The patientdenies any current chest pain, stating it only occurs when taking a deep breath. The patient also reports leg pain and foot discomfort, which has been ongoing since last year and was previously managed by a finish painter. The patient also reports a feeling of tightness when standing up. EKG today showed significant changes, abnormal finding PMH: Patient Active Problem List Diagnosis Diffuse large B-cell lymphoma of intra-abdominal lymph nodes (HCC) Encounter for antineoplastic chemotherapy HTN, goal below 140/90 Bone marrow transplant status (HCC) History of diffuse large B-cell lymphoma Diffuse large cell lymphoma in remission (HCC) Hyperlipidemia with target LDL less than 100 Degeneration of intervertebral disc of lumbar region with discogenic back pain and lower extremity pain Current Outpatient Medications Medication Sig Dispense Refill [...] No current facility-administered medications for this visit. Past Medical History: Diagnosis Date Diffuse large B cell lymphoma (HCC) Hypertension No known health problems Past Surgical History: Procedure Laterality Date BX LYMPH NODE-SUPERFIC Left 04/12/2017 BIOPSY LYMPH NODE OPEN SUPERFICIAL performed by Nir Bailey MD at [facility] COLONOSCOPY COLONOSCOPY, DIAGNOSTIC (RECTUM) 06/17/2017 adenomatous polyp, diverticulosis, repeat 5 yrs/COLONOSCOPY FLEXIBLE PROXIMAL DIAGNOSTIC performed by Hilda Luevano DO at ENDOSCOPY [facility] INSER TUNN ACC DEV;5 YRS/OLDER 05/31/2017 INSERT TUNNELED CENTRAL VENOUS ACCESS WITH SUBQ PORT performed by Nir Bailey MD at OR [facility] PROCEDURE - GENERAL Left 04/26/2023 removal of chemo port from the left chest. REMOVAL OF TONSILS, UNDER AGE 14 Review of patient's allergies indicates: Allergen Reactions Amlodipine Tachycardia Family History Problem Relation Name Age of Onset Cancer Father throat cancer Family Status Relation Status Fa (Not Specified) Social History Socioeconomic History Marital status: Spouse name: Not on file Number of children: Not on file Years of education: Not on file Highest education level: Not on file Occupational History Not on file Tobacco Use Smoking status: Never Passive exposure: Never Smokeless tobacco: Never Vaping Use Vaping status: Never Used Substance and Sexual Activity Alcohol use: No Drug use: No Sexual activity: Not Currently Other Topics Concern Not on file Social [...] Stability Do you currently live in a fpc or have no steady place to sleep [...] ages0-17 years): Not on file Review of Systems Constitutional: Positive for activity change and fatigue. Negative for appetite change, chills, diaphoresis, fever and unexpected weight change. Respiratory: Positive for shortness of breath (on exertion). Negative for cough, chest tightness and wheezing. Cardiovascular: Positive for chest pain (lt sided discomfort). Negative for palpitations and leg swelling. Gastrointestinal: Negative for abdominal distention and abdominal pain. Musculoskeletal: Positive for back pain and gait problem (lt leg pain). Neurological: Positive for numbness (lt leg). Negative for dizziness and light-headedness. Psychiatric/Behavioral: Negative for agitation and behavioral problems. The patient is nervous/anxious. Objective BP 162/92 | Pulse 65 | Temp 97.7 °F (36.5 °C) (Tympanic) | Resp 16 | Wt 202 lb 14.4 oz (92 kg) | SpO2 98% | BMI 30.85 kg/m² | BSA 2.1 m² Physical Exam Constitutional: General: He is not in acute distress. Appearance: Normal appearance. He is not ill-appearing, toxic-appearing or diaphoretic. HENT: Head: Normocephalic and atraumatic. Nose: Nose normal. Eyes: Extraocular Movements: Extraocular movements intact. Cardiovascular: Rate and Rhythm: Normal rate and regular rhythm. Pulses: Normal pulses. Heart sounds: Normal heart sounds. No murmur heard. Pulmonary: Effort: Pulmonary effort is normal. No respiratory distress. Breath sounds: No stridor. No wheezing, rhonchi or rales. Chest: Chest wall: No tenderness. Musculoskeletal: Right lower leg: No edema. Left lower leg: No edema. Neurological: General: No focal deficit present. Mental Status: He is alert and oriented to person, place, and time. Psychiatric: Behavior: Behavior normal. ASSESSMENT/PLAN: Chest pain, unspecified type (Primary) - EKG; Future; Expected date: 07/11/2024 - EKG Screening for depression - DEPRESSION SCREENING PERFORMED HTN, goal below 140/90 SOB (shortness of breath) EKG abnormality Degeneration of intervertebral disc of lumbar region with discogenic back pain and lower extremity pain Assessment & Plan Angina, progressing, more persistent , with abnormal EKG Intermittent chest discomfort and dyspnea suggest angina. EKG changes indicate possible disease progression. Immediate evaluation necessary due to risk of severe cardiac events. Emphasized urgency due to potential life-threatening complications. - Send to ER for urgent evaluation and management. - Provide EKG results to ER for comparison. - Instruct to report left-sided chest discomfort and recent EKG findings to ER staff. Hypertension - taking meds Elevated blood pressure readings can exacerbate coronary artery disease and increase cardiac event risk. Lumbar disc herniation and bulging Chronic back issues with confirmed lumbar disc herniation and bulging on MRI, not primary concern currently. Discussed with pt and his on the phone Agreed with ER Marsha Mccoy MD documented in this encounter Procedure Notes * Forrest Torres DO - 07/11/2024 11:05 AM EDTAssociated Order(s): EKG REASON FOR STUDY: chest pain , left;chest pain , left CONCLUSIONS: Normal sinus rhythm Left axis deviation Left ventricular hypertrophy with secondary QRS widening ( R in aVL , Sloan product ) Cannot rule out Septal infarct , age undetermined T wave abnormality, consider inferolateral ischemia Abnormal ECG When compared with ECG of 22-Dec-2017 15:05, QRS duration has increased Minimal criteria for Septal infarct are now Present T wave inversion now evident in Inferior leads Inverted T waves have replaced nonspecific T wave abnormality in Lateral leads Ventricular Rate: 61 Atrial Rate: 61 DC Interval: 172 QRS Duration: 126 QT/QTc: 422/424 ms P-R-T [place]: 64 : -41 : -39 degrees documented in this encounter Nursing Notes * Erica Post LPN - 07/11/2024 10:41 AM EDT Chief Complaint Patient presents with Acute Pt has swollen legs and pain in on the left side (legs) Pt states he has chest tightness on left side. Hydrochlorothiazide made pt dizzy documented in this encounter Plan of Treatment Upcoming Encounters Date Type Department Care Team (Latest Contact Info) Description 08/02/2024 2:00 PM EDT Office Visit [facility] [address] [facility] [place] [address] Festus Coyle MD [address] [facility] [place] [address] 09/07/2024 11:45 AM EDT Hospital Encounter ENDO [facility], Endoscopy Room [facility] [address] [place], [place] [id number] Rosalee Edmonds MD [address] [place] [address] 09/07/2024 11:45 AM EDT - 09/07/2024 12:15 PM EDT Surgery ENDO [facility], Endoscopy Room [facility] [address] [place] [address] Rosalee Edmonds MD [address] [facility] [place] [id number] COLONOSCOPY FLEXIBLE PROXIMAL DIAGNOSTIC 10/16/2024 8:37 AM EDT Hospital Encounter OR [facility], Operating Room [address] [address] Jordon Foote, [address] [place] [address] 10/16/2024 8:37 AM EDT - 10/16/2024 8:59 AM EDT Surgery OR [facility], Operating Room [address] [place] [address] Jordon Foote, [address] [place] [address] INJECTION SPINE LUMBAR OR SACRAL 05/03/2025 3:00 PM EST Office Visit Hematology/Oncology [facility] [place] [address] [place] [phone] Mark Arredondo MD [address] [place] [address] Scheduled Procedures Name Priority Associated Diagnoses Date/Ti me COLONOSCOPY FLEXIBLE PROXIMAL DIAGNOSTIC History of colon polyps Special screening for malignant neoplasms, colon 09/07/2024 11:45 AM EDT INJECTION SPINE LUMBAR OR SACRAL Lumbar radiculopathy 10/16/2024 8:37 AM EDT Health Maintenance Due Date Last Done Comments Cologuard 07/31/2007 Fecal Occult Blood Test 07/31/2007 Sigmoidoscopy 07/31/2007 Colonoscopy 06/17/2022 06/17/2017, 06/17/2017 Colorectal Cancer Screening 06/17/2022 Pneumococcal Vaccine: 50+ Years (3 of 3 - PPSV23, PCV20 or PCV21) 10/04/2024 10/05/2019, 03/06/2019, 11/04/2018, Additional history exists Hepatitis C Screening 01/06/2025 Postpo jovany from 1980 (Patient Declined After Education) GFR 05/03/2025 05/03/2024, 03/22, 01/07/2024, Additional history exists Depression Screening 07/11/2025 07/11/2024, 07/11/2024, 07/02/2023 Albumin/Creatinine Ratio 04/07/2027 04/07/2024 Diabetes Screening 05/03/2027 [...] this encounter Medical Devices Implanted Type Area Framing Manager Device Identifier Shelf Expiration Date Model / Serial / Lot Port Power Mri W/8fr Cath - [id number] Implanted:Qty : 1 on 05/31/2017 by Nir Bailey MD at OR [facility] Right: Internal Jugular CR BARD : PERIPHERAL VASCULAR 01/19/2019 [id number] / / [id number] documented as of this encounter Procedures Procedure Name Priority Date/Time Associated Diagnosis Comments DC ECG ROUTINE ECG W/LEAST 12 LDS I&R ONLY Routine 07/11/2024 11:05 AM EDT Chest pain, unspecified type documented in this encounter Results * EKG (07/11/2024 11:05 AM EDT) 07/11/2024 11:0 5 AM EDT Narrative Procedure Note Forrest Torres, DO - 07/11/2024 11:05 AM EDT REASON FOR STUDY: chest pain , left;chest pain , left CONCLUSIONS: Normal sinus rhythm Left axis deviation Left ventricular hypertrophy with secondary QRS widening ( R in aVL ,Flex product ) Cannot rule out Septal infarct , age undetermined T wave abnormality, consider inferolateral ischemia Abnormal ECG When compared with ECG of 22-Dec-2017 15:05, QRS duration has increased Minimal criteria for Septal infarct are now Present T wave inversion now evident in Inferior leads Inverted T waves have replaced nonspecific T wave abnormality in [place] Ventricular Rate: 61 Atrial Rate: 61 DC Interval: 172 QRS Duration: 126 QT/QTc: 422/424 ms P-R-T [place]: 64 : -41 : -39 degrees us Marsha Mccoy MD EKG Final Result [facility] documented in this encounter Visit Diagnoses Diagnosis Chest pain, unspecified type- Primary Screening for depression HTN, goal below 140/90 Unspecified essential hypertension SOB (shortness of breath) Shortness of breath EKG abnormality Nonspecific abnormal electrocardiogram (ECG) (EKG) Degeneration of intervertebral disc of lumbar region with discogenic back pain and lower extremity pain History of colon polyps Personal history of colonic polyps Special screening for malignant neoplasms, colon Lumbar radiculopathy Thoracic or lumbosacral neuritis or radiculitis, unspecified documented in this encounter Advance Directives * [...] Power of Attor lissette? No Care Teams Manager Contract Relationship Specialty Start Date End Date Festus Coyle MD [address] [facility] [place] [address] PCP - General Family Medicine 07/05/24 documented as of this encounter"
--- OUTSIDE RECORDS SUMMARY | 2024-07-13 11:10 | External Medical Summary | Summary of Care ---
Author Name Unknown Organization [facility] Address [address] [place] [address] Phone [phone] Care Team Providers Care Bundle Clerk Name Role Phone Festus Coyle MD Primary Care Provider [phone] Reason for Visit * Reason Onset Date Comments Encounter Created in Error 07/12/2024 Encounter Details Date Type Department Care Team (Late st Contact Info) Description 07/12/2024 Telephone Cardiology, [facility] [address] [place] [address] Franchesca Colbert PA-C [address] [place] [address] Encounter Created in Error Allergies Active Allergy Reactions Criticality Noted Date Comments Amlodipine Tachycardia 07/12/2017 documented as of this encounter (statuses as of 07/12/2024) Medications Furosemide 40 MG Oral Tablet (Lasix)Indications [...] as of this encounter (statuses as of 07/12/2024) Active Problems Problem Noted Date Diagnosed Date [...] as of this encounter (statuses as of 07/12/2024) Resolved Problems Problem Noted Date Diagnosed Date Resolved Date Antineoplastic chemotherapy induced pancytopenia 02/17/2018 12/08/2021 Food insecurity 11/02/2017 02/03/2024 Overview: Per [facility] Protocol Chemotherapy-induced neuropathy 09/13/2017 12/08/2021 documented as of this encounter (statuses as of 07/12/2024) Immunizations Name Administration Dates Next Due COVID-19 [...] Description 08/02/2024 2:00 PM EDT Office Visit [facility] [address] [place] [phone] Festus Coyle MD [address] [place] [address] 09/07/2024 11:45 AM EDT Hospital Encounter ENDO [facility], Endoscopy Room [facility] [address] [place] [address] Rosalee Edmonds MD [address] [place] [address] 09/07/2024 11:45 AM EDT - 09/07/2024 12:15 PM EDT Surgery ENDO [facility], Endoscopy Room [facility] [address] [place] [address] Rosalee Edmonds MD [address] [place] [address] COLONOSCOPY FLEXIBLE PROXIMAL DIAGNOSTIC 10/16/2024 8:37 AM EDT Hospital Encounter OR [facility], Operating Room [address] [address] Jordon Foote, DO [address] [place] [address] 10/16/2024 8:37 AM EDT - 10/16/2024 8:59 AM EDT Surgery OR [facility], Operating Room [address] [address] Jordon Foote, DO [address] [place] [address] INJECTION SPINE LUMBAR OR SACRAL 05/03/2025 3:00 PM EST Office Visit Hematology/Oncology [facility] [place] [address] [facility] [place] [address] Mark Arredondo MD [address] [place] [address] Scheduled Procedures Name Priority Associated Diagnoses Date/Ti [...] this encounter Medical Devices Implanted Type Area Paralegal Assistant Device Identifier Shelf Expiration Date Model / Serial / Lot Port Power Mri W/8fr Cath - [id number] Implanted:Qty : 1 on 05/31/2017 by Nir Bailey MD at OR [facility] Right: Internal Jugular CR BARD : PERIPHERAL VASCULAR 01/19/2019 [id number] / / [id number] documented as of this encounter Advance Directives [...] Power of Attor lissette? No Care Teams Bundle Clerk Relationship Specialty Start Date End Date Festus Coyle MD [address] [facility] [place] [address] PCP - General Family Medicine 07/05/24 documented as of this encounter
[2024-07-13] MEDS: REGADENOSON 0.4 MG/5 ML SYR IV ONE (12:39)
--- NOTE | 2024-07-13 13:36 | Myocardial Perfusion Study ---
Date of Service July 13, 2024 Myocardial Perfusion Study [facility] Myocardial Perfusion Study Report Indication: Chest pain Complications: None Summary: Patient performed stress test according to Lexiscan protocol for 3 minutes at 7 seconds. Achieving a work level of 1.0 METS. Resting heart rate of 68 bpm cory to a maximal heart rate of 121 bpm. This value represents 76% of the maximal, age-predicted heart rate. Resting blood pressure of 144/93 cory to a maximum blood pressure of 152/84. Stress test was stopped due to completion of protocol. Symptoms: Chest discomfort, headache. Normal heart rate and blood pressure response to Lexiscan infusion. Resting ECG: Sinus rhythm, nonspecific interventricular conduction delay, T wave abnormality. Stress ECG: No ischemia. Nuclear imaging: For the stress portion of the study 29.7 mCi of technetium 99m Cardiolite was injected at 11:40 AM 1 hour following the injection, imaging of the heart was performed in multiple projections. For the rest portion of the study 10.3 mCi of technetium 99m Cardiolite was injected at 9:17 AM. 1 hour following the injection, imaging of the heart was performed in the same projections. Rest imaging: Normal perfusion. Stress imaging: There is a small perfusion defect of mild intensity involving the base and mid inferior wall. The defect is reversible when compared to resting images and represents a small area of inferior ischemia. Gated SPECT imaging: Normal wall motion and myocardial thickening. Calculated ventricular ejection fraction is 58%. Conclusion: 1. Abnormal Lexiscan nuclear stress test demonstrating a small area of inferior ischemia. 2. Normal gated SPECT imaging 3. Calculated left ventricular ejection fraction is 58%. Medhat Bartlett DO, [facility]
[2024-07-13 15:15] VITALS: BP 146/86; O2SAT 96
--- NOTE | 2024-07-13 15:39 | Cardiology Progress Note ---
Date of Service July 13, 2024 Assessment & Plan (1) Hypertensive urgency: (2) Hypokalemia: (3) Abnormal nuclear stress test: (4) Hematuria: (5) Hydronephrosis, left: Plan 63-year-old male admitted with hypertensive urgency and lower extremity edema possibly exacerbated by recent prescription of gabapentin. Lexiscan nuclear stress test was performed for evaluation of intermittent chest discomfort. The Lexiscan nuclear stress test demonstrates a small area of mild inferior ischemia encompassing approximately 3% of the total myocardium. Edema has improved since admission with 2 doses of intravenous furosemide in addition of Aldactone. Blood pressure remains elevated. Further evaluation of abnormal nuclear stress test discussed. With evidence of gross hematuria in this afternoon, I would not recommend cardiac catheterization at this time. Hematuria likely related to traumatic Smith insertion, however, mild anemia noted per CBC today. Further evaluation as per internal medicine/urology. Alternative imaging such as cardiac/coronary CT discussed. Patient prefers outpatient evaluation with cardiac CT at this time. I will schedule imaging and cardiology follow-up. From a medication perspective continue Aldactone 25 mg daily in addition to lisinopril. I will also add low- dose amlodipine 2.5 mg daily to improve blood pressure control and aspirin 81mg daily. Continue statin therapy. I spent a total of 55 minutes on the date of service in preparation, delivery, and documentation of the care provided to this patient, excluding any time spent in the performance of separately billed services. Medhat Bartlett DO, [facility] Admission and Anticipated Discharge Date Admission Date: July 11, 2024 Subjective 63-year-old male seen and examined at bedside. Lexiscan nuclear stress test performed earlier today with evidence of mild inferior ischemia. Ischemia involves 3% of the total myocardium for quantitative analysis. Patient chest pain-free since admission. Resting discharge if possible today. A Smith was placed by urology with evidence of gross hematuria this afternoon. Mild anemia noted on CBC. Multiple family members present at bedside. Review of Systems Review of Systems: All systems reviewed & are unremarkable except as noted in Subjective Physical Exam Constitutional: well nourished; no acute distress Respiratory: normal respiratory effort; no respiratory distress Auscultation: no crackles, no rales, no rhonchi and no wheezes Cardiovascular: Rate/Rhythm: regular rate and regular rhythm Heart Sounds: normal S1 and normal S2; no murmur Vessels: no JVD Extremities: no edema Gastrointestinal (Abdomen): Inspection/Auscultation: abdomen normal to inspection and normal bowel sounds; abdomen not distended Percussion/Palpation: abdomen soft; abdomen nontender, no guarding and abdomen not rigid Neurologic: CN's II-XI intact bilaterally and moves all extremities; no focal motor deficits Results & Data Vital Signs (Past 12 Hours) Vital Signs Temp Pulse Pulse Resp BP Pulse Ox O2 Del Method 07/13/24 15:00 36.6 C 86 16 146/86 H 96 Room Air 07/13/24 12:36 36.6 C 79 16 161/95 H 95 Room Air 07/13/24 10:16 Room Air 07/13/24 08:00 68 07/13/24 07:00 36.6 C 63 16 126/76 97 Room Air Laboratory Results CBC 07/13/24 Range/Units 07:03 WBC 4.58 L (4.8-10.8) K/ul RBC 3.90 L (4.70-6.10) M/uL Hgb 10.9 L (14.0-18.0) g/dl Hct 33.2 L (42.0-52.0) % Plt Count 162 (130-400) K/uL Comprehensive Metabolic Panel 07/13/24 Range/Units 07:03 Sodium 144 (136-145) mmol/L Potassium 3.2 L (3.5-5.1) mmol/L Chloride 108 H (98-107) mmol/L Carbon Dioxide 32 (21-32) mmol/L BUN 16 (6-23) mg/dl Creatinine 0.99 (0.6-1.4) mg/dl Glucose 89 (70-99(Fasting)) mg/dl Calcium 8.6 (8.6-10.3) mg/dl Intake and Output 07/13/24 07/13/24 07/13/24 06:59 14:59 22:59 Output Total 275 / 2725 400 / 400 Balance -275 / -2300 -400 / -400 Output: Urine Amount (Catheter) 275 / 775 400 / 400 Smith/Indwelling 275 / 775 400 / 400 Other: Other Intake Source npo NPO Weight 87.6 kg Weight Measurement Method Built in [facility] (4) Hematuria Hematuria type: gross Qualified Code(s): R31.0 - Gross hematuria
--- NOTE | 2024-07-13 16:13 | Discharge Summary ---
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 Patient states he noticed lower extremity edema that has been worsening over the last month. He called his PCP office to see if he could get a refill on his lasix (previously took for lymphoma but has not taken in over a year) and it was advised that he be seen. His PCP referred him to the ED after patient explained he has been having chest pain and SOB concerning for angina with an abnormal EKG in the office. Patient reports that he has been having intermittent left lower chest pain only when taking a deep breath for the last week. He has also been having SOB with exertion for the last month. He walks as much as he is able to with his lumbar back pain and found himself getting increasingly SOB when walking uphill. The SOB improves when he slows his pace down. His lower extremity edema started in his left leg about a month ago and has since progressed to his right leg as well. He notes that the edema improves when he elevates his legs. He has had persistent left leg pain from his hip to knee related to his lumbar disc protrusion that he uses ibuprofen and voltaren gel for. He was recently prescribed gabapentin for this but notes no other changes in his medications. He has not had any recent surgery or travel. He denies fevers, chills, cough, cold symptoms, abdominal pain, N/V/D, dysuria and hematochezia. He denies any recent sick contacts. He lives at home with his and two sons. Admission Exam Per Admitting Provider General/Psych: WD/WN, sitting up in bed, NAD, conversing easily, euthymic affect Head: normocephalic, atraumatic Eyes: normal inspection, PERRL, conjunctivae pink, anicteric sclerae ENT: external ear and nose normal, oropharynx normal Neck: normal visual inspection, trachea midline, no thyromegaly Respiratory: normal respiratory effort, lungs clear to auscultation, no wheeze/rales/rhonchi, no accessory muscle use Cardiovascular: regular rate and rhythm, no murmur/rub/gallop, no JVD Extremities: no cyanosis or clubbing, normal peripheral pulses, 1+ pitting edema of right LE and 2+ pitting edema of left LE Abdomen/GI: normal bowel sounds, soft, nontender, no hepatosplenomegaly Neurologic/MSK: A+Ox3, motor strength 5/5, moves all extremities Skin: no rashes, normal color, warm and dry Principal Diagnosis Chest pain, Hypertensive urgency Abnormal stress test Urinary retention, Hydronephrosis Discharge Exam General/Psych: WD/WN, sitting up in bed, NAD Head: normocephalic, atraumatic Eyes: normal inspection, PERRL ENT: external ear and nose normal Neck: normal visual inspection Respiratory: normal respiratory effort, lungs clear to auscultation, no wheeze/rales/rhonchi, no accessory muscle use Cardiovascular: regular rate and rhythm Extremities: + LE edema improved Abdomen/GI: normal bowel sounds, soft, nontender : Smith cath draining yellow urine Neurologic: awake, alert, answers appropriately, speech fluent, moves all extremities Skin: warm and dry Discharge Data Allergies Allergy/AdvReac Type Severity Reaction Status Date / Time No Known Allergies Allergy Verified 01/14/22 22:51 Consultations 07/11/24 14:56 ED Decision to Admit Stat 07/11/24 17:12 Consult Cardiology Routine 07/12/24 13:54 Consult Urology Routine Ordered Studies 07/11/24 13:05 US venous doppler LE LT Stat Findings: The left common femoral, superficial femoral, popliteal, and visualized calf veins demonstrate normal anechoic lumens with full compressibility. Normal flow is seen on color Doppler images. Expected waveforms were produced with augmentation maneuvers Impression: No evidence of left leg deep venous thrombosis 07/11/24 15:52 CT angio chest PE protocol Stat Impression: 1. No definite sign of pulmonary embolism 2. Mild bilateral lower lobe atelectasis 3. Partially visualized left hydronephrosis. CT of the abdomen and pelvis could be considered for further evaluation 07/11/24 16:46 CT Abdomen and Pelvis [CT abd pelvis wo con] Routine IMPRESSION: Moderate left-sided hydroureteronephrosis. Evaluation for small stones is limited due to excreted contrast opacifying the renal pelvi and ureters as well as the urinary bladder entirely. Within this limitation, no definite obstructing stone is detected. Multifocal areas of the ureteral narrowing are present on the left side which may be due to stricturing. Cystoscopy may be considered if there is concern for active processes at the ureteral orifices Nodular prostate gland impinging upon the urinary bladder resulting in chronic outlet obstruction. Recommend correlation with PSA. If there is concern for prostatic malignancy, MRI may be obtained with prostate protocol. 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 Chest pain, SOB on exertion, bilateral LE edema CT chest negative for PE but revealed partially visualized left hydronephrosis - > ordered CT abdomen CT abdomen - Moderate left-sided hydroureteronephrosis. Multifocal areas of the ureteral narrowing are present on the left side which may be due to stricturing. Cystoscopy may be considered if there is concern for active processes at the ureteral orifices Nodular prostate gland impinging upon the urinary bladder resulting in chronic outlet obstruction. Recommend correlation with PSA. If there is concern for prostatic malignancy, MRI may be obtained with prostate protocol. EKG with T wave inversions in lateral and inferior leads Labs remarkable for anemia and hypokalemia Work up thus far includes negative CXR, venous doppler, BNP, troponin Echo obtained troponin x3 negative received IV lasix in ED Ni choudhary Cardiology consulted - Hypertensive urgency, atypical chest pain, no evidence of ACS Recommendations: * Aldactone added * Resume lisinopril * lexiscan nuclear stress test - The Lexiscan nuclear stress test demonstrates a small area of mild inferior ischemia encompassing approximately 3% of the total myocardium. Patient prefers outpatient evaluation with cardiac CT at this time. Will schedule imaging and cardiology follow-up. From a medication perspective continue Aldactone 25 mg daily in addition to lisinopril. I will also add low-dose amlodipine 2.5 mg daily to improve blood pressure control and aspirin 81mg daily. Continue statin therapy. Hypertensive urgency BPs 170-180/90-100s in ED Patient did not take BP meds prior to admission resumed lisinopril, added spironolactone, amlodipine, as above Hypokalemia replace and monitor Hydronephrosis, and urinary retention - Smith cath placed - urology consulted - will need further outpt follow up - PSA 2 (normal) Anemia Baseline Hgb 12-13 per records Patient asymptomatic Monitor Hyperlipidemia Continue statin per home dosing Lumbar radiculopathy Follows with interventional pain MRI of lumbar spine in May 2024 demonstrating disc protrusion at L3-L4 Recently started on gabapentin - continue per home dosing Lymphoma in remission Surveillance Follows with Dr Arredondo yearly Total Time Total Time Spent Total Time Spent (In Minutes): 40 Discharge Plan Discharge Items Patient Disposition: Home - Self-Care Reason For Visit: SOB Discharge Diagnosis: Chest pain, Hypertensive urgency Abnormal stress test Urinary retention, Hydronephrosis Activity: Per Instructions section Non-emergency contact: Primary Care Provider, Specialist, Environmental Engineering Intern and Urologist Call non-emergency contact if: you have any medication questions and your s ymptoms worsen Follow-up/Referrals: Vicki Jackson CRNP [Nurse Practitioner] - 08/15/24 10:30 am Marsha Mccoy MD [Primary Care Provider] - (Date & Time 07/20/2024 9:40 AM Provider: Festus Coyle MD [facility] [place] [facility] [place] ) Diet: Heart Healthy Addtl Attending Provider Instructions: Follow up with your primary care doctor, social work nurse, urologist. Take lisinopril, spironolactone, amlodipine , aspirin, as prescribed. Monitor your blood pressure if you can, and record your numbers. Discuss your numbers with your health care providers so that your medications can be further adjusted. Pending Studies at Discharge: No Stand-Alone Forms: My [employer], Smoking Cessation Medications and DC Order Prescriptions: New amlodipine [Norvasc] 5 mg Tablet 2.5 mg PO QAM Qty: 20 0RF spironolactone 25 mg Tablet 25 mg PO DAILY Qty: 30 0RF aspirin 81 mg capsule 81 mg PO DAILY Qty: 30 0RF Continued cetirizine 10 mg tablet 10 mg PO DAILY ibuprofen 800 mg tablet 800 mg PO TID gabapentin 100 mg capsule 200 mg PO HS lisinopril 40 mg tablet 40 mg PO DAILY rosuvastatin 10 mg tablet 10 mg PO HS diclofenac sodium 1 % gel 1 ea TOPICAL BID PRN (Reason: Pain) Discharge Orders: Discharge Order (Routine); Ordered 07/13/24 Ordered By: Gaetano Jameson Admission Data Admit Date/Time: 07/11/24 16:03 Attending Provider: Gaetano Jameson Admit Provider: Yoko Schmidt Primary Care Provider: Marsha Mccoy Other Providers: Medhat Bartlett; Yoko Schmidt; Omi Roper
[2024-07-13] MEDS: amLODIPine BESYLATE 5 MG TAB PO SCH (18:02)
[2024-07-13 18:14] VITALS: PULSE 81
== END 2024-07-13 19:12 | disposition home or self-care (01) ==
LOC: 2S 12:35 → ED 12:35 → SUATTDRO 16:03 → 2S 18:30

== ENCOUNTER 2024-09-05 10:07 | Inpatient (IN) ==
--- NOTE | 2024-09-04 09:03 | Anesthesiology Consultation ---
Date of Service September 04, 2024 Assessment & Plan (1) Encounter for pre-operative examination: - hyperkalemia at 5.5: Case discussed in detail with Dr. Ahn who advised repeat BMP and EKG am DOS. Orders placed. Fluid orders and ultimate determination on patient proceeding with surgery will be to assigned anesthesiologist review of BMP and EKG DOS. - cardiology office visit 07/27/24 [facility]: "...hypertension with recent admission for hypertensive urgency June 2024. Multifactorial volume overload/edema secondary to HTN, diastolic dysfunction, gabapentin use. Abnormal nuclear stress test 06/2024 (false positive). Normal cardiac CT July 2024-normal coronary arteries and calcium score of 0...continues to experience shortness of breath and describes a sensation of discomfort in the epigastric area, particularly when bending over...no severe chest pain...no further cardiac intervention is required...follow up with urology scheduled for next week..." - discharge summary 07/13/24 [facility]: "...Chest pain, SOB on exertion, bilateral LE edema CT chest negative for PE but revealed partially visualized left hydronephrosis - > ordered CT abdomen. CT abdomen - Moderate left-sided hydroureteronephrosis... EKG with T wave inversions in lateral and inferior leads. Labs remarkable for anemia and hypokalemia. Work up thus far includes negative CXR, venous doppler, BNP, troponin. Echo obtained. troponin x3 negative. received IV lasix in ED. Cardiology consulted - Hypertensive urgency, atypical chest pain, no evidence of ACS Recommendations: * Aldactone added * Resume lisinopril * lexiscan nuclear stress test - The Lexiscan nuclear stress test demonstrates a small area of mild inferior ischemia encompassing approximately 3% of the total myocardium. Patient prefers outpatient evaluation with cardiac CT at this time. Will schedule imaging and cardiology follow-up. From a medication perspective continue Aldactone 25 mg daily in addition to lisinopril. I will also add low-dose amlodipine 2.5 mg daily to improve blood pressure control and aspirin 81mg daily. Continue statin therapy. Hypokalemia replace and monitor...Anemia Baseline Hgb 12-13 per records. Patient asymptomatic. Monitor..." - Per rotary furnace operator on 08/29/24: No known infectious disease contacts, current infectious disease symptoms in past 10 days or COVID positive test result in the past 30 days. Chart Review Chart Review: Acceptable Risk for Surgery and Patient NOT seen in Pre Admission Testing History Surgery Operation Date: 09/05/24 12:45 Proposed Procedures p Transurethral Resection Prostate - Sudeep Hansen MD Height/Weight Height: 5 ft 9 in Weight: 86.183 kg Allergies Allergy/AdvReac Type Severity Reaction Status Date / Time No Known Allergies Allergy Verified 08/29/24 10:16 Medications Home Medications Medication Instructions Recorded Confirmed Last Taken cetirizine 10 mg tablet 10 mg PO QAM 07/11/24 08/29/24 07/10/24 diclofenac sodium 1 % topical gel 1 ea topical BID PRN Pain 07/11/24 08/29/24 Unknown gabapentin 100 mg capsule 200 mg PO HS 07/11/24 08/29/24 07/10/24 ibuprofen 800 mg tablet 800 mg PO TID 07/11/24 08/29/24 07/10/24 lisinopril 40 mg tablet 40 mg PO QAM 07/11/24 08/29/24 07/10/24 rosuvastatin 10 mg tablet 10 mg PO HS 07/11/24 08/29/24 07/10/24 amlodipine 5 mg tablet (Norvasc) 2.5 mg (1/2 x 5 mg) PO QAM #20 tabs 07/13/24 08/29/24 Unknown citalopram 20 mg tablet (Celexa) 20 mg PO QAM 08/21/24 08/29/24 Unknown furosemide 40 mg tablet (Lasix) 40 mg PO QAM 08/21/24 08/29/24 Unknown potassium chloride 20 mEq 20 meq PO QAM 08/21/24 08/29/24 Unknown tablet,extended release(part/cryst) aspirin 81 mg capsule 81 mg PO QAM 08/29/24 08/29/24 Unknown spironolactone 25 mg tablet 25 mg PO QAM 08/29/24 08/29/24 Unknown Past Medical History Medical History Anxiety and depression History of abnormal electrocardiogram 07/12/24, admitted to [facility], pt stated "he is unsure of all the details, but no longer having any kind of chest pain." History of diverticulitis History of hypertension Hx of hyperlipidemia Hx of migraines Intraabdominal mass hx, pt unsure of details "this may have been the thing they removed from my left side of abdomen that was cancerous" Lymphoma hx, 2018, stem cell transplant; currently in remission per pt. Positive PPD Right inguinal hernia per pt. SOB (shortness of breath) on exertion "ongoing" per pt Urinary retention due to benign prostatic hyperplasia Past Surgical History Surgical History Hx of colonoscopy Hx of excision of mass left side abdomen Hx of stem cell transplant ~2018 "he thinks" Hx of tonsillectomy Hx of tooth extraction Social History Smoking Status: Never smoker Do You Dip or Chew Tobacco: No Hx Alcohol Use: Yes (none since 2021) Hx Substance Use: No substance use type: does not use Testing Laboratory Results 09/01/24 WBC: 5.6 H/H: 12/37 PLATELETS: 175,000 SODIUM: 135 POTASSIUM: 5.5 CHLORIDE: 102 CO2: 24 BUN: 41 CREATININE: 1.5 GLUCOSE: 106 Surgeon's office made aware urine culture is pending from 09/01/24-to surgeon's office discretion if patient is acceptable to proceed from that standpoint. Electrocardiogram Date: 07/12/24 NSR with sinus arrhythmia, rate 75 bpm Left anterior fascicular block Minimal voltage criteria for LVH, may be normal variant Nonspecific ST abnormality Comparison to 07/11/24 EKG: Minimal criteria for septal infarct are no longer present ST elevation now present in anterior leads T wave inversion no longer evident in lateralds Chest X-Ray Date: 07/11/24 *1 view* There is mild cardiomegaly without pulmonary vascular congestion. No effusion,consolidation, or pneumothorax. IMPRESSION: No acute findings. Echocardiogram Date: 07/12/24 LVEF 55-60% Mild cLVH Apical trabeculations noted Grade I diastolic dysfunction Mild tricuspid regurgitation Stress Test Date: 07/11/24 1. Abnormal Lexiscan nuclear stress test demonstrating a small area of inferior ischemia. 2. Normal gated SPECT imaging 3. Calculated left ventricular ejection fraction is 58%. MPHR 76% S cardiology 07/27/24 documents this study as a false positive result Other Testing Abdomen pelvis CT 07/11/24 Moderate left-sided hydroureteronephrosis. Evaluation for small stones is limited due to excreted contrast opacifying the renal pelvi and ureters as well as the urinary bladder entirely. Within this limitation, no definite obstructing stone is detected. Multifocal areas of the ureteral narrowing are present on the left side which may be due to stricturing. Cystoscopy may be considered if there is concern for active processes at the ureteral orifices Nodular prostate gland impinging upon the urinary bladder resulting in chronic outlet obstruction. Recommend correlation with PSA. If there is concern for prostatic malignancy, MRI may be obtained with prostate protocol. Chest CTA 07/11/24 1. No definite sign of pulmonary embolism 2. Mild bilateral lower lobe atelectasis 3. Partially visualized left hydronephrosis. CT of the abdomen and pelvis could be considered for further evaluation
--- NOTE | 2024-09-05 10:17 | History & Physical Bridge Note ---
Date of Service September 05, 2024 History & Physical Bridge Note I have examined the patient, reviewed the History & Physical and in the interval since the performance of the History & Physical I have noted the following changes of clinical significance: no changes noted
[2024-09-05] MEDS: LACTATED RINGER'S 1,000 ML IV ONE (10:52)
[2024-09-05 10:53] LABS: Calcium 9.4 mg/dl (8.6-10.3); Creatinine Clr Calc Pharmacy 67.1 ml/min; Potassium 4.8 mmol/L (3.5-5.1)
[2024-09-05] MEDS ORDERED: LIDOCAINE 2% 2 ML VIAL/AMP(20MG/ML) INFIL ONE (10:55)
[2024-09-05] MEDS ORDERED: fentaNYL citrate PF 100 MCG/2 ML VIAL ONE (10:55)
[2024-09-05] MEDS ORDERED: MIDAZOLAM HCL 1 MG/ML 2ML VIAL ONE (10:55)
[2024-09-05] MEDS ORDERED: PROPOFOL IV EMULSION 10 MG/ML 20 ML VIAL IV ONE (10:55)
[2024-09-05] MEDS ORDERED: DEXAMETHASONE SOD INJ 4 MG/ML VIAL ONE (10:55)
[2024-09-05] MEDS ORDERED: ONDANSETRON INJ 2 MG/ML 2 ML VIAL ONE (10:55)
[2024-09-05] MEDS ORDERED: fentaNYL citrate PF 100 MCG/2 ML VIAL IV PRN (13:14)
[2024-09-05] MEDS ORDERED: ONDANSETRON INJ 2 MG/ML 2 ML VIAL IV PRN ×2 (13:14→15:34)
[2024-09-05] MEDS ORDERED: ePHEDrine sulfate 50 MG/ML AMP IV PRN (13:14)
[2024-09-05] MEDS ORDERED: ATROPINE SULFATE 0.1 MG/ML 10ML SYR IV PRN (13:14)
[2024-09-05] MEDS ORDERED: PROMETHAZINE HCL 6.25 MG in SODIUM CHLORIDE 0.9% 50 ML IV PRN (13:14)
[2024-09-05] MEDS ORDERED: HYDROmorphone INJ 2 MG/ML SYR/VIAL IV PRN (13:14)
[2024-09-05] MEDS: CIPROFLOXACIN / D5W 400 MG/200 ML BAG IV SCH (13:24)
[2024-09-05] MEDS ORDERED: PHENYLEPHRINE 100MCG/ML 5ML SYR ONE ×2 (14:02)
--- NOTE | 2024-09-05 14:21 | Operative Report ---
PG Post Operative Report Pre & Post Diagnosis Operation Date: 09/05/24 12:45 Pre: BPH; urinary retention Post: BPH; urinary retention I identified the patient and participated in the time-out.: Yes Procedure Operation Date: 09/05/24 12:45 Procedure: TURP Surgeon Sudeep Hansen MD Roll Up Operator none Estimated Blood Loss 5 Findings Consistent with Post-Op Diagnosis Specimens Prostate chips Description of Procedure The patient was identified in the preoperative holding area, appropriate informed consents were reviewed and completed and the patient was transferred to the operative suite. Upon arrival, appropriate antibiotics and anesthesia were administered and the patient was placed in dorsal lithotomy position and prepped and draped in sterile fashion. We then has a past 27 [place] resectoscope with 30 degree lens and visual fastener sewing machine operator. Inspection revealed a healthy appearing urethra and an enlarged prostate with substantial lateral lobe hypertrophy as well as intravesical intrusion. He has a trabeculated bladder without any mucosal abnormalities aside from minor catheter related cystitis. Following my inspection I utilized a loop electrode and began by incising the bladder neck at 5 and 7:00. I then resected the intervening intravesical component of the prostate which flatten the bladder neck greatly and drastically improve the appearance of the prostate. I resected the left lateral lobe followed by the right lateral lobe. He required some anterior trimming. I completed my resection by trimming the apical tissue on both sides. I irrigated all chips out of the bladder and passed them off the table. Hemostasis was excellent. Of note, he has substantial left hydronephrosis which is been present for some time. Inspection revealed that the ureteral orifices were from the prostate by substantial and safe margin. The pinpoint left UO, however catheter my interest. I did probe it with a sensor wire and a 10 [place] double-lumen catheter. It appears to J-hook which implies it may be his outlet resistance and obstruction has contributed to the long-term obstruction. I did not proceed to stent this or dilate the ureter. I completed the case by placing a 22 [place] Smith catheter inflating the balloon with 30 cc of water. He will kept overnight and have a voiding trial tomorrow morning. I attest to the content of the Intraoperative Record and any orders documented therein. Any exceptions are noted below.
[2024-09-05] MEDS: SODIUM CHLORIDE 0.9% 500 ML IV SCH (15:59)
--- NOTE | 2024-09-05 16:21 | Anesthesiology Progress Note ---
Date of Service September 05, 2024 Anesthesia Post Procedure Vital Signs Vital Signs: Temp Pulse Pulse Resp BP Pulse Ox O2 Del Method 09/05/24 16:04 36.6 C 69 16 119/76 99 Room Air 09/05/24 15:35 36.5 C 69 16 113/73 100 Room Air 09/05/24 15:26 68 12 106/74 100 Room Air 09/05/24 15:15 64 12 105/71 100 Room Air 09/05/24 15:11 36.4 C L 63 12 100/63 100 Room Air 09/05/24 14:55 79 15 109/62 99 Room Air 09/05/24 14:50 73 16 98/60 L 99 Room Air 09/05/24 14:40 77 17 91/62 L 100 Oxymask 09/05/24 14:30 75 15 91/57 L 100 Oxymask 09/05/24 14:28 36.1 C L 70 10 L 78/49 L 99 Oxymask 09/05/24 10:12 36.6 C 75 14 132/78 97 Room Air O2 Flow Rate 09/05/24 16:04 09/05/24 15:35 09/05/24 15:26 09/05/24 15:15 09/05/24 15:11 09/05/24 14:55 09/05/24 14:50 09/05/24 14:40 6 09/05/24 14:30 6 09/05/24 14:28 6 09/05/24 10:12 Pain Intensity Lower Abdomen: Pain Intensity: 3 Transfer of Care Handoff Completed per policy Notes Mental Status: alert / awake / arousable and participated in evaluation Patient Amnestic to Procedure: Yes Nausea / Vomiting: adequately controlled Pain: adequately controlled Airway Patency, RR, SpO2: stable & adequate BP & HR: stable & adequate Hydration State: stable & adequate Anesthetic Complications: no major complications apparent
[2024-09-05] MEDS: GABAPENTIN 100 MG CAP PO SCH (20:29)
[2024-09-05] MEDS: ROSUVASTATIN CALCIUM 10 MG TAB PO SCH (20:29)
--- NOTE | 2024-09-05 22:07 | Electrocardiogram Report ---
Test Reason : Blood Pressure : */* mmHG Vent. Rate : 74 BPM Atrial Rate : 74 BPM P-R Int : 176 ms QRS Dur : 112 ms QT Int : 380 ms P-R-T Axes : 76 -23 57 degrees QTcB Int : 421 ms Normal sinus rhythm Cannot rule out Anterior infarct , age undetermined Abnormal ECG When compared with ECG of 12-Jul-2024 05:31, Minimal criteria for Anterior infarct are now Present Nonspecific T wave abnormality no longer evident in Inferior leads Nonspecific T wave abnormality, improved in Lateral leads Confirmed by Gallito Strickland ([id number]) on 09/05/2024 10:07:00 PM Referred By: Sudeep Hansen Confirmed By: Gallito Strickland
[2024-09-06] MEDS: CIPROFLOXACIN / D5W 400 MG/200 ML BAG IV SCH (02:45)
[2024-09-06] MEDS: IBUPROFEN 800 MG TAB PO PRN (05:46)
[2024-09-06 06:45] LABS: Hematocrit (blood only) 34.6 % (42.0-52.0); Hemoglobin 11.9 g/dl (14.0-18.0); Mean Corpuscular Hemoglobin 28.9 pg (25.0-34.0); Mean Corpuscular Hgb Conc 34.4 g/dL (32.0-36.0); Mean Platelet Volume 9.7 fL (9.4-12.4); Platelet Count 181 K/uL (130-400); RDW Coefficient of Variation 13.3 % (11.5-14.5); RDW Standard Deviation 41.1 fL (36.4-46.3); Red Blood Count 4.12 M/uL (4.70-6.10); White Blood Count 11.62 K/ul (4.8-10.8)
[2024-09-06 07:12] LABS: BUN Creatinine Ratio 20.1 (10-20); Calcium 9.4 mg/dl (8.6-10.3); Creatinine Clr Calc Pharmacy 62.1 ml/min; Potassium 4.7 mmol/L (3.5-5.1)
--- NOTE | 2024-09-06 08:03 | Urology Progress Note ---
Date of Service September 06, 2024 Assessment & Plan (1) Urinary retention due to benign prostatic hyperplasia: Plan: Postop day #1 status post TURP for urinary retention Okay to trial void this morning Plan for discharge home Admission and Anticipated Discharge Date Admission Date: September 05, 2024 Subjective Postop day #1 status post TURP Doing very well No pain or issues right now Physical Exam Physical Exam: Mildly bloody urine Results & Data Vital Signs (Past 12 Hours) Vital Signs Temp Pulse Resp BP Pulse Ox O2 Del Method 09/06/24 07:19 36.8 C 81 18 129/80 96 Room Air 09/06/24 03:02 36.9 C 94 H 18 122/75 96 Room Air 09/05/24 23:09 36.6 C 82 18 123/77 95 Room Air PG Care Time/CCT Total # of Minutes Spent Total Time Spent with Patient: Total time spent is greater than 50% in coordination of care (as documented) at patient's floor/unit and/or counseling patient: Coding Level of Care Code None Diagnoses Urinary retention due to benign prostatic hyperplasia N40.1; R33.8
[2024-09-06] MEDS: SPIRONOLACTONE 25 MG TAB PO SCH (08:20)
[2024-09-06] MEDS: amLODIPine BESYLATE 5 MG TAB PO SCH (08:20)
[2024-09-06] MEDS: FUROSEMIDE 40 MG TAB PO SCH (08:21)
[2024-09-06] MEDS: CITALOPRAM 20 MG TAB PO SCH (08:21)
[2024-09-06] MEDS: CETIRIZINE HCL 10 MG TABLET PO SCH (08:21)
[2024-09-06] MEDS: lisinopril 40 MG TAB PO SCH (08:21)
[2024-09-06] MEDS: POTASSIUM CHLORIDE CRTAB 20 MEQ TABCR PO SCH (08:22)
[2024-09-06 19:24] VITALS: RESP 16
[2024-09-07 06:41] LABS: Hematocrit (blood only) 33.9 % (42.0-52.0); Hemoglobin 11.6 g/dl (14.0-18.0); Mean Corpuscular Hgb Conc 34.2 g/dL (32.0-36.0); Mean Corpuscular Volume 84.8 fL (80.0-100.0); Mean Platelet Volume 9.3 fL (9.4-12.4); Platelet Count 177 K/uL (130-400); RDW Coefficient of Variation 13.6 % (11.5-14.5); RDW Standard Deviation 42.9 fL (36.4-46.3)
[2024-09-07 07:12] LABS: Calcium 9.2 mg/dl (8.6-10.3); Creatinine Clr Calc Pharmacy 41.6 ml/min; Potassium 4.6 mmol/L (3.5-5.1)
--- NOTE | 2024-09-07 14:27 | Urology Progress Note ---
Date of Service September 07, 2024 Assessment & Plan (1) Urinary retention due to benign prostatic hyperplasia: Plan: Patient POD #2 s/p TURP He is afebrile, hemodynamically stable Labs reviewedcreatinine 2.0 today, WBC 10.5, hemoglobin 11.6 Subjectively doing well Smith catheter required irrigation multiple times by nursing overnight and once this morning Catheter has been draining well since then Personally irrigated catheter at bedside with removal of moderate amount of small clots, urine light palmer at completion Will continue to monitor throughout the day, possibly discharge home later today or tomorrow Admission and Anticipated Discharge Date Admission Date: September 05, 2024 Subjective Patient seen and examined at bedside. Catheter required multiple irrigations overnight and once this morning, small clots removed Has been draining well since then He denies suprapubic pain at present No fever or chills Review of Systems Constitutional: as per Subjective / HPI Genitourinary: + as per Subjective / HPI Physical Exam Constitutional: well developed and well nourished; no acute distress Respiratory: normal respiratory effort; no respiratory distress and no labored breathing Gastrointestinal (Abdomen): Inspection/Auscultation: abdomen normal to inspe ction Musculoskeletal: Head/Neck/Chest: normocephalic Neurologic: moves all extremities and awake Psychiatric: Orientation: alert and oriented x 3 Genitourinary: Msith draining transparent urine urine Smith catheter was irrigated with sterile water. Small clots were removed. Urine was light palmer" Results & Data Vital Signs (Past 12 Hours) Vital Signs Temp Pulse Resp BP Pulse Ox O2 Del Method 09/07/24 07:07 36.7 C 73 16 116/70 95 Room Air PG Care Time/CCT Total # of Minutes Spent Total Time Spent with Patient: Total time spent is greater than 50% in coordination of care (as documented) at patient's floor/unit and/or counseling patient: Coding Level of Care Code None Diagnoses Urinary retention due to benign prostatic hyperplasia N40.1; R33.8
[2024-09-08 07:05] VITALS: BP 91/58; PULSE 82; TEMP 97.5; O2SAT 95
--- NOTE | 2024-09-08 07:39 | Urology Progress Note ---
Date of Service September 08, 2024 Assessment & Plan (1) Urinary retention due to benign prostatic hyperplasia: (2) Hematuria: Plan Postop day 3 status post TURP Fortunately failed his first voiding trial Probably had some mild clot retention Seems to be much better now We will observe and probably offer him a voiding trial on Wednesday as an outpatient Admission and Anticipated Discharge Date Admission Date: September 07, 2024 Subjective Feeling better today Unfortunately failed a voiding trial on Wednesday and then had some small clots within the catheter overnight from Wednesday into and did not want to have a repeat voiding trial yesterday Also his creatinine did bump slightly Overall he feels much better today and his urine is clearing, he is uncertain if he wants to try a voiding trial today or wait until Wednesday as an outpatient Physical Exam Physical Exam: Urine in the tubing is relatively clear with some old clot/brown Results & Data Vital Signs (Past 12 Hours) Vital Signs Temp Pulse Resp BP Pulse Ox O2 Del Method 09/08/24 07:01 36.4 C L 82 16 91/58 L 95 Room Air PG Care Time/CCT Total # of Minutes Spent Total Time Spent with Patient: Total time spent is greater than 50% in coordination of care (as documented) at patient's floor/unit and/or counseling patient: Coding Level of Care Code None Diagnoses Urinary retention due to benign prostatic hyperplasia N40.1; R33.8 Gross hematuria R31.0 Hematuria type: gross (2) Hematuria Hematuria type: gross Qualified Code(s): R31.0 - Gross hematuria
[2024-09-08 07:46] LABS: Basophils # (auto) 0.04 K/uL (0.00-0.20); Basophils % (auto) 0.4 %; Eosinophils # (auto) 0.08 K/uL (0.00-0.50); Eosinophils % (auto) 0.7 %; Hematocrit (blood only) 35.1 % (42.0-52.0); Hemoglobin 11.8 g/dl (14.0-18.0); Immature Granulocytes # (auto) 0.07 K/uL (0.01-0.20); Immature Granulocytes % (auto) 0.6 %; Lymphocytes # (auto) 2.02 K/uL (1.20-3.40); Lymphocytes % (auto) 17.8 %; Mean Corpuscular Hemoglobin 28.4 pg (25.0-34.0); Mean Corpuscular Hgb Conc 33.6 g/dL (32.0-36.0); Mean Corpuscular Volume 84.6 fL (80.0-100.0); Mean Platelet Volume 9.5 fL (9.4-12.4); Monocytes % (auto) 7.9 %; Neutrophils # (auto) 8.25 K/uL (1.40-6.50); Neutrophils % (auto) 72.6 %; Platelet Count 192 K/uL (130-400); RDW Standard Deviation 43.4 fL (36.4-46.3); Red Blood Count 4.15 M/uL (4.70-6.10); White Blood Count 11.36 K/ul (4.8-10.8)
[2024-09-08 08:03] LABS: Calcium 9.2 mg/dl (8.6-10.3); Creatinine Clr Calc Pharmacy 42.5 ml/min; Potassium 4.3 mmol/L (3.5-5.1)
--- NOTE | 2024-09-08 13:03 | Discharge Summary ---
Date of Service September 08, 2024 Admission HPI Per Admitting Provider Patient with BPH with obstruction here for TURP Principal Diagnosis BPH with obstruction Discharge Exam Constitutional well developed and well nourished; no acute distress Respiratory normal respiratory effort; no respiratory distress and no labored breathing Gastrointestinal (Abdomen) Inspection/Auscultation: abdomen normal to inspection Musculoskeletal Head/Neck/Chest: normocephalic Neurologic moves all extremities and awake Psychiatric Orientation: alert and oriented x 3 Genitourinary Smith draining blood tinged yellow urine Discharge Data Allergies Allergy/AdvReac Type Severity Reaction Status Date / Time No Known Allergies Allergy Verified 09/05/24 10:33 Procedures Performed Operation Date: 09/05/24 12:45 Actual Procedures p Transurethral Resection Prostate(Not Applicable) - Sudeep Hansen MD Hospital Course (1) Urinary retention due to benign prostatic hyperplasia: (2) Hematuria: Plan Postop day 3 status post TURP Fortunately failed his first voiding trial Probably had some mild clot retention Seems to be much better now We will observe and probably offer him a voiding trial on Wednesday as an outpatient Patient reassessed this afternoon and is ready for discharge to home with Smith Total Time Total Time Spent Total Time Spent (In Minutes): 25 Discharge Plan Discharge Items Patient Disposition: Home - Self-Care Reason For Visit: Benign Prostatic Hyperplasia with Lower Discharge Diagnosis: Benign prostatic hyperplasia with lower urinary tract symptoms Activity: Per Instructions section Lifting: No more than 25 pounds Bathing Comment: Okay to shower after discharge Sexual Activity: Wait until after follow-up appointment Exercise/Sports: Wait until after follow-up appointment Driving/Machine Use: Resume 1 day after discharge Non-emergency contact: Surgeon and Urologist Call non-emergency contact if: your pain is not controlled, you have a fever and your temperature is above 101 Follow-up/Referrals: Marsha Mccoy MD [Primary Care Provider] - Diet: Regular Addtl Attending Provider Instructions: Please take all medications as prescribed and keep all follow-ups as scheduled. Please call our office at [phone] with any questions, concerns or need to reschedule appointments for any reason. We are happy to assist you. Tips for your recovery at home: Dont be alarmed by brownish or reddish blood or clots in your urine. This is a result of the procedure. This may occur off and on for weeks to months after the procedure but should continue to improve. Drink plenty of fluids during the day (enough to keep your urine very light colored). This will help keep a healthy flow of urine. Do not lift >25 lbs until your followup Avoid constipation. Please use a stool softener (Colace) for the first two weeks after your procedure Be sure to finish the antibiotics as prescribed. If you go home with a catheter, please wash tubing where it enters your body twice daily with mild soap (Dove or Dial). Once your catheter is removed, expect some blood in your urine and some burning when you urinate. You should have an appointment to have this removed, if you do not please call our office to arrange. Pending Studies at Discharge: Yes (pathology) Stand-Alone Forms: My [facility], Smoking Cessation Medications and DC Order Prescriptions: Continued citalopram [Celexa] 20 mg tablet 20 mg PO QAM furosemide [Lasix] 40 mg tablet 40 mg PO QAM potassium chloride 20 mEq tablet,ER particles/crystals 20 meq PO QAM cetirizine 10 mg tablet 10 mg PO QAM ibuprofen 800 mg tablet 800 mg PO TID gabapentin 100 mg capsule 200 mg PO HS lisinopril 40 mg tablet 40 mg PO QAM rosuvastatin 10 mg tablet 10 mg PO HS diclofenac sodium 1 % gel 1 ea TOPICAL BID PRN (Reason: Pain) amlodipine [Norvasc] 5 mg Tablet 2.5 mg PO QAM Qty: 20 0RF spironolactone 25 mg tablet 25 mg PO QAM aspirin 81 mg capsule 81 mg PO QAM Discharge Orders: Discharge Order (Routine); Ordered 09/08/24 Ordered By: Vicki Jackson Admission Data Admit Date/Time: 09/07/24 15:50 Attending Provider: Sudeep Hansen Admit Provider: Sudeep Hansen Primary Care Provider: Marsha Mccoy Other Providers: [facility] Coding Level of Care Code 86598 IN/OBS DISCH 30 MIN/LESS Diagnoses Urinary retention due to benign prostatic hyperplasia N40.1; R33.8 Gross hematuria R31.0 Hematuria type: gross
== END 2024-09-08 15:31 | disposition home or self-care (01) | DRG 713 ==
LOC: ASU 10:07 → 3N 10:07
DX: Z79.82 Long term (current) use of aspirin; N13.30 Unspecified hydronephrosis; R33.9 Retention of urine, unspecified; N40.1 Benign prostatic hyperplasia with lower urinary tract symptoms